=== PATIENT | female | born 1990 | race Caucasian/White ===

== ENCOUNTER 2017-07-11 23:50 | Inpatient (IN) | payer MEDICAID, OTHER ==
[~2017-07-11] VITALS: Ht 165.1 cm; Wt 68.0 kg
[2017-07-11 23:53] VITALS: Ht 165.1 cm; Wt 68.0 kg
[2017-07-12] VITALS (8 sets, daily range): BP systolic 103–115; BP diastolic 72–81; PULSE 90–103; RESP 13–18; TEMP 98.3
[2017-07-12] MEDS ORDERED: SOD CHLORIDE 0.9% 1,000 ML IV STA (00:43)
[2017-07-12 03:11] LABS: BASOPHIL # 0.1 10^3/ul (0.0-0.1); BASOPHILS % 0.5 % (0.0-2.0); EOSINOPHILS # 0.1 10^3/ul (0.0-0.5); HEMATOCRIT 37.5 % (37.0-47.0); HEMOGLOBIN 13.6 g/dl (12.0-16.0); LYMPHOCYTES # 2.7 10^3/ul (0.8-2.9); LYMPHOCYTES % 23.9 % (15.0-51.0); MEAN CORPUSCULAR HGB CONC 36.3 g/dl (32.0-37.0); MEAN CORPUSCULAR VOLUME 82.8 fl (82.0-101.0); MEAN PLATELET VOLUME 10.1 fl (7.4-10.4); MONOCYTE # 1.2 10^3/ul (0.3-0.9); MONOCYTES % 10.5 % (0.0-11.0); NEUTROPHILS % 63.3 % (39.0-77.0); PLATELET COUNT 320 10^3/UL (140-415); RED BLOOD COUNT 4.53 10^6/ul (4.20-5.40); WHITE BLOOD COUNT 11.3 10^3/ul (4.8-10.8)
[2017-07-12 03:18] LABS: ADD UMIC YES; UR ASCORBIC ACID NEGATIVE (NEGATIVE); UR BILIRUBIN (Dip) NEGATIVE (NEGATIVE); UR BLOOD (Dip) 1+ mg/dL (NEGATIVE); UR CLARITY CLEAR (CLEAR); UR COLOR STRAW (YELLOW); UR GLUCOSE (Dip) 3+ mg/dL (NEGATIVE); UR KETONES (Dip) 2+ mg/dL (NEGATIVE); UR LEUKOCYTE ESTERASE (Dip) 1+ Leu/ul (NEGATIVE); UR MUCUS FEW /HPF (NONE SEEN); UR NITRITE (Dip) NEGATIVE (NEGATIVE); UR RBC 3 /HPF (0-5); UR SPECIFIC GRAVITY (Dip) 1.009 (1.003-1.030); UR SQUAMOUS EPITHELIAL CELL FEW /HPF (FEW); UR TOTAL PROTEIN (Dip) 1+ mg/dl (NEGATIVE); UR UROBILINOGEN (Dip) NEGATIVE (NEGATIVE)
[2017-07-12 03:38] LABS: ALBUMIN 4.1 g/dl (3.3-4.9); ALBUMIN/GLOBULIN RATIO 1.32; BILIRUBIN,INDIRECT 0.4 mg/dl (0-1.1); BILIRUBIN,TOTAL 0.4 mg/dl (0.2-1.3); CALCIUM 8.9 mg/dl (8.4-10.2); CREATININE 0.81 mg/dl (0.44-1.00); POTASSIUM 3.1 mmol/L (3.5-5.1); TOTAL PROTEIN 7.2 g/dl (6.1-8.1)
[2017-07-12] MEDS ORDERED: POTASSIUM CHLORIDE (SR) 20 MEQ TAB PO ONE (04:16)
[2017-07-12] MEDS ORDERED: CEFTRIAXONE 1 GM/50 ML (PMX) 50 ML IVPB ONE (04:30)
[2017-07-12] MEDS ORDERED: SOD CHLORIDE 0.9% 1,000 ML IV ONE ×2 (06:00)
[2017-07-12] MEDS ORDERED: INSULIN HUMAN REGULAR 100 UNIT in SOD CHLORIDE 0.9% 99 ML IV SCH ×2 (06:15→16:00)
[2017-07-12] MEDS ORDERED: DEXTROSE 50% 25 ML IV PRN (06:30)
[2017-07-12] MEDS ORDERED: ADJUSTMENT OF INSULIN INFUSION RATE (DKA PROTOCOL) XX SCH (06:30)
[2017-07-12] MEDS ORDERED: DEXTROSE 50% 50 ML IV PRN (06:30)
[2017-07-12] MEDS ORDERED: SOD CHLORIDE 0.9% 1,000 ML IV SCH ×2 (06:48→10:30)
[2017-07-12] MEDS ORDERED: POTASSIUM CHLORIDE 20 MEQ in SOD CHLORIDE 0.9% 1,000 ML IV SCH (07:00)
[2017-07-12] MEDS: NS + KCL 20 MEQ 1,000 ML IV SCH ×2 (07:00→16:00)
[2017-07-12] MEDS ORDERED: morphine 2 MG INJ IV PRN (07:00)
[2017-07-12] MEDS ORDERED: ACETAMINOPHEN 650MG/20.3ML CUP PO PRN (07:00)
[2017-07-12] MEDS ORDERED: ONDANSETRON 4 MG INJ IV PRN (07:00)
[2017-07-12] MEDS: PANTOPRAZOLE 40 MG INJ IV SCH (07:15)
[2017-07-12] MEDS ORDERED: POTASSIUM CHLORIDE (SR) 20 MEQ TAB PO STA (07:17)
--- NOTE | 2017-07-12 07:19 | ERA ---
ER Documentation Chief Complaint Date/Time DATE: 07/12/17 TIME: 07:12 Chief Complaint bib , cc: hyperglycemia, insulin drip. ama from [place],[id number] HPI 27-year-old female presents for new onset diabetes just diagnosed in [place] 2 days ago as well as feeling generally "bad", as well as intermittent shortness of breath. She previously had no medical problems. She has been Urinating more than usual as well. ROS All systems reviewed and are negative except as per history of present illness. Medications Home Meds No Active Prescriptions or Reported Meds Allergies Allergies: Coded Allergies: No Known Allergy (Unverified , 07/11/17) PMhx/Soc History of Surgery: No Anesthesia Reaction: No Hx Neurological Disorder: No Hx Respiratory Disorders: No Hx Cardiac Disorders: No Hx Psychiatric Problems: No Hx Miscellaneous Medical Probl: No Hx Alcohol Use: Yes (SOCIALLY 1 PER 3 MONTHS) Hx Substance Use: No Hx Tobacco Use: No Smoking Status: Never smoker Physical Exam Vitals Vital Signs Date Time Temp Pulse Resp B/P Pulse Ox O2 Delivery O2 Flow Rate FiO2 07/12/17 07:00 98.3 83 20 92/72 100 Room Air 07/12/17 05:05 98.0 93 20 98/70 100 Room Air 07/12/17 03:00 98.9 90 22 108/79 100 Room Air 07/12/17 01:00 98.5 94 17 109/78 100 Room Air 07/11/17 23:53 98.6 81 19 126/81 100 Physical Exam Const: [] Mild distress, appears uncomfortable Head: Atraumatic Eyes: Normal Conjunctiva ENT: Normal External Ears, Nose and Mouth. Neck: Full range of motion..~ No meningismus. Resp: Clear to auscultation bilaterally Cardio: Regular rate and rhythm, no murmurs Abd: Soft, non tender, non distended. Normal bowel sounds Skin: No petechiae or rashes Back: No midline or flank tenderness Ext: No cyanosis, or edema Neur: Awake and alert Psych: Normal Mood and Affect Result Diagram: 07/12/17 0300 07/12/17 0300 Results 24 hrs Laboratory Tests Test 07/12/17 00:08 07/12/17 00:49 07/12/17 02:50 07/12/17 03:00 Bedside Glucose 326mg/dL 299mg/dL Urine Color STRAW Urine Clarity CLEAR Urine pH 6.0 Urine Specific [place] 1.009 Urine Ketones 2+mg/dL Urine Nitrite NEGATIVEmg/dL Urine Bilirubin NEGATIVEmg/dL Urine Urobilinogen NEGATIVEmg/dL Urine Leukocyte Esterase 1+[place]/ul Urine Microscopic RBC 3/HPF Urine Microscopic WBC 2/HPF Urine Squamous Epithelial Cells FEW/HPF Urine Mucus FEW/HPF Urine Hemoglobin 1+mg/dL Urine Glucose 3+mg/dL Urine Total Protein 1+mg/dl White Blood Count 11.310^3/ul Red Blood Count 4.5310^6/ul Hemoglobin 13.6g/dl Hematocrit 37.5% Mean Corpuscular Volume 82.8fl Mean Corpuscular Hemoglobin 30.0pg Mean Corpuscular Hemoglobin Concent 36.3g/dl Red Cell Distribution Width 15.0% Platelet Count 53722^3/UL Mean Platelet Volume 10.1fl Neutrophils % 63.3% Lymphocytes % 23.9% Monocytes % 10.5% Eosinophils % 1.0% Basophils % 0.5% Nucleated Red Blood Cells % 0.0/100WBC Neutrophils # (Manual) 7.110^3/ul Lymphocytes # 2.710^3/ul Monocytes # 1.210^3/ul Eosinophils # 0.110^3/ul Basophils # 0.110^3/ul Nucleated Red Blood Cells # 0.010^3/ul Sodium Level 142mmol/L Potassium Level 3.1mmol/L Chloride Level 110mmol/L Carbon Dioxide Level 10mmol/L Anion Gap 25 Blood Urea Nitrogen 3mg/dl Creatinine 0.81mg/dl Glucose Level 293mg/dl Hemoglobin A1c % Calcium Level 8.9mg/dl Total Bilirubin 0.4mg/dl Direct Bilirubin 0.00mg/dl Indirect Bilirubin 0.4mg/dl Aspartate Amino Transf (AST/SGOT) 35IU/L Alanine Aminotransferase (ALT/SGPT) 68IU/L Alkaline Phosphatase 163IU/L Troponin I < 0.012ng/ml Total Protein 7.2g/dl Albumin 4.1g/dl Globulin 3.10g/dl Albumin/Globulin Ratio 1.32 Lipase 384U/L Serum HCG, Qualitative NEGATIVE Current Medications Medications (Trade) Dose Ordered Sig/Barak Route PRN Reason Start Time Stop Time Status Last Admin Dose Admin Sodium Chloride 1,000 ml @ 1,000 mls/hr Q1H STAT IV 07/12/17 00:43 07/12/17 01:42 DC 07/12/17 01:42 Ceftriaxone Sodium (Rocephin) 50 ml @ 100 mls/hr ONCE ONCE IVPB 07/12/17 04:30 07/12/17 04:59 DC 07/12/17 04:21 Potassium Chloride 40 meq 40 meq ONCE ONCE PO 07/12/17 04:16 07/12/17 04:17 DC 07/12/17 04:21 Sodium Chloride 1,000 ml @ 1,000 mls/hr Q1H ONCE IV 07/12/17 06:00 07/12/17 06:59 DC 07/12/17 06:36 Sodium Chloride 1,000 ml @ 1,000 mls/hr Q1H ONCE IV 07/12/17 06:00 07/12/17 06:59 DC Insulin Human Regular/Sodium Chloride (Novolin-R/NS) 100 ml @ 6.8 mls/hr TITRATE IV 07/12/17 06:15 07/13/17 06:14 07/12/17 07:02 Miscellaneous Information 1 ea NOTE XX 07/12/17 06:30 Dextrose (D50w Syringe) 25 ml PRN PRN IV DECREASED GLUCOSE 07/12/17 06:30 Dextrose 50 ml 50 ml PRN PRN IV DECREASED GLUCOSE 07/12/17 06:30 Sodium Chloride (NS) 1,000 ml @ 125 mls/hr Q8H IV 07/12/17 06:48 07/12/17 06:54 DC Ondansetron HCl (Zofran Inj) 4 mg Q6H PRN IV NAUSEA AND/OR VOMITING 07/12/17 07:00 Acetaminophen (Tylenol Liquid) 650 mg Q6H PRN PO PAIN LEVEL 1-3 OR FEVER 07/12/17 07:00 Morphine Sulfate (morphine) 2 mg Q4H PRN IV PAIN LEVEL 7-10 07/12/17 07:00 Pantoprazole 40 mg 40 mg DAILY@06 IV 07/12/17 07:00 Potassium Chloride 20 meq/ Sodium Chloride 1,010 ml @ 125 mls/hr Q8H5M IV 07/12/17 07:00 07/12/17 07:00 DC Potassium Chloride/Sodium Chloride (NS-KCl 20 Meq) 1,000 ml @ 125 mls/hr Q8H IV 07/12/17 07:00 Procedures/MDM Diabetic ketoacidosis with as diagnosis of diabetes mellitus. Initial presentation for new onset diabetes. She is given 3 L of normal saline emergency room and started on insulin drip. Hemoglobin A1c was so high that had to be sent out in order to be read properly. Patient will need to be started on Procrit diabetic therapy in the hospital after resolution of her DKA. She is feeling better after fluid administration. She did have a EKG with possible signs of ischemia with T-wave inversions however she has a negative troponin and no chest pain. Dr. Moreira is admitting to the ICU. EKG interpretation: Normal sinus rhythm, normal axis, T-wave inversions in leads III and aVF concerning for possible ischemia. patient monitor interpretation: Normal sinus rhythm with mild sinus tachycardia no other arrhythmias Critical care time greater than 35 minutes: This includes treatment of DKA, use of insulin drip, all visits patient's bedside to reassess status, repeated chart review for changing laboratories and electrolytes, discussion with admitting doctor and patient. This does not include any billable procedures Departure Diagnosis: Primary Impression: DKA (diabetic ketoacidoses) Condition: Serious KYLAHJULIADEENALAURIE ASHER Jul 12, 2017 07:19
[2017-07-12 07:31] LABS: CALCIUM 8.4 mg/dl (8.4-10.2); CREATININE 0.76 mg/dl (0.44-1.00)
[2017-07-12 07:33] LABS: POTASSIUM 2.6 mmol/L (3.5-5.1)
[2017-07-12] MEDS: CIPROFLOXACIN 400MG/D5W 200 ML IVPB SCH ×2 (08:21→21:32)
[2017-07-12] MEDS ORDERED: INSULIN HUMAN REGULAR 100 UNIT in SOD CHLORIDE 0.9% 99 ML IV STA (08:22)
[2017-07-12] MEDS ORDERED: DEXTROSE 50% 50 ML SYRINGE IV PRN ×6 (08:30→18:00)
[2017-07-12] MEDS ORDERED: ACCU-CHEK XX SCH (08:30)
[2017-07-12] MEDS ORDERED: POTASSIUM CHLORIDE 50 ML IVPB PRN (08:30)
[2017-07-12] MEDS ORDERED: D5-NS + KCL 20 MEQ 1,000 ML IV SCH (09:30)
[2017-07-12 09:37] LABS: CALCIUM 7.9 mg/dl (8.4-10.2); CREATININE 0.79 mg/dl (0.44-1.00)
[2017-07-12 09:43] LABS: POTASSIUM 2.4 mmol/L (3.5-5.1)
[2017-07-12] MEDS: POTASSIUM CHLORIDE 250 ML IVPB SCH ×3 (11:20→17:44)
[2017-07-12 11:39] LABS: ANION GAP 17 (8-16); CALCIUM 8.2 mg/dl (8.4-10.2); CARBON DIOXIDE 12 mmol/L (21-31); CHLORIDE 116 mmol/L (97-110); CREATININE 0.62 mg/dl (0.44-1.00); GLUCOSE 258 mg/dl (70-220); SODIUM 142 mmol/L (135-144)
[2017-07-12 11:41] LABS: BLOOD UREA NITROGEN < 2 mg/dl (7-20)
[2017-07-12 11:42] LABS: POTASSIUM 2.6 mmol/L (3.5-5.1)
[2017-07-12 13:09] LABS: ANION GAP 19 (8-16); CALCIUM 8.4 mg/dl (8.4-10.2); CARBON DIOXIDE 10 mmol/L (21-31); CHLORIDE 116 mmol/L (97-110); CREATININE 0.64 mg/dl (0.44-1.00); GLUCOSE 289 mg/dl (70-220); SODIUM 142 mmol/L (135-144)
[2017-07-12 13:10] LABS: BLOOD UREA NITROGEN < 2 mg/dl (7-20)
[2017-07-12 13:12] LABS: POTASSIUM 2.9 mmol/L (3.5-5.1)
--- NOTE | 2017-07-12 14:01 | HP ---
Date/Time of Note Date/Time of Note DATE: 07/12/17 TIME: 13:51 Assessment/Plan VTE Prophylaxis VTE Prophylaxis Intervention: SCD's Assessment/Plan Assessment/Plan ASSESSMENT 27 yo female with newly diagnosed diabetes few days ago now with DKA PLAN ICU admission cont DKA protocol correct electrolytes as needed Endocrine consult has been placed HPI/ROS Admit Date/Time Admit Date/Time Hx of Present Illness This is a 27 yo female who was recently diagnosed with diabetes few days ago presented to ER c/o elevated glucose. She was admitted in a hospital in [place] 3 days ago, but left AMA not to miss her flight. In ER, labs consistent with DKA and has been started on DKA protocol. She has been severely hypokalemic requiring stopping insulin periodicly. She denied fever, chills, CP or SOB. Urinalysis neg for UTI. PMH/Family/Social Social History Smoking Status: Never smoker Exam/Review of Systems Vital Signs Vitals Vital Signs Date Time Temp Pulse Resp B/P Pulse Ox O2 Delivery O2 Flow Rate FiO2 07/12/17 13:09 88 20 106/73 100 Room Air 07/12/17 11:00 98.3 Labs Result Diagram: 07/12/17 0300 07/12/17 1200 Medications Medications Current Medications Ondansetron HCl (Zofran Inj) 4 mg Q6H PRN IV NAUSEA AND/OR VOMITING Last administered on 07/12/17 09:48; Admin Dose 4 MG; Start 07/12/17 at 07:00 Acetaminophen (Tylenol Liquid) 650 mg Q6H PRN PO PAIN LEVEL 1-3 OR FEVER; Start 07/12/17 at 07:00 Morphine Sulfate (morphine) 2 mg Q4H PRN IV PAIN LEVEL 7-10; Start 07/12/17 at 07:00 Pantoprazole 40 mg 40 mg DAILY@06 IV Last administered on 07/12/17 07:15; Admin Dose 40 MG; Start 07/12/17 at 07:00 Potassium Chloride/Sodium Chloride 1,000 ml @ 125 mls/hr Q8H IV Last administered on 07/12/17 07:00; Admin Dose 125 MLS/HR; Start 07/12/17 at 07:00 Ciprofloxacin/ Dextrose (Cipro Ivpb) 200 ml @ 200 mls/hr Q12 IVPB Last administered on 07/12/17 08:21; Admin Dose 200 MLS/HR; Start 07/12/17 at 09:00 Dextrose (D50w Syringe) 50 ml Q15M PRN IV For BS 50 or less; Start 07/12/17 at 08:30 Dextrose (D50w Syringe) 25 ml Q15M PRN IV BS between 50-70; Start 07/12/17 at 08 :30 Diagnostic Test (Pha) 1 ea 1 ea Q1H XX Last administered on 07/12/17 09:00; Admin Dose 1 EA; Start 07/12/17 at 08:30 Potassium Chloride 250 ml @ 62.5 mls/hr Q4H IVPB Last administered on 11:20; Admin Dose 62.5 MLS/HR; Start 07/12/17 at 10:30; Stop 07/12/17 at 18: 29 Sodium Chloride (NS) 1,000 ml @ 150 mls/hr Q6H40M IV ; Start 07/12/17 at 10:30 NICK ARAUJO MD Jul 12, 2017 14:01
[2017-07-12 14:23] LABS: ANION GAP 19 (8-16); CALCIUM 8.1 mg/dl (8.4-10.2); CHLORIDE 118 mmol/L (97-110); CREATININE 0.65 mg/dl (0.44-1.00); GLUCOSE 316 mg/dl (70-220); POTASSIUM 3.4 mmol/L (3.5-5.1); SODIUM 142 mmol/L (135-144)
[2017-07-12 14:25] LABS: BLOOD UREA NITROGEN < 2 mg/dl (7-20)
[2017-07-12 14:26] LABS: CARBON DIOXIDE 8 mmol/L (21-31)
[2017-07-12] MEDS: ACCU-CHEK XX SCH ×8 (16:07→23:00)
[2017-07-12 17:20] LABS: ANION GAP 21 (8-16); CALCIUM 8.8 mg/dl (8.4-10.2); CHLORIDE 120 mmol/L (97-110); CREATININE 0.67 mg/dl (0.44-1.00); GLUCOSE 296 mg/dl (70-220); SODIUM 147 mmol/L (135-144)
[2017-07-12 17:38] LABS: BLOOD UREA NITROGEN < 2 mg/dl (7-20)
[2017-07-12 17:40] LABS: CARBON DIOXIDE 9 mmol/L (21-31); POTASSIUM 2.9 mmol/L (3.5-5.1)
--- NOTE | 2017-07-12 17:42 | CONS ---
Date/Time of Note Date/Time of Note DATE: 07/12/17 TIME: 17:29 Assessment/Plan Assessment/Plan Problems: (1) DKA (diabetic ketoacidoses) Status: Acute Comment: Continue IV fluid. Will reduce tonicity from normal saline to half- normal saline to improve hyperchloremic acidosis. Continue IV dextrose and maintain goal blood glucose between 150 and 250 mg/dL. Continue IV insulin drip at 0.1 U/kg/h until anion gap closed and bicarbonate normalizing. Will initiate Lantus tonight at 14 units. Once patient starts p.o. diet tomorrow can start NovoLog at 6 units before each meal. Qualifiers: (2) New onset type 1 diabetes mellitus, uncontrolled Status: Acute Comment: Very strong suspicion of diagnosis type 1 diabetes in this patient. Will order jenelle 65 antibody and insulin autoantibody and islet cell antibodies. Patient will require extensive diabetes education which I have initiated today. Consultation Date/Type/Reason Admit Date/Time July 12, 2017 at 2 PM Date of Consultation: Jul 12, 2017 Type of Consultation: Endocrinology Reason for Consultation Diabetic ketoacidosis Referring Provider: NICK ARAUJO MD Hx of Present Illness 27-year-old female without significant past medical history in usual state of health until approximately 2-3 weeks ago when she developed new onset polydipsia and polyuria. Admits to weight loss of greater than 30 pounds in the last month. Positive nocturia 2-3 times a night for the last 2-3 weeks. 2 weeks ago patient with single episode of recurrent emesis that she thought was food poisoning. Last week went on a family vacation to [place]. While out hiking patient developed severe shortness of breath. Did not improve with stopping to rest. Paramedics called and patient was found to have hyperglycemia. She was mentally out of it as she states and did not really understand the diagnosis. Admitted to outside hospital intensive care unit for DKA. However before treatment could be completed she left the hospital AGAINST MEDICAL ADVICE to make her flight home. Patient was given a single injection of long-acting insulin and told to go straight to the hospital when she arrived home. When she arrived here at [facility] she was found to still be in diabetic ketoacidosis. Glucose was 300 mg/dL, bicarbonate was 10, there were ketones in the urine, and the anion gap was open. Patient started on IV insulin drip and admitted to care unit. Endocrinology consulted. 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 [employer], , one child Alcohol Use: occasionally Smoking Status: Never smoker Drug Use: none Exam/Review of Systems Vital Signs Vitals VS - Last 72 Hours, by Label Date Time Temp Pulse Resp B/P Pulse Ox O2 Delivery O2 Flow Rate FiO2 07/12/17 16:00 90 07/12/17 15:45 98.2 16 108/72 98 Room Air 07/12/17 14:00 83 22 93/56 99 Room Air 07/12/17 13:09 88 20 106/73 100 Room Air 07/12/17 11:00 98.3 97 20 110/81 99 Room Air 07/12/17 10:00 98.3 93 20 110/74 99 Room Air 07/12/17 09:00 98.3 86 20 105/74 98 Room Air 07/12/17 08:00 98.3 83 20 104/77 100 Room Air 07/12/17 07:00 98.3 83 20 92/72 100 Room Air 07/12/17 06:30 98.3 86 20 104/67 98 Room Air 07/12/17 05:05 98.0 93 20 98/70 100 Room Air 07/12/17 03:00 98.9 90 22 108/79 100 Room Air 07/12/17 01:00 98.5 94 17 109/78 100 Room Air 07/11/17 23:53 98.6 81 19 126/81 100 Vital Signs Date Time Temp Pulse Resp B/P Pulse Ox O2 Delivery O2 Flow Rate FiO2 07/12/17 16:00 90 07/12/17 15:45 98.2 16 108/72 98 Room Air Exam Constitutional: alert, oriented, well developed Psych: nl mood/affect, no complaints Eyes: EOMI, PERRL, nl conjunctiva, nl lids, nl sclera ENMT: nl external ears & nose, No mucosa pink and moist (Tacky and dry) Neck: non-tender, supple, No bruits, No masses, No thyromegaly Respiratory: clear to auscultation, normal air movement Cardiovascular: nl pulses, regular rate and rhythm, No edema, No murmurs/extra sounds, No rub Gastrointestinal: bowel sounds, nl liver, spleen, non-tender, soft, No mass, No rebound or guarding Musculoskeletal: nl extremities to inspection Extremities: normal pulses, No clubbing, No cyanosis, No edema Neurological: HATCHERY WORKER II-XII intact, nl mental status, nl speech, nl strength Additional Comments Bedside Glucose - 72 Hours Test 07/12/17 00:08 07/12/17 00:49 07/12/17 06:48 07/12/17 08:01 Bedside Glucose 326mg/dL (70-220) H 299mg/dL (70-220) H 270mg/dL (70-220) H 243mg/dL (70-220) H Test 07/12/17 09:02 07/12/17 10:02 07/12/17 11:02 07/12/17 12:04 Bedside Glucose 241mg/dL (70-220) H 217mg/dL (70-220) 252mg/dL (70-220) H 273mg/dL (70-220) H Test 07/12/17 12:46 07/12/17 16:06 Bedside Glucose 291mg/dL (70-220) H 278mg/dL (70-220) H Results Result Diagram: 07/12/17 0300 07/12/17 1355 Results 24 hrs Laboratory Tests Test 07/12/17 00:08 07/12/17 00:49 07/12/17 02:50 07/12/17 03:00 Bedside Glucose 326 H 299 H Urine Color STRAW Urine Clarity CLEAR Urine pH 6.0 Urine Specific [place] 1.009 Urine Ketones 2+ H Urine Nitrite NEGATIVE Urine Bilirubin NEGATIVE Urine Urobilinogen NEGATIVE Urine Leukocyte Esterase 1+ H Urine Microscopic RBC 3 Urine Microscopic WBC 2 Urine Squamous Epithelial Cells FEW Urine Mucus FEW A Urine Hemoglobin 1+ H Urine Glucose 3+ H Urine Total Protein 1+ H White Blood Count 11.3 H Red Blood Count 4.53 Hemoglobin 13.6 Hematocrit 37.5 Mean Corpuscular Volume 82.8 Mean Corpuscular Hemoglobin 30.0 Mean Corpuscular Hemoglobin Concent 36.3 Red Cell Distribution Width 15.0 H Platelet Count 320 Mean Platelet Volume 10.1 Neutrophils % 63.3 Lymphocytes % 23.9 Monocytes % 10.5 Eosinophils % 1.0 Basophils % 0.5 Nucleated Red Blood Cells % 0.0 Neutrophils # (Manual) 7.1 Lymphocytes # 2.7 Monocytes # 1.2 H Eosinophils # 0.1 Basophils # 0.1 Nucleated Red Blood Cells # 0.0 Sodium Level 142 Potassium Level 3.1 L Chloride Level 110 Carbon Dioxide Level 10 L Anion Gap 25 H Blood Urea Nitrogen 3 L Creatinine 0.81 Glucose Level 293 H Hemoglobin A1c Calcium Level 8.9 Total Bilirubin 0.4 Direct Bilirubin 0.00 Indirect Bilirubin 0.4 Aspartate Amino Transf (AST/SGOT) 35 Alanine Aminotransferase (ALT/SGPT) 68 Alkaline Phosphatase 163 H Troponin I < 0.012 Total Protein 7.2 Albumin 4.1 Globulin 3.10 Albumin/Globulin Ratio 1.32 Lipase 384 H Serum HCG, Qualitative NEGATIVE Test 07/12/17 06:42 07/12/17 06:48 07/12/17 08:01 07/12/17 08:55 Sodium Level 140 144 Potassium Level 2.6 *L 2.4 *L Chloride Level 112 H 117 H Carbon Dioxide Level 10 L 12 L Anion Gap 21 H 17 H Blood Urea Nitrogen 3 L 2 L Creatinine 0.76 0.79 Glucose Level 285 H 237 H Hemoglobin A1c Calcium Level 8.4 7.9 L Bedside Glucose 270 H 243 H Phosphorus Level 0.7 L Test 07/12/17 09:02 07/12/17 10:02 07/12/17 10:44 07/12/17 11:02 Bedside Glucose 241 H 217 252 H Sodium Level 142 Potassium Level 2.6 *L Chloride Level 116 H Carbon Dioxide Level 12 L Anion Gap 17 H Blood Urea Nitrogen < 2 L Creatinine 0.62 Glucose Level 258 H Calcium Level 8.2 L Test 07/12/17 12:00 07/12/17 12:04 07/12/17 12:46 07/12/17 13:55 Sodium Level 142 142 Potassium Level 2.9 *L 3.4 L Chloride Level 116 H 118 H Carbon Dioxide Level 10 L 8 *L Anion Gap 19 H 19 H Blood Urea Nitrogen < 2 L < 2 L Creatinine 0.64 0.65 Glucose Level 289 H 316 H Calcium Level 8.4 8.1 L Bedside Glucose 273 H 291 H Test 07/12/17 16:06 Bedside Glucose 278 H Medications Medications Current Medications Ondansetron HCl (Zofran Inj) 4 mg Q6H PRN IV NAUSEA AND/OR VOMITING Last administered on 07/12/17 09:48; Admin Dose 4 MG; Start 07/12/17 at 07:00 Acetaminophen (Tylenol Liquid) 650 mg Q6H PRN PO PAIN LEVEL 1-3 OR FEVER; Start 07/12/17 at 07:00 Morphine Sulfate (morphine) 2 mg Q4H PRN IV PAIN LEVEL 7-10; Start 07/12/17 at 07:00 Pantoprazole 40 mg 40 mg DAILY@06 IV Last administered on 07/12/17 07:15; Admin Dose 40 MG; Start 07/12/17 at 07:00 Potassium Chloride/Sodium Chloride 1,000 ml @ 125 mls/hr Q8H IV Last administered on 07/12/17 07:00; Admin Dose 125 MLS/HR; Start 07/12/17 at 07:00 Ciprofloxacin/ Dextrose 200 ml @ 200 mls/hr Q12 IVPB Last administered on 08:21; Admin Dose 200 MLS/HR; Start 07/12/17 at 09:00 Potassium Chloride 250 ml @ 62.5 mls/hr Q4H IVPB Last administered on 11:20; Admin Dose 62.5 MLS/HR; Start 07/12/17 at 10:30; Stop 07/12/17 at 18: 29 Sodium Chloride (NS) 1,000 ml @ 150 mls/hr Q6H40M IV Last administered on 16:00; Admin Dose 150 MLS/HR; Start 07/12/17 at 10:30; Status Future Hold Dextrose (D50w Syringe) 50 ml Q15M PRN IV For BS 50 or less; Start 07/12/17 at 16:00 Dextrose (D50w Syringe) 25 ml Q15M PRN IV BS between 50-70; Start 07/12/17 at 16 :00 Diagnostic Test (Pha) (Accu-Chek) 1 ea Q1H XX Last administered on 9/7/17at 16: 07; Admin Dose 1 EA; Start 07/12/17 at 16:00 HANNAH COX MD Jul 12, 2017 17:41
[2017-07-12] MEDS ORDERED: GLUCOSE GEL 15 GRAM TUBE PO PRN ×2 (18:00)
[2017-07-12] MEDS ORDERED: GLUCAGON 1 MG INJ IM PRN (18:00)
[2017-07-12] MEDS ORDERED: GLUCOSE GEL 15 GRAM TUBE BUCCAL PRN (18:00)
[2017-07-12 19:32] LABS: ANION GAP 15 (8-16); BLOOD UREA NITROGEN < 2 mg/dl (7-20); CALCIUM 8.9 mg/dl (8.4-10.2); CARBON DIOXIDE 13 mmol/L (21-31); CHLORIDE 121 mmol/L (97-110); CREATININE 0.61 mg/dl (0.44-1.00); GLUCOSE 238 mg/dl (70-220); POTASSIUM 3.1 mmol/L (3.5-5.1); SODIUM 146 mmol/L (135-144)
[2017-07-12] MEDS: D5W-0.45 NACL + KCL 40 MEQ 1,000 ML IV SCH (20:42)
[2017-07-12] MEDS: INSULIN GLARGINE [LANtus] 3 ML PEN SC SCH (21:02)
[2017-07-12 21:30] LABS: ANION GAP 16 (8-16); CARBON DIOXIDE 13 mmol/L (21-31); CHLORIDE 121 mmol/L (97-110); CREATININE 0.62 mg/dl (0.44-1.00); GLUCOSE 212 mg/dl (70-220); SODIUM 147 mmol/L (135-144)
[2017-07-12 21:38] LABS: BLOOD UREA NITROGEN < 2 mg/dl (7-20)
[2017-07-12 22:44] LABS: ANION GAP 16 (8-16); CALCIUM 9.2 mg/dl (8.4-10.2); CARBON DIOXIDE 13 mmol/L (21-31); CHLORIDE 121 mmol/L (97-110); CREATININE 0.63 mg/dl (0.44-1.00); GLUCOSE 207 mg/dl (70-220); POTASSIUM 3.3 mmol/L (3.5-5.1); SODIUM 147 mmol/L (135-144)
[2017-07-12 22:46] LABS: BLOOD UREA NITROGEN < 2 mg/dl (7-20)
[2017-07-13] VITALS (24 sets, daily range): BP systolic 94–113; BP diastolic 64–91; PULSE 82–108; RESP 9–21
[2017-07-13] MEDS: D5W-0.45 NACL + KCL 40 MEQ 1,000 ML IV SCH ×2 (00:10→02:19)
[2017-07-13] MEDS: ACCU-CHEK XX SCH ×12 (01:00→13:00)
[2017-07-13 03:06] LABS: ANION GAP 13 (8-16); CARBON DIOXIDE 16 mmol/L (21-31); CHLORIDE 120 mmol/L (97-110); CREATININE 0.58 mg/dl (0.44-1.00); GLUCOSE 289 mg/dl (70-220); POTASSIUM 4.5 mmol/L (3.5-5.1); SODIUM 144 mmol/L (135-144)
[2017-07-13 03:40] LABS: BLOOD UREA NITROGEN < 2 mg/dl (7-20)
[2017-07-13] MEDS: PANTOPRAZOLE 40 MG INJ IV SCH (06:04)
[2017-07-13 06:51] LABS: ANION GAP 12 (8-16); CALCIUM 9.7 mg/dl (8.4-10.2); CARBON DIOXIDE 17 mmol/L (21-31); CHLORIDE 118 mmol/L (97-110); CREATININE 0.61 mg/dl (0.44-1.00); GLUCOSE 117 mg/dl (70-220); POTASSIUM 3.2 mmol/L (3.5-5.1); SODIUM 144 mmol/L (135-144)
[2017-07-13 07:04] LABS: BLOOD UREA NITROGEN < 2 mg/dl (7-20)
[2017-07-13] MEDS: CIPROFLOXACIN 400MG/D5W 200 ML IVPB SCH (09:52)
[2017-07-13 12:48] LABS: ANION GAP 14 (8-16); CALCIUM 9.5 mg/dl (8.4-10.2); CARBON DIOXIDE 19 mmol/L (21-31); CHLORIDE 112 mmol/L (97-110); CREATININE 0.65 mg/dl (0.44-1.00); GLUCOSE 270 mg/dl (70-220); POTASSIUM 3.1 mmol/L (3.5-5.1); SODIUM 142 mmol/L (135-144)
[2017-07-13 13:01] LABS: BLOOD UREA NITROGEN < 2 mg/dl (7-20)
[2017-07-13 13:51] LABS: ANION GAP 14 (8-16); CALCIUM 9.3 mg/dl (8.4-10.2); CARBON DIOXIDE 17 mmol/L (21-31); CHLORIDE 114 mmol/L (97-110); CREATININE 0.58 mg/dl (0.44-1.00); GLUCOSE 265 mg/dl (70-220); SODIUM 142 mmol/L (135-144)
[2017-07-13 13:55] LABS: BLOOD UREA NITROGEN < 2 mg/dl (7-20)
[2017-07-13 13:56] LABS: POTASSIUM 2.8 mmol/L (3.5-5.1)
[2017-07-13] MEDS ORDERED: POTASSIUM CHLORIDE (SR) 20 MEQ TAB PO STA (13:56)
[2017-07-13] MEDS ORDERED: Discontinue current oral sulfonylureas (glyburide, glipizide, and/or glimepiride) prior to XX ONE (14:00)
[2017-07-13] MEDS ORDERED: HYPOGLYCEMIA PROTOCOL when Glucose is <70 mg/dL or symptomatic <90 mg/dL. XX ONE (14:00)
[2017-07-13 14:12] LABS: MICROALBUMIN 1.3 mg/dL
--- NOTE | 2017-07-13 16:24 | PN ---
Date/Time of Note Date/Time of Note DATE: 07/13/17 TIME: 16:17 Assessment/Plan VTE Prophylaxis VTE Prophylaxis Intervention: LMWH Lines/Catheters IV Catheter Type (from Nrsg): Peripheral IV Assessment/Plan Assessment/Plan ASSESSMENT 27 yo female with newly diagnosed diabetes few days ago in [place] presented with Generalized weakness, shortness of breath found to be in DKA. PLAN Cont ICU monitoring cont DKA protocol, mgmt per Endocrine correct electrolytes as needed Start ceftriaxone for strep UTI Subjective 24 Hr Interval Summary Free Text/Dictation c/o feeling tired and "sweet taste in my mouth" Exam/Review of Systems Vital Signs Vitals Vital Signs Date Time Temp Pulse Resp B/P Pulse Ox O2 Delivery O2 Flow Rate FiO2 07/13/17 15:00 99 16 110/74 98 Room Air 07/13/17 12:00 98.2 Intake and Output 07/12/17 07/12/17 07/13/17 15:00 23:00 07:00 Intake Total 4000 ml 996.5 ml 1094.6 ml Output Total 800 ml 800 ml Balance 4000 ml 196.5 ml 294.6 ml Exam Constitutional: other (moderarely lethargic, but oriented and answering questions) Head: atraumatic, normocephalic Eyes: PERRL Respiratory: clear to auscultation Cardiovascular: other (tachycardic with regular rhythm) Gastrointestinal: non-tender, soft Extremities: normal pulses Results Result Diagram: 07/12/17 0300 07/13/17 1316 Results 24 hrs Laboratory Tests Test 07/12/17 16:25 07/12/17 17:20 07/12/17 18:07 07/12/17 18:45 Sodium Level 147 H 146 H Potassium Level 2.9 *L 3.1 L Chloride Level 120 H 121 H Carbon Dioxide Level 9 *L 13 L Anion Gap 21 H 15 Blood Urea Nitrogen < 2 L < 2 L Creatinine 0.67 0.61 Glucose Level 296 H 238 H Calcium Level 8.8 8.9 Bedside Glucose 251 H 226 H Test 07/12/17 19:12 07/12/17 20:34 07/12/17 20:40 07/12/17 21:15 Bedside Glucose 192 187 Sodium Level 147 H 147 H Potassium Level 3.0 L 3.3 L Chloride Level 121 H 121 H Carbon Dioxide Level 13 L 13 L Anion Gap 16 16 Blood Urea Nitrogen < 2 L < 2 L Creatinine 0.62 0.63 Glucose Level 212 207 Calcium Level 9.0 9.2 Test 07/12/17 21:31 07/12/17 22:14 07/12/17 23:29 07/13/17 00:42 Bedside Glucose 202 213 205 188 Test 07/13/17 01:46 07/13/17 02:13 07/13/17 02:38 07/13/17 03:53 Bedside Glucose 166 158 141 Sodium Level 144 Potassium Level 4.5 Chloride Level 120 H Carbon Dioxide Level 16 L Anion Gap 13 Blood Urea Nitrogen < 2 L Creatinine 0.58 Glucose Level 289 H Calcium Level 9.0 Test 07/13/17 04:38 07/13/17 05:48 07/13/17 05:51 07/13/17 06:24 Bedside Glucose 136 99 110 Sodium Level 144 Potassium Level 3.2 L Chloride Level 118 H Carbon Dioxide Level 17 L Anion Gap 12 Blood Urea Nitrogen < 2 L Creatinine 0.61 Glucose Level 117 # Calcium Level 9.7 Test 07/13/17 07:05 07/13/17 07:58 07/13/17 09:34 07/13/17 10:10 Bedside Glucose 128 150 220 270 H Test 07/13/17 11:01 07/13/17 11:55 07/13/17 12:06 07/13/17 13:01 Bedside Glucose 299 H 274 H 255 H Sodium Level 142 Potassium Level 3.1 L Chloride Level 112 H Carbon Dioxide Level 19 L Anion Gap 14 Blood Urea Nitrogen < 2 L Creatinine 0.65 Glucose Level 270 #H Calcium Level 9.5 Test 07/13/17 13:16 07/13/17 14:26 Sodium Level 142 Potassium Level 2.8 *L Chloride Level 114 H Carbon Dioxide Level 17 L Anion Gap 14 Blood Urea Nitrogen < 2 L Creatinine 0.58 Glucose Level 265 H Calcium Level 9.3 Bedside Glucose 208 Medications Medications Current Medications Ondansetron HCl (Zofran Inj) 4 mg Q6H PRN IV NAUSEA AND/OR VOMITING Last administered on 07/12/17t 09:48; Admin Dose 4 MG; Start 07/12/17 at 07:00 Acetaminophen (Tylenol Liquid) 650 mg Q6H PRN PO PAIN LEVEL 1-3 OR FEVER; Start 07/12/17 at 07:00 Morphine Sulfate (morphine) 2 mg Q4H PRN IV PAIN LEVEL 7-10; Start 07/12/17 at 07:00 Pantoprazole 40 mg 40 mg DAILY@06 IV Last administered on 07/13/17 06:04; Admin Dose 40 MG; Start 07/12/17 at 07:00 Ciprofloxacin/ Dextrose 200 ml @ 200 mls/hr Q12 IVPB Last administered on 09:52; Admin Dose 200 MLS/HR; Start 07/12/17 at 09:00 Sodium Chloride (NS) 1,000 ml @ 150 mls/hr Q6H40M IV Last administered on 16:00; Admin Dose 150 MLS/HR; Start 07/12/17 at 10:30; Status Future Hold Insulin Glargine (Lantus) 14 unit DAILY@20 SC Last administered on 07/12/17 21: 02; Admin Dose 14 UNIT; Start 07/12/17 at 20:00 Miscellaneous Information 1 ea NOTE XX ; Start 07/12/17 at 18:00 Glucose (Glutose) 15 gm Q15M PRN PO DECREASED GLUCOSE; Start 07/12/17 at 18:00 Glucose (Glutose) 22.5 gm Q15M PRN PO DECREASED GLUCOSE; Start 07/12/17 at 18:00 Dextrose (D50w Syringe) 25 ml Q15M PRN IV DECREASED GLUCOSE; Start 07/12/17 at 18:00 Dextrose (D50w Syringe) 50 ml Q15M PRN IV DECREASED GLUCOSE; Start 07/12/17 at 18:00 Glucagon (Glucagen) 1 mg Q15M PRN IM DECREASED GLUCOSE; Start 07/12/17 at 18:00 Glucose (Glutose) 15 gm Q15M PRN BUCCAL DECREASED GLUCOSE; Start 07/12/17 at 18: 00 Diagnostic Test (Pha) (Accu-Chek) 1 ea 02 XX ; Start 07/14/17 at 02:00 NICK ARAUJO MD Jul 13, 2017 16:24
[2017-07-13] MEDS: INSULIN ASPART [NOVOLOG] 3 ML PEN SC SCH ×5 (16:38→21:27)
--- NOTE | 2017-07-13 16:58 | CONS ---
Date/Time of Note Date/Time of Note DATE: 07/13/17 TIME: 16:55 Assessment/Plan Assessment/Plan Problems: (1) DKA (diabetic ketoacidoses) Status: Resolved Qualifiers: Diabetes mellitus type: type 1 (2) New onset type 1 diabetes mellitus, uncontrolled Status: Acute Comment: Patient is doing well status post diabetic ketoacidosis. Has received Lantus as of last night. Now starting diet with 6 units of NovoLog plus correction before each meal. Patient is to continue her diabetes education and become proficient in checking blood glucose levels and self administration of insulin. Once she has relatively good glycemic control and is comfortable with self-management she will be ready for discharge. Will monitor daily to see if insulin doses need to be adjusted up or down based on blood glucose levels. Consultation Date/Type/Reason Admit Date/Time Jul 12, 2017 at 06:05 Initial Consult Date 07/12/17 Type of Consultation: Endocrinology Reason for Consultation DKA Referring Provider: NICK ARAUJO MD 24 HR Interval Summary Constitutional: improved, no complaints Detailed Summary Respiratory: no complaints Cardiovascular: no complaints Gastrointestinal: no complaints Genitourinary: no complaints Musculoskeletal: no complaints Neurologic: no complaints Exam/Review of Systems Vital Signs Vitals VS - Last 72 Hours, by Label Date Time Temp Pulse Resp B/P Pulse Ox O2 Delivery O2 Flow Rate FiO2 07/13/17 16:00 93 07/13/17 15:00 99 16 110/74 98 Room Air 07/13/17 14:00 108 13 113/80 100 Room Air 07/13/17 13:00 96 13 102/79 99 Room Air 07/13/17 12:00 106 07/13/17 12:00 98.2 90 16 104/82 100 Room Air 07/13/17 11:00 91 15 101/79 99 Room Air Mechanical Ventilator 07/13/17 10:00 96 21 103/70 97 Room Air Mechanical Ventilator 07/13/17 09:00 82 13 101/76 100 Room Air Mechanical Ventilator 07/13/17 08:05 98.3 94 9 103/79 100 Room Air Mechanical Ventilator 07/13/17 08:00 93 07/13/17 07:00 88 15 103/74 98 07/13/17 06:00 95 11 105/77 99 07/13/17 05:00 88 13 109/78 98 Room Air 07/13/17 04:00 98.0 90 14 111/76 99 Room Air 07/13/17 04:00 93 07/13/17 03:00 93 14 105/76 98 Room Air 07/13/17 02:00 84 13 112/78 97 Room Air 07/13/17 01:00 98 15 112/84 97 Room Air 07/13/17 00:00 90 07/13/17 00:00 98.0 94 15 105/79 98 Room Air 07/12/17 23:00 96 15 103/74 98 Room Air 07/12/17 22:00 100 16 105/80 100 Room Air 07/12/17 21:00 103 16 110/81 99 Room Air 07/12/17 20:00 97.8 97 18 110/79 98 Room Air 07/12/17 20:00 96 07/12/17 19:00 103 13 115/78 100 Room Air 07/12/17 16:00 90 07/12/17 15:45 98.2 16 108/72 98 Room Air 07/12/17 14:00 83 22 93/56 99 Room Air 07/12/17 13:09 88 20 106/73 100 Room Air 07/12/17 11:00 98.3 97 20 110/81 99 Room Air 07/12/17 10:00 98.3 93 20 110/74 99 Room Air 07/12/17 09:00 98.3 86 20 105/74 98 Room Air 07/12/17 08:00 98.3 83 20 104/77 100 Room Air 07/12/17 07:00 98.3 83 20 92/72 100 Room Air 07/12/17 06:30 98.3 86 20 104/67 98 Room Air 07/12/17 05:05 98.0 93 20 98/70 100 Room Air 07/12/17 03:00 98.9 90 22 108/79 100 Room Air 07/12/17 01:00 98.5 94 17 109/78 100 Room Air 07/11/17 23:53 98.6 81 19 126/81 100 Vital Signs Date Time Temp Pulse Resp B/P Pulse Ox O2 Delivery O2 Flow Rate FiO2 07/13/17 16:00 93 07/13/17 15:00 16 110/74 98 Room Air 07/13/17 12:00 98.2 Intake and Output 07/12/17 07/12/17 07/13/17 15:00 23:00 07:00 Intake Total 4000 ml 996.5 ml 1094.6 ml Output Total 800 ml 800 ml Balance 4000 ml 196.5 ml 294.6 ml Exam Constitutional: alert, oriented, well developed Psych: nl mood/affect, no complaints Respiratory: clear to auscultation, normal air movement Cardiovascular: nl pulses, regular rate and rhythm, No edema, No murmurs/extra sounds, No rub Gastrointestinal: bowel sounds, nl liver, spleen, non-tender, soft, No mass, No rebound or guarding Musculoskeletal: nl extremities to inspection Extremities: normal pulses, No clubbing, No cyanosis, No edema Neurological: PRESS LEADER II-XII intact, nl mental status, nl speech, nl strength Additional Comments Bedside Glucose - 72 Hours Test 07/12/17 00:08 07/12/17 00:49 07/12/17 06:48 07/12/17 08:01 Bedside Glucose 326mg/dL (70-220) H 299mg/dL (70-220) H 270mg/dL (70-220) H 243mg/dL (70-220) H Test 07/12/17 09:02 07/12/17 10:02 07/12/17 11:02 07/12/17 12:04 Bedside Glucose 241mg/dL (70-220) H 217mg/dL (70-220) 252mg/dL (70-220) H 273mg/dL (70-220) H Test 07/12/17 12:46 07/12/17 16:06 07/12/17 17:20 07/12/17 18:07 Bedside Glucose 291mg/dL (70-220) H 278mg/dL (70-220) H 251mg/dL (70-220) H 226mg/dL (70-220) H Test 07/12/17 19:12 07/12/17 20:34 07/12/17 21:31 07/12/17 22:14 Bedside Glucose 192mg/dL (70-220) 187mg/dL (70-220) 202mg/dL (70-220) 213mg/dL (70-220) Test 07/12/17 23:29 07/13/17 00:42 07/13/17 01:46 07/13/17 02:13 Bedside Glucose 205mg/dL (70-220) 188mg/dL (70-220) 166mg/dL (70-220) 158mg/dL (70-220) Test 07/13/17 03:53 07/13/17 04:38 07/13/17 05:51 07/13/17 06:24 Bedside Glucose 141mg/dL (70-220) 136mg/dL (70-220) 99mg/dL (70-220) 110mg/dL (70-220) Test 07/13/17 07:05 07/13/17 07:58 07/13/17 09:34 07/13/17 10:10 Bedside Glucose 128mg/dL (70-220) 150mg/dL (70-220) 220mg/dL (70-220) 270mg/dL (70-220) H Test 07/13/17 11:01 07/13/17 11:55 07/13/17 13:01 07/13/17 14:26 Bedside Glucose 299mg/dL (70-220) H 274mg/dL (70-220) H 255mg/dL (70-220) H 208mg/dL (70-220) Test 07/13/17 16:17 Bedside Glucose 203mg/dL (70-220) Results Result Diagram: 07/12/17 0300 07/13/17 1316 Results 24 hrs Laboratory Tests Test 07/12/17 17:20 07/12/17 18:07 07/12/17 18:45 07/12/17 19:12 Bedside Glucose 251 H 226 H 192 Sodium Level 146 H Potassium Level 3.1 L Chloride Level 121 H Carbon Dioxide Level 13 L Anion Gap 15 Blood Urea Nitrogen < 2 L Creatinine 0.61 Glucose Level 238 H Calcium Level 8.9 Test 07/12/17 20:34 07/12/17 20:40 07/12/17 21:15 07/12/17 21:31 Bedside Glucose 187 202 Sodium Level 147 H 147 H Potassium Level 3.0 L 3.3 L Chloride Level 121 H 121 H Carbon Dioxide Level 13 L 13 L Anion Gap 16 16 Blood Urea Nitrogen < 2 L < 2 L Creatinine 0.62 0.63 Glucose Level 212 207 Calcium Level 9.0 9.2 Test 07/12/17 22:14 07/12/17 23:29 07/13/17 00:42 07/13/17 01:46 Bedside Glucose 213 205 188 166 Test 07/13/17 02:13 07/13/17 02:38 07/13/17 03:53 07/13/17 04:38 Bedside Glucose 158 141 136 Sodium Level 144 Potassium Level 4.5 Chloride Level 120 H Carbon Dioxide Level 16 L Anion Gap 13 Blood Urea Nitrogen < 2 L Creatinine 0.58 Glucose Level 289 H Calcium Level 9.0 Test 07/13/17 05:48 07/13/17 05:51 07/13/17 06:24 07/13/17 07:05 Sodium Level 144 Potassium Level 3.2 L Chloride Level 118 H Carbon Dioxide Level 17 L Anion Gap 12 Blood Urea Nitrogen < 2 L Creatinine 0.61 Glucose Level 117 # Calcium Level 9.7 Bedside Glucose 99 110 128 Test 07/13/17 07:58 07/13/17 09:34 07/13/17 10:10 07/13/17 11:01 Bedside Glucose 150 220 270 H 299 H Test 07/13/17 11:55 07/13/17 12:06 07/13/17 13:01 07/13/17 13:16 Bedside Glucose 274 H 255 H Sodium Level 142 142 Potassium Level 3.1 L 2.8 *L Chloride Level 112 H 114 H Carbon Dioxide Level 19 L 17 L Anion Gap 14 14 Blood Urea Nitrogen < 2 L < 2 L Creatinine 0.65 0.58 Glucose Level 270 #H 265 H Calcium Level 9.5 9.3 Test 07/13/17 14:26 07/13/17 16:17 Bedside Glucose 208 203 Medications Medications Current Medications Ondansetron HCl (Zofran Inj) 4 mg Q6H PRN IV NAUSEA AND/OR VOMITING Last administered on 07/12/17 09:48; Admin Dose 4 MG; Start 07/12/17 at 07:00 Acetaminophen (Tylenol Liquid) 650 mg Q6H PRN PO PAIN LEVEL 1-3 OR FEVER; Start 07/12/17 at 07:00 Morphine Sulfate (morphine) 2 mg Q4H PRN IV PAIN LEVEL 7-10; Start 07/12/17 at 07:00 Pantoprazole 40 mg 40 mg DAILY@06 IV Last administered on 07/13/17 06:04; Admin Dose 40 MG; Start 07/12/17 at 07:00 Sodium Chloride (NS) 1,000 ml @ 150 mls/hr Q6H40M IV Last administered on 16:00; Admin Dose 150 MLS/HR; Start 07/12/17 at 10:30; Status Future Hold Insulin Glargine (Lantus) 14 unit DAILY@20 SC Last administered on 07/12/17 21: 02; Admin Dose 14 UNIT; Start 07/12/17 at 20:00 Miscellaneous Information 1 ea NOTE XX ; Start 07/12/17 at 18:00 Glucose (Glutose) 15 gm Q15M PRN PO DECREASED GLUCOSE; Start 07/12/17 at 18:00 Glucose (Glutose) 22.5 gm Q15M PRN PO DECREASED GLUCOSE; Start 07/12/17 at 18:00 Dextrose (D50w Syringe) 25 ml Q15M PRN IV DECREASED GLUCOSE; Start 07/12/17 at 18:00 Dextrose (D50w Syringe) 50 ml Q15M PRN IV DECREASED GLUCOSE; Start 07/12/17 at 18:00 Glucagon (Glucagen) 1 mg Q15M PRN IM DECREASED GLUCOSE; Start 07/12/17 at 18:00 Glucose (Glutose) 15 gm Q15M PRN BUCCAL DECREASED GLUCOSE; Start 07/12/17 at 18: 00 Diagnostic Test (Pha) 1 ea 1 ea 02 XX ; Start 07/14/17 at 02:00 Ceftriaxone Sodium (Rocephin) 50 ml @ 100 mls/hr Q24H IVPB ; Start 07/13/17 at 17:30 Heparin Sodium (Porcine) (Heparin (5000 Units/0.5 ml)) 5,000 unit BID SC ; Start 07/13/17 at 21:00 HANNAH COX MD Jul 13, 2017 16:58
[2017-07-13] MEDS ORDERED: INSULIN ASPART [NOVOLOG] 3 ML PEN SC SCH (17:35)
[2017-07-13 20:05] LABS: ANION GAP 15 (8-16); BLOOD UREA NITROGEN < 2 mg/dl (7-20); CALCIUM 9.1 mg/dl (8.4-10.2); CARBON DIOXIDE 18 mmol/L (21-31); CHLORIDE 106 mmol/L (97-110); CREATININE 0.66 mg/dl (0.44-1.00); GLUCOSE 330 mg/dl (70-220); POTASSIUM 3.1 mmol/L (3.5-5.1); SODIUM 136 mmol/L (135-144)
[2017-07-13] MEDS: CEFTRIAXONE 1 GM/50 ML (PMX) 50 ML IVPB SCH (20:14)
[2017-07-13] MEDS: INSULIN GLARGINE [LANtus] 3 ML PEN SC SCH (20:15)
[2017-07-13] MEDS ORDERED: HEPARIN 5,000 UNIT/0.5 ML VIAL SC SCH (21:00)
[2017-07-13] MEDS ORDERED: POTASSIUM CHLORIDE 250 ML IVPB SCH (21:30)
[2017-07-13] MEDS ORDERED: POTASSIUM CHLORIDE (SR) 20 MEQ TAB PO ONE (22:30)
[2017-07-14] VITALS (8 sets, daily range): BP systolic 100–132; BP diastolic 59–98; PULSE 81–101; RESP 14–23
[2017-07-14] MEDS ORDERED: ACCU-CHEK XX SCH ×2 (02:00)
[2017-07-14] MEDS: PANTOPRAZOLE (EC) 40 MG TAB PO SCH (06:04)
[2017-07-14] MEDS: INSULIN ASPART [NOVOLOG] 3 ML PEN SC SCH ×6 (07:45→21:07)
[2017-07-14 08:22] LABS: BASOPHILS % 0.5 % (0.0-2.0); EOSINOPHILS # 0.2 10^3/ul (0.0-0.5); EOSINOPHILS % 2.4 % (0.0-7.0); HEMATOCRIT 34.7 % (37.0-47.0); HEMOGLOBIN 12.3 g/dl (12.0-16.0); LYMPHOCYTES # 3.1 10^3/ul (0.8-2.9); LYMPHOCYTES % 38.8 % (15.0-51.0); MEAN CORPUSCULAR HEMOGLOBIN 29.2 pg (29.0-33.0); MEAN CORPUSCULAR HGB CONC 35.4 g/dl (32.0-37.0); MEAN CORPUSCULAR VOLUME 82.4 fl (82.0-101.0); MEAN PLATELET VOLUME 10.6 fl (7.4-10.4); MONOCYTE # 1.1 10^3/ul (0.3-0.9); MONOCYTES % 13.8 % (0.0-11.0); NEUTROPHILS % 43.7 % (39.0-77.0); PLATELET COUNT 274 10^3/UL (140-415); RED BLOOD COUNT 4.21 10^6/ul (4.20-5.40); RED CELL DISTRIBUTION WIDTH 15.6 % (11.5-14.5); WHITE BLOOD COUNT 7.9 10^3/ul (4.8-10.8)
[2017-07-14 08:40] LABS: CALCIUM 9.1 mg/dl (8.4-10.2); CREATININE 0.64 mg/dl (0.44-1.00)
[2017-07-14] MEDS ORDERED: POTASSIUM CHLORIDE (SR) 20 MEQ TAB PO STA (13:51)
--- NOTE | 2017-07-14 16:34 | PN ---
Date/Time of Note Date/Time of Note DATE: 07/14/17 TIME: 16:31 Assessment/Plan VTE Prophylaxis VTE Prophylaxis Intervention: ambulation Lines/Catheters IV [facility] [place] [facility] Urinary Cath still in place: No Assessment/Plan Chief Complaint/Hosp Course 1. Diabetic ketoacidosis. Status post insulin drip. Hemoglobin A1c out of reportable range as per [facility] standards. Sample has been sent out. Being followed by endocrinology. On insulin regimen as per endocrinology. 2. Diabetes mellitus. Newly diagnosed, most probably type I as per endocrinology. Management as per endocrinology. Diabetes education consult and dietary consult ordered. 3. UTI. Continue antimicrobials. 4. Fluids, electrolytes, and nutrition. Carbohydrate controlled diet. 5. DVT prophylaxis. Ambulation. 6. Plan. Continue current management. Await clearance from endocrinology before discharge. Case discussed with Dr. Lindsay. Problems: Subjective 24 Hr Interval Summary Free Text/Dictation Denies any complaints. Blood sugars continue to run high. Exam/Review of Systems Vital Signs Vitals Vital Signs Date Time Temp Pulse Resp B/P Pulse Ox O2 Delivery O2 Flow Rate FiO2 07/14/17 15:18 98.0 87 18 123/69 07/14/17 07:53 100 Room Air Intake and Output 07/13/17 07/13/17 07/14/17 15:00 23:00 07:00 Intake Total 231.8 ml 400 ml 150 ml Balance 231.8 ml 400 ml 150 ml Exam General: Adequately build 27 year-old female lying in bed in no apparent distress. HEENT: Normocephalic, atraumatic. Eyes: Anicteric sclerae, conjunctivae clear. ENT: Nasal septum midline, oral mucosa moist. Neck supple, no JVD noticed. Respiratory: Bilaterally clear breath sounds. No use of accessory muscles of respiration. No adventitious breath sounds. Cardiovascular: S1, S2 heard. No murmurs or gallops. Abdomen: Soft, nontender, and nondistended. Bowel sounds positive in all 4 quadrants. Genitourinary: Deferred. Extremities: No cyanosis, no clubbing, no edema. Peripheral pulses palpable. Neurologic: Cranial nerves II through XII grossly intact. The patient is awake, alert, and oriented. Skin: Normal skin turgor. No skin rashes. Results Result Diagram: 07/14/17 0656 07/14/17 0656 Results 24 hrs Laboratory Tests Test 07/13/17 18:35 07/13/17 19:27 07/13/17 19:59 07/13/17 21:09 Bedside Glucose 341 H 296 H 311 H Sodium Level 136 Potassium Level 3.1 L Chloride Level 106 Carbon Dioxide Level 18 L Anion Gap 15 Blood Urea Nitrogen < 2 L Creatinine 0.66 Glucose Level 330 H Calcium Level 9.1 Test 07/14/17 06:56 07/14/17 07:29 07/14/17 11:33 07/14/17 12:25 White Blood Count 7.9 # Red Blood Count 4.21 Hemoglobin 12.3 Hematocrit 34.7 L Mean Corpuscular Volume 82.4 Mean Corpuscular Hemoglobin 29.2 Mean Corpuscular Hemoglobin Concent 35.4 Red Cell Distribution Width 15.6 H Platelet Count 274 Mean Platelet Volume 10.6 H Neutrophils % 43.7 Lymphocytes % 38.8 Monocytes % 13.8 H Eosinophils % 2.4 Basophils % 0.5 Nucleated Red Blood Cells % 0.0 Neutrophils # (Manual) 3.5 Lymphocytes # 3.1 H Monocytes # 1.1 H Eosinophils # 0.2 Basophils # 0.0 Nucleated Red Blood Cells # 0.0 Sodium Level 137 Potassium Level 3.0 L Chloride Level 104 Carbon Dioxide Level 21 Anion Gap 15 Blood Urea Nitrogen 3 L Creatinine 0.64 Glucose Level 286 H Calcium Level 9.1 Bedside Glucose 294 H 279 H Lab Scanned Report REFERENCE LAB Test 07/14/17 14:10 Magnesium Level 1.6 L Medications Medications Current Medications Ondansetron HCl (Zofran Inj) 4 mg Q6H PRN IV NAUSEA AND/OR VOMITING Last administered on 07/12/17t 09:48; Admin Dose 4 MG; Start 07/12/17 at 07:00 Acetaminophen (Tylenol Liquid) 650 mg Q6H PRN PO PAIN LEVEL 1-3 OR FEVER; Start 07/12/17 at 07:00 Morphine Sulfate (morphine) 2 mg Q4H PRN IV PAIN LEVEL 7-10; Start 07/12/17 at 07:00 Miscellaneous Information 1 ea NOTE XX ; Start 07/12/17 at 18:00 Glucose (Glutose) 15 gm Q15M PRN PO DECREASED GLUCOSE; Start 07/12/17 at 18:00 Glucose (Glutose) 22.5 gm Q15M PRN PO DECREASED GLUCOSE; Start 07/12/17 at 18:00 Dextrose (D50w Syringe) 25 ml Q15M PRN IV DECREASED GLUCOSE; Start 07/12/17 at 18:00 Dextrose (D50w Syringe) 50 ml Q15M PRN IV DECREASED GLUCOSE; Start 07/12/17 at 18:00 Glucagon (Glucagen) 1 mg Q15M PRN IM DECREASED GLUCOSE; Start 07/12/17 at 18:00 Glucose 15 gm 15 gm Q15M PRN BUCCAL DECREASED GLUCOSE; Start 07/12/17 at 18:00 Ceftriaxone Sodium (Rocephin) 50 ml @ 100 mls/hr Q24H IVPB Last administered on 07/13/17 20:14; Admin Dose 100 MLS/HR; Start 07/13/17 at 17:30 Pantoprazole (Protonix Tab) 40 mg DAILY@06 PO Last administered on 07/14/17 06: 04; Admin Dose 40 MG; Start 07/14/17 at 06:00 Insulin Glargine (Lantus) 24 unit DAILY@20 SC ; Start 07/14/17 at 20:00 IRINA ROY NP Jul 14, 2017 16:34
[2017-07-14] MEDS ORDERED: MAGNESIUM SULFATE 2 GM/50 ML 50 ML IVPB ONE (17:00)
[2017-07-14] MEDS: CEFTRIAXONE 1 GM/50 ML (PMX) 50 ML IVPB SCH (17:38)
[2017-07-14] MEDS ORDERED: INSULIN GLARGINE [LANtus] 3 ML PEN SC SCH (20:00)
--- NOTE | 2017-07-14 23:33 | CONS ---
Date/Time of Note Date/Time of Note DATE: 07/14/17 TIME: 23:28 Assessment/Plan Assessment/Plan Problems: (1) New onset type 1 diabetes mellitus, uncontrolled Status: Acute Comment: Still with suboptimal control. Appears to need more of both basal and bolus insulin. (2) DKA (diabetic ketoacidoses) Status: Resolved Qualifiers: Diabetes mellitus type: type 1 Additional Assessment/Plan Increase Basal insulin from 14 units to 24 units daily. Will monitor the trend tomorrow and then further increase prandial insulin. Instructed Nurse to have patient self inject. Cont'd Hospitalization Reason: Still needs more diabetes/insulin adjustments and training Consultation Date/Type/Reason Admit Date/Time Jul 12, 2017 at 06:05 Initial Consult Date 07/12/17 Type of Consultation: Endocrinology Referring Provider: NICK ARAUJO MD 24 HR Interval Summary Free Text/Dictation Patient feels she needs more practice with self injecting. Otherwise feels okay. Constitutional: improved Exam/Review of Systems Vital Signs Vitals Vital Signs Date Time Temp Pulse Resp B/P Pulse Ox O2 Delivery O2 Flow Rate FiO2 07/14/17 19:15 98.0 103 18 103/59 97 07/14/17 07:53 Room Air Intake and Output 07/13/17 07/13/17 07/14/17 15:00 23:00 07:00 Intake Total 231.8 ml 400 ml 150 ml Balance 231.8 ml 400 ml 150 ml Exam Constitutional: alert, oriented, well developed Psych: no complaints Head: normocephalic Eyes: EOMI, PERRL, nl conjunctiva ENMT: mucosa pink and moist Neck: non-tender, supple Respiratory: clear to auscultation, normal air movement Cardiovascular: regular rate and rhythm Gastrointestinal: soft Musculoskeletal: nl extremities to inspection Extremities: normal pulses Neurological: nl mental status, nl speech, nl strength Skin: nl turgor Results POC glucose reviewed Result Diagram: 07/14/17 0656 07/14/17 0656 Results 24 hrs Laboratory Tests Test 07/14/17 06:56 07/14/17 07:29 07/14/17 11:33 07/14/17 12:25 White Blood Count 7.9 # Red Blood Count 4.21 Hemoglobin 12.3 Hematocrit 34.7 L Mean Corpuscular Volume 82.4 Mean Corpuscular Hemoglobin 29.2 Mean Corpuscular Hemoglobin Concent 35.4 Red Cell Distribution Width 15.6 H Platelet Count 274 Mean Platelet Volume 10.6 H Neutrophils % 43.7 Lymphocytes % 38.8 Monocytes % 13.8 H Eosinophils % 2.4 Basophils % 0.5 Nucleated Red Blood Cells % 0.0 Neutrophils # (Manual) 3.5 Lymphocytes # 3.1 H Monocytes # 1.1 H Eosinophils # 0.2 Basophils # 0.0 Nucleated Red Blood Cells # 0.0 Sodium Level 137 Potassium Level 3.0 L Chloride Level 104 Carbon Dioxide Level 21 Anion Gap 15 Blood Urea Nitrogen 3 L Creatinine 0.64 Glucose Level 286 H Calcium Level 9.1 Bedside Glucose 294 H 279 H Lab Scanned Report REFERENCE LAB Test 07/14/17 14:10 07/14/17 17:57 07/14/17 21:02 Magnesium Level 1.6 L Bedside Glucose 254 H 318 H Medications Medications Current Medications Ondansetron HCl (Zofran Inj) 4 mg Q6H PRN IV NAUSEA AND/OR VOMITING Last administered on 07/12/17t 09:48; Admin Dose 4 MG; Start 07/12/17 at 07:00 Acetaminophen (Tylenol Liquid) 650 mg Q6H PRN PO PAIN LEVEL 1-3 OR FEVER; Start 07/12/17 at 07:00 Morphine Sulfate (morphine) 2 mg Q4H PRN IV PAIN LEVEL 7-10; Start 07/12/17 at 07:00 Miscellaneous Information 1 ea NOTE XX ; Start 07/12/17 at 18:00 Glucose (Glutose) 15 gm Q15M PRN PO DECREASED GLUCOSE; Start 07/12/17 at 18:00 Glucose (Glutose) 22.5 gm Q15M PRN PO DECREASED GLUCOSE; Start 07/12/17 at 18:00 Dextrose (D50w Syringe) 25 ml Q15M PRN IV DECREASED GLUCOSE; Start 07/12/17 at 18:00 Dextrose (D50w Syringe) 50 ml Q15M PRN IV DECREASED GLUCOSE; Start 07/12/17 at 18:00 Glucagon (Glucagen) 1 mg Q15M PRN IM DECREASED GLUCOSE; Start 07/12/17 at 18:00 Glucose 15 gm 15 gm Q15M PRN BUCCAL DECREASED GLUCOSE; Start 07/12/17 at 18:00 Ceftriaxone Sodium (Rocephin) 50 ml @ 100 mls/hr Q24H IVPB Last administered on 07/14/17 17:38; Admin Dose 100 MLS/HR; Start 07/13/17 at 17:30 Pantoprazole (Protonix Tab) 40 mg DAILY@06 PO Last administered on 07/14/17 06: 04; Admin Dose 40 MG; Start 07/14/17 at 06:00 Insulin Glargine (Lantus) 24 unit DAILY@20 SC Last administered on 07/14/17 21: 06; Admin Dose 24 UNIT; Start 07/14/17 at 20:00 MIKE KO MD Jul 14, 2017 23:33
[2017-07-15 02:15] VITALS: BP 101/63; RESP 18
[2017-07-15 05:28] LABS: BASOPHIL # 0.1 10^3/ul (0.0-0.1); BASOPHILS % 0.6 % (0.0-2.0); EOSINOPHILS # 0.2 10^3/ul (0.0-0.5); EOSINOPHILS % 2.6 % (0.0-7.0); HEMOGLOBIN 11.8 g/dl (12.0-16.0); MEAN CORPUSCULAR HEMOGLOBIN 28.9 pg (29.0-33.0); MEAN CORPUSCULAR HGB CONC 34.7 g/dl (32.0-37.0); MEAN CORPUSCULAR VOLUME 83.1 fl (82.0-101.0); MEAN PLATELET VOLUME 10.5 fl (7.4-10.4); MONOCYTE # 1.3 10^3/ul (0.3-0.9); MONOCYTES % 16.9 % (0.0-11.0); NEUTROPHILS % 39.6 % (39.0-77.0); PLATELET COUNT 290 10^3/UL (140-415); RED BLOOD COUNT 4.09 10^6/ul (4.20-5.40); RED CELL DISTRIBUTION WIDTH 15.4 % (11.5-14.5); WHITE BLOOD COUNT 7.8 10^3/ul (4.8-10.8)
[2017-07-15 06:02] LABS: CHOL/HDL RATIO 4.2 RATIO; MAGNESIUM 2.2 mg/dl (1.7-2.5)
[2017-07-15] MEDS: PANTOPRAZOLE (EC) 40 MG TAB PO SCH (06:07)
[2017-07-15 06:13] LABS: ALBUMIN 3.3 g/dl (3.3-4.9); ALBUMIN/GLOBULIN RATIO 1.22; BILIRUBIN,INDIRECT 0.2 mg/dl (0-1.1); BILIRUBIN,TOTAL 0.2 mg/dl (0.2-1.3); CALCIUM 8.8 mg/dl (8.4-10.2); CREATININE 0.61 mg/dl (0.44-1.00); POTASSIUM 3.1 mmol/L (3.5-5.1)
[2017-07-15] MEDS: POTASSIUM CHLORIDE (SR) 20 MEQ TAB PO SCH ×3 (07:06→20:34)
[2017-07-15 08:05] VITALS: BP 101/55; RESP 20
[2017-07-15] MEDS: INSULIN ASPART [NOVOLOG] 3 ML PEN SC SCH ×7 (08:55→20:31)
--- NOTE | 2017-07-15 09:46 | PN ---
Date/Time of Note Date/Time of Note DATE: 07/15/17 TIME: 09:44 Assessment/Plan VTE Prophylaxis VTE Prophylaxis Intervention: ambulation Lines/Catheters IV Catheter Type (from [place]): Peripheral IV Urinary Cath still in place: No Assessment/Plan Chief Complaint/Hosp Course 1. Diabetic ketoacidosis. Status post insulin drip. Hemoglobin A1c out of reportable range as per [facility] standards. Sample has been sent out. Being followed by endocrinology. On insulin regimen as per endocrinology. 2. Diabetes mellitus. Newly diagnosed, most probably type I as per endocrinology. Management as per endocrinology. Diabetes education consult and dietary consult ordered. 3. UTI. Continue antimicrobials. 4. Fluids, electrolytes, and nutrition. Carbohydrate controlled diet. 5. DVT prophylaxis. Ambulation. 6. Plan. Continue current management. Await clearance from endocrinology before discharge. Problems: Subjective 24 Hr Interval Summary Free Text/Dictation Blood sugars running high. Complains of feeling nervous about insulin injections. Exam/Review of Systems Vital Signs Vitals Vital Signs Date Time Temp Pulse Resp B/P Pulse Ox O2 Delivery O2 Flow Rate FiO2 07/15/17 08:05 97.8 85 20 101/55 98 07/14/17 07:53 Room Air Intake and Output 07/14/17 07/14/17 07/15/17 15:00 23:00 07:00 Intake Total 50 ml 1890 ml Balance 50 ml 1890 ml Exam General: Adequately build 27 year-old female lying in bed in no apparent distress. HEENT: Normocephalic, atraumatic. Eyes: Anicteric sclerae, conjunctivae clear. ENT: Nasal septum midline, oral mucosa moist. Neck supple, no JVD noticed. Respiratory: Bilaterally clear breath sounds. No use of accessory muscles of respiration. No adventitious breath sounds. Cardiovascular: S1, S2 heard. No murmurs or gallops. Abdomen: Soft, nontender, and nondistended. Bowel sounds positive in all 4 quadrants. Genitourinary: Deferred. Extremities: No cyanosis, no clubbing, no edema. Peripheral pulses palpable. Neurologic: Cranial nerves II through XII grossly intact. The patient is awake, alert, and oriented. Skin: Normal skin turgor. No skin rashes. Results Result Diagram: 07/15/1742007/15/17420 Results 24 hrs Laboratory Tests Test 07/14/17 11:33 07/14/17 12:25 07/14/17 14:10 07/14/17 17:57 Bedside Glucose 279 H 254 H Lab Scanned Report REFERENCE LAB Magnesium Level 1.6 L Test 07/14/17 21:02 07/15/17 04:21 07/15/17 04:22 07/15/17 08:47 Bedside Glucose 318 H 232 H White Blood Count 7.8 Red Blood Count 4.09 L Hemoglobin 11.8 L Hematocrit 34.0 L Mean Corpuscular Volume 83.1 Mean Corpuscular Hemoglobin 28.9 L Mean Corpuscular Hemoglobin Concent 34.7 Red Cell Distribution Width 15.4 H Platelet Count 290 Mean Platelet Volume 10.5 H Neutrophils % 39.6 Lymphocytes % 39.0 Monocytes % 16.9 H Eosinophils % 2.6 Basophils % 0.6 Nucleated Red Blood Cells % 0.0 Neutrophils # (Manual) 3.1 Lymphocytes # 3.0 H Monocytes # 1.3 H Eosinophils # 0.2 Basophils # 0.1 Nucleated Red Blood Cells # 0.0 Sodium Level 137 Potassium Level 3.1 L Chloride Level 101 Carbon Dioxide Level 25 Anion Gap 14 Blood Urea Nitrogen 16 # Creatinine 0.61 Glucose Level 277 H Calcium Level 8.8 Total Bilirubin 0.2 Direct Bilirubin 0.00 Indirect Bilirubin 0.2 Aspartate Amino Transf (AST/SGOT) 21 Alanine Aminotransferase (ALT/SGPT) 44 Alkaline Phosphatase 113 Total Protein 6.0 L Albumin 3.3 Globulin 2.70 Albumin/Globulin Ratio 1.22 Phosphorus Level 4.0 Magnesium Level 2.2 Triglycerides Level 118 Cholesterol Level 169 LDL Cholesterol, Calculated 105 HDL Cholesterol 40 Cholesterol/HDL Ratio 4.2 Medications Medications Current Medications Ondansetron HCl (Zofran Inj) 4 mg Q6H PRN IV NAUSEA AND/OR VOMITING Last administered on 07/12/17t 09:48; Admin Dose 4 MG; Start 07/12/17 at 07:00 Acetaminophen (Tylenol Liquid) 650 mg Q6H PRN PO PAIN LEVEL 1-3 OR FEVER; Start 07/12/17 at 07:00 Morphine Sulfate (morphine) 2 mg Q4H PRN IV PAIN LEVEL 7-10; Start 07/12/17 at 07:00 Miscellaneous Information 1 ea NOTE XX ; Start 07/12/17 at 18:00 Glucose (Glutose) 15 gm Q15M PRN PO DECREASED GLUCOSE; Start 07/12/17 at 18:00 Glucose (Glutose) 22.5 gm Q15M PRN PO DECREASED GLUCOSE; Start 07/12/17 at 18:00 Dextrose (D50w Syringe) 25 ml Q15M PRN IV DECREASED GLUCOSE; Start 07/12/17 at 18:00 Dextrose (D50w Syringe) 50 ml Q15M PRN IV DECREASED GLUCOSE; Start 07/12/17 at 18:00 Glucagon (Glucagen) 1 mg Q15M PRN IM DECREASED GLUCOSE; Start 07/12/17 at 18:00 Glucose 15 gm 15 gm Q15M PRN BUCCAL DECREASED GLUCOSE; Start 07/12/17 at 18:00 Ceftriaxone Sodium (Rocephin) 50 ml @ 100 mls/hr Q24H IVPB Last administered on 07/14/17 17:38; Admin Dose 100 MLS/HR; Start 07/13/17 at 17:30 Pantoprazole (Protonix Tab) 40 mg DAILY@06 PO Last administered on 07/15/17 06 :07; Admin Dose 40 MG; Start 07/14/17 at 06:00 Insulin Glargine (Lantus) 24 unit DAILY@20 SC Last administered on 07/14/17 21: 06; Admin Dose 24 UNIT; Start 07/14/17 at 20:00 Potassium Chloride (Klor-Con 20) 40 meq BID PO Last administered on 07/15/17 08:49; Admin Dose 40 MEQ; Start 07/15/17 at 07:00 IRINA ROY NP Jul 15, 2017 09:46 IRINA ROY NP Jul 15, 2017 09:46
[2017-07-15 14:00] VITALS: BP 106/62; RESP 20
--- NOTE | 2017-07-15 15:36 | CONS ---
Date/Time of Note Date/Time of Note DATE: 07/15/17 TIME: 15:27 Assessment/Plan Assessment/Plan Problems: (1) New onset type 1 diabetes mellitus, uncontrolled Status: Acute Comment: Suboptimal control. Requiring more insulin coverage. Antibody profile still pending. (2) DKA (diabetic ketoacidoses) Status: Resolved Qualifiers: Diabetes mellitus type: type 1 Additional Assessment/Plan Increase basal insulin to 30 units and prandial insulin up to 8 units AC. Consultation Date/Type/Reason Admit Date/Time Jul 12, 2017 at 06:05 Initial Consult Date 07/12/17 Type of Consultation: Endocrinology Referring Provider: NICK ARAUJO MD 24 HR Interval Summary Free Text/Dictation Patient starting to feel more comfortable injecting insulin. Motivated to learn about diabetes Exam/Review of Systems Vital Signs Vitals Vital Signs Date Time Temp Pulse Resp B/P Pulse Ox O2 Delivery O2 Flow Rate FiO2 07/15/17 08:05 97.8 85 20 101/55 98 07/14/17 07:53 Room Air Intake and Output 07/14/17 07/14/17 07/15/17 15:00 23:00 07:00 Intake Total 50 ml 1890 ml Balance 50 ml 1890 ml Exam Constitutional: alert, oriented, well developed Neck: supple Respiratory: clear to auscultation Cardiovascular: regular rate and rhythm Gastrointestinal: soft Musculoskeletal: nl extremities to inspection Skin: other (tattoos) Results POC glucose and labs reviewed Result Diagram: 07/15/17 0421 07/15/17 0421 Results 24 hrs Laboratory Tests Test 07/14/17 17:57 07/14/17 21:02 07/15/17 04:21 07/15/17 04:22 Bedside Glucose 254 H 318 H White Blood Count 7.8 Red Blood Count 4.09 L Hemoglobin 11.8 L Hematocrit 34.0 L Mean Corpuscular Volume 83.1 Mean Corpuscular Hemoglobin 28.9 L Mean Corpuscular Hemoglobin Concent 34.7 Red Cell Distribution Width 15.4 H Platelet Count 290 Mean Platelet Volume 10.5 H Neutrophils % 39.6 Lymphocytes % 39.0 Monocytes % 16.9 H Eosinophils % 2.6 Basophils % 0.6 Nucleated Red Blood Cells % 0.0 Neutrophils # (Manual) 3.1 Lymphocytes # 3.0 H Monocytes # 1.3 H Eosinophils # 0.2 Basophils # 0.1 Nucleated Red Blood Cells # 0.0 Sodium Level 137 Potassium Level 3.1 L Chloride Level 101 Carbon Dioxide Level 25 Anion Gap 14 Blood Urea Nitrogen 16 # Creatinine 0.61 Glucose Level 277 H Calcium Level 8.8 Total Bilirubin 0.2 Direct Bilirubin 0.00 Indirect Bilirubin 0.2 Aspartate Amino Transf (AST/SGOT) 21 Alanine Aminotransferase (ALT/SGPT) 44 Alkaline Phosphatase 113 Total Protein 6.0 L Albumin 3.3 Globulin 2.70 Albumin/Globulin Ratio 1.22 Phosphorus Level 4.0 Magnesium Level 2.2 Triglycerides Level 118 Cholesterol Level 169 LDL Cholesterol, Calculated 105 HDL Cholesterol 40 Cholesterol/HDL Ratio 4.2 Test 07/15/17 08:47 07/15/17 12:37 Bedside Glucose 232 H 198 Medications Medications Current Medications Ondansetron HCl (Zofran Inj) 4 mg Q6H PRN IV NAUSEA AND/OR VOMITING Last administered on 07/12/17 09:48; Admin Dose 4 MG; Start 07/12/17 at 07:00 Acetaminophen (Tylenol Liquid) 650 mg Q6H PRN PO PAIN LEVEL 1-3 OR FEVER; Start 07/12/17 at 07:00 Morphine Sulfate (morphine) 2 mg Q4H PRN IV PAIN LEVEL 7-10; Start 07/12/17 at 07:00 Miscellaneous Information 1 ea NOTE XX ; Start 07/12/17 at 18:00 Glucose (Glutose) 15 gm Q15M PRN PO DECREASED GLUCOSE; Start 07/12/17 at 18:00 Glucose (Glutose) 22.5 gm Q15M PRN PO DECREASED GLUCOSE; Start 07/12/17 at 18:00 Dextrose (D50w Syringe) 25 ml Q15M PRN IV DECREASED GLUCOSE; Start 07/12/17 at 18:00 Dextrose (D50w Syringe) 50 ml Q15M PRN IV DECREASED GLUCOSE; Start 07/12/17 at 18:00 Glucagon (Glucagen) 1 mg Q15M PRN IM DECREASED GLUCOSE; Start 07/12/17 at 18:00 Glucose 15 gm 15 gm Q15M PRN BUCCAL DECREASED GLUCOSE; Start 07/12/17 at 18:00 Ceftriaxone Sodium (Rocephin) 50 ml @ 100 mls/hr Q24H IVPB Last administered on 07/14/17 17:38; Admin Dose 100 MLS/HR; Start 07/13/17 at 17:30 Pantoprazole (Protonix Tab) 40 mg DAILY@06 PO Last administered on 07/15/17 06 :07; Admin Dose 40 MG; Start 07/14/17 at 06:00 Potassium Chloride (Klor-Con 20) 40 meq BID PO Last administered on 07/15/17 08:49; Admin Dose 40 MEQ; Start 07/15/17 at 07:00 Insulin Glargine (Lantus) 30 unit DAILY@20 SC ; Start 07/15/17 at 20:00 MIKE KO MD Jul 15, 2017 15:36
[2017-07-15] MEDS: CEFTRIAXONE 1 GM/50 ML (PMX) 50 ML IVPB SCH (18:12)
[2017-07-15 19:07] VITALS: BP 99/60; RESP 16
[2017-07-15] MEDS ORDERED: INSULIN GLARGINE [LANtus] 3 ML PEN SC SCH (20:00)
[2017-07-16 01:58] VITALS: BP 98/58; RESP 16
[2017-07-16] MEDS: PANTOPRAZOLE (EC) 40 MG TAB PO SCH (05:04)
[2017-07-16 05:48] LABS: BASOPHIL # 0.1 10^3/ul (0.0-0.1); BASOPHILS % 0.7 % (0.0-2.0); EOSINOPHILS # 0.2 10^3/ul (0.0-0.5); EOSINOPHILS % 2.4 % (0.0-7.0); HEMATOCRIT 32.8 % (37.0-47.0); HEMOGLOBIN 11.4 g/dl (12.0-16.0); LYMPHOCYTES # 3.1 10^3/ul (0.8-2.9); LYMPHOCYTES % 41.6 % (15.0-51.0); MEAN CORPUSCULAR HEMOGLOBIN 29.2 pg (29.0-33.0); MEAN CORPUSCULAR HGB CONC 34.8 g/dl (32.0-37.0); MEAN CORPUSCULAR VOLUME 84.1 fl (82.0-101.0); MEAN PLATELET VOLUME 10.3 fl (7.4-10.4); MONOCYTE # 1.2 10^3/ul (0.3-0.9); MONOCYTES % 15.6 % (0.0-11.0); NEUTROPHILS % 38.5 % (39.0-77.0); PLATELET COUNT 281 10^3/UL (140-415); RED CELL DISTRIBUTION WIDTH 15.7 % (11.5-14.5); WHITE BLOOD COUNT 7.4 10^3/ul (4.8-10.8)
[2017-07-16 06:06] LABS: MAGNESIUM 1.9 mg/dl (1.7-2.5); PHOSPHORUS 3.5 mg/dl (2.5-4.9)
[2017-07-16 06:14] LABS: CALCIUM 8.9 mg/dl (8.4-10.2); CREATININE 0.58 mg/dl (0.44-1.00); POTASSIUM 3.2 mmol/L (3.5-5.1)
[2017-07-16] MEDS ORDERED: POTASSIUM CHLORIDE 250 ML IVPB ONE (07:00)
[2017-07-16 07:24] VITALS: BP 96/56; RESP 18
[2017-07-16] MEDS ORDERED: MAGNESIUM SULFATE 1 GM/D5W 100 ML IVPB ONE (08:00)
[2017-07-16] MEDS: POTASSIUM CHLORIDE (SR) 20 MEQ TAB PO SCH ×2 (08:39→20:13)
[2017-07-16] MEDS: INSULIN ASPART [NOVOLOG] 3 ML PEN SC SCH ×7 (09:00→20:15)
[2017-07-16] MEDS ORDERED: POTASSIUM CHLORIDE (SR) 20 MEQ TAB PO STA (13:26)
--- NOTE | 2017-07-16 14:05 | PN ---
Date/Time of Note Date/Time of Note DATE: 07/16/17 TIME: 13:59 Assessment/Plan VTE Prophylaxis VTE Prophylaxis Intervention: SCD's Lines/Catheters IV Catheter Type (from [facility]): [facility] Urinary Cath still in place: No Assessment/Plan Chief Complaint/Hosp Course Assessment and plan 1. DKA. patient s/p insulin drip. continue insulin regimen per assistant finance director . Improving at present. 2. Diabetes mellitus. primary special educator did follow the patient. Follow-up on insulin antibodies. 3. Urinary tract infection. Noted with strep agalactiae in urine. Continue on antibiotics. Stable at present. 4. Hypokalemia. Monitor and replete as needed. DISPO/PLAN: Continue insulin regimen and antibiotics. Still noted with some high blood glucose. Up with photographic aide recommendations. Discussed plan of care with Dr. Sy Problems: Subjective 24 Hr Interval Summary Free Text/Dictation sitting in bed. comfortable at present Exam/Review of Systems Vital Signs Vitals Vital Signs Date Time Temp Pulse Resp B/P Pulse Ox O2 Delivery O2 Flow Rate FiO2 07/16/17 07:24 98.1 81 18 96/56 99 07/14/17 07:53 Room Air Intake and Output 07/15/17 07/15/17 07/16/17 15:00 23:00 07:00 Intake Total 850 ml 800 ml Balance 850 ml 800 ml Exam Constitutional: alert, oriented Psych: nl mood/affect Head: normocephalic Respiratory: clear to auscultation Cardiovascular: regular rate and rhythm Gastrointestinal: non-tender, soft Musculoskeletal: nl extremities to inspection Neurological: LEAD SIMULATION MODELING ENGINEER II-XII intact, nl mental status, nl speech Results Result Diagram: 07/16/17 0448 07/16/17 0448 Results 24 hrs Laboratory Tests Test 07/15/17 17:38 07/15/17 20:26 07/16/17 04:48 07/16/17 08:41 Bedside Glucose 218 231 H 170 White Blood Count 7.4 Red Blood Count 3.90 L Hemoglobin 11.4 L Hematocrit 32.8 L Mean Corpuscular Volume 84.1 Mean Corpuscular Hemoglobin 29.2 Mean Corpuscular Hemoglobin Concent 34.8 Red Cell Distribution Width 15.7 H Platelet Count 281 Mean Platelet Volume 10.3 Neutrophils % 38.5 L Lymphocytes % 41.6 Monocytes % 15.6 H Eosinophils % 2.4 Basophils % 0.7 Nucleated Red Blood Cells % 0.0 Neutrophils # (Manual) 2.8 Lymphocytes # 3.1 H Monocytes # 1.2 H Eosinophils # 0.2 Basophils # 0.1 Nucleated Red Blood Cells # 0.0 Sodium Level 136 Potassium Level 3.2 L Chloride Level 104 Carbon Dioxide Level 26 Anion Gap 9 # Blood Urea Nitrogen 12 Creatinine 0.58 Glucose Level 190 Calcium Level 8.9 Phosphorus Level 3.5 Magnesium Level 1.9 Test 07/16/17 12:46 Bedside Glucose 245 H Medications Medications Current Medications Ondansetron HCl (Zofran Inj) 4 mg Q6H PRN IV NAUSEA AND/OR VOMITING Last administered on 07/12/17 09:48; Admin Dose 4 MG; Start 07/12/17 at 07:00 Acetaminophen (Tylenol Liquid) 650 mg Q6H PRN PO PAIN LEVEL 1-3 OR FEVER; Start 07/12/17 at 07:00 Morphine Sulfate (morphine) 2 mg Q4H PRN IV PAIN LEVEL 7-10; Start 07/12/17 at 07:00 Miscellaneous Information 1 ea NOTE XX ; Start 07/12/17 at 18:00 Glucose (Glutose) 15 gm Q15M PRN PO DECREASED GLUCOSE; Start 07/12/17 at 18:00 Glucose (Glutose) 22.5 gm Q15M PRN PO DECREASED GLUCOSE; Start 07/12/17 at 18:00 Dextrose (D50w Syringe) 25 ml Q15M PRN IV DECREASED GLUCOSE; Start 07/12/17 at 18:00 Dextrose (D50w Syringe) 50 ml Q15M PRN IV DECREASED GLUCOSE; Start 07/12/17 at 18:00 Glucagon (Glucagen) 1 mg Q15M PRN IM DECREASED GLUCOSE; Start 07/12/17 at 18:00 Glucose 15 gm 15 gm Q15M PRN BUCCAL DECREASED GLUCOSE; Start 07/12/17 at 18:00 Ceftriaxone Sodium (Rocephin) 50 ml @ 100 mls/hr Q24H IVPB Last administered on 07/15/17 18:12; Admin Dose 100 MLS/HR; Start 07/13/17 at 17:30 Pantoprazole (Protonix Tab) 40 mg DAILY@06 PO Last administered on 07/16/17 05 :04; Admin Dose 40 MG; Start 07/14/17 at 06:00 Potassium Chloride (Klor-Con 20) 40 meq BID PO Last administered on 07/16/17t 08:39; Admin Dose 40 MEQ; Start 07/15/17 at 07:00 Insulin Glargine (Lantus) 24 unit DAILY@20 SC ; Start 07/16/17 at 20:00 TIMI CALVO Jul 16, 2017 14:05
[2017-07-16 14:30] VITALS: BP 107/63; RESP 18
[2017-07-16 14:46] LABS: CALCIUM 9.5 mg/dl (8.4-10.2); CREATININE 0.66 mg/dl (0.44-1.00); POTASSIUM 3.8 mmol/L (3.5-5.1)
--- NOTE | 2017-07-16 17:59 | CONS ---
Date/Time of Note Date/Time of Note DATE: 07/16/17 TIME: 17:53 Assessment/Plan Assessment/Plan Problems: (1) New onset type 1 diabetes mellitus, uncontrolled Status: Acute Comment: Doing well. Glucose level still not at goal. Increase NovoLog today from 6 q. before meals to 10 q. before meals. Decrease Lantus from 30-24 units. If still not achieving goal glycemic numbers with these insulin doses will increase NovoLog again to 12-14 units depending on the height of the glucose levels. Patient is doing well with her education and is apparently proficient with self-monitoring blood glucose and self dosing of insulin. Patient has been reassured that her vision will return to normal with time and good glycemic control Consultation Date/Type/Reason Admit Date/Time Jul 12, 2017 at 06:05 Initial Consult Date 07/12/17 Type of Consultation: Endocrinology Reason for Consultation DKA Referring Provider: NICK ARAUJO MD 24 HR Interval Summary Constitutional: improved, no complaints Detailed Summary Eyes: visual change (Blurring) Respiratory: no complaints Cardiovascular: no complaints Gastrointestinal: no complaints Genitourinary: no complaints Musculoskeletal: no complaints Neurologic: no complaints Exam/Review of Systems Vital Signs Vitals VS - Last 72 Hours, by Label Date Time Temp Pulse Resp B/P Pulse Ox O2 Delivery O2 Flow Rate FiO2 07/16/17 14:30 98.0 79 18 107/63 97 07/16/17 07:24 98.1 81 18 96/56 99 07/16/17 01:58 99.0 67 16 98/58 100 07/15/17 19:07 98.6 96 16 99/60 100 07/15/17 14:00 98.1 88 20 106/62 97 07/15/17 08:05 97.8 85 20 101/55 98 07/15/17 02:15 98.8 108 18 101/63 97 07/14/17 19:15 98.0 103 18 103/59 97 07/14/17 16:51 97.7 107 20 111/71 99 07/14/17 15:18 98.0 87 18 123/69 07/14/17 07:53 98.0 81 18 132/71 100 Room Air 07/14/17 02:21 98.8 101 18 112/75 100 Room Air 07/14/17 02:00 98 23 113/98 99 Room Air 07/14/17 01:00 95 14 107/76 98 Room Air 07/14/17 00:00 97.8 91 15 100/73 99 Room Air 07/14/17 00:00 96 07/13/17 23:00 92 19 104/74 99 Room Air 07/13/17 22:00 101 17 103/91 98 Room Air 07/13/17 21:00 88 10 106/69 99 Room Air 07/13/17 20:00 93 16 94/64 99 Room Air 07/13/17 20:00 92 07/13/17 19:00 98.4 97 12 104/75 98 Room Air Vital Signs Date Time Temp Pulse Resp B/P Pulse Ox O2 Delivery O2 Flow Rate FiO2 07/16/17 14:30 98.0 79 18 107/63 97 07/14/17 07:53 Room Air Intake and Output 07/15/17 07/15/17 07/16/17 15:00 23:00 07:00 Intake Total 850 ml 800 ml Balance 850 ml 800 ml Exam Constitutional: alert, obese, oriented Psych: nl mood/affect, no complaints Respiratory: clear to auscultation, normal air movement Cardiovascular: nl pulses, regular rate and rhythm, No edema, No murmurs/extra sounds, No rub Gastrointestinal: bowel sounds, nl liver, spleen, non-tender, soft, No mass, No rebound or guarding Musculoskeletal: nl extremities to inspection Extremities: normal pulses, No clubbing, No cyanosis, No edema Neurological: CLAIM CLINICIAN II-XII intact, nl mental status, nl speech, nl strength Additional Comments Bedside Glucose - 72 Hours Test 07/13/17 18:35 07/13/17 19:59 07/13/17 21:09 07/14/17 07:29 Bedside Glucose 341mg/dL (70-220) H 296mg/dL (70-220) H 311mg/dL (70-220) H 294mg/dL (70-220) H Test 07/14/17 11:33 07/14/17 17:57 07/14/17 21:02 07/15/17 08:47 Bedside Glucose 279mg/dL (70-220) H 254mg/dL (70-220) H 318mg/dL (70-220) H 232mg/dL (70-220) H Test 07/15/17 12:37 07/15/17 17:38 07/15/17 20:26 07/16/17 08:41 Bedside Glucose 198mg/dL (70-220) 218mg/dL (70-220) 231mg/dL (70-220) H 170mg/dL (70-220) Test 07/16/17 12:46 Bedside Glucose 245mg/dL (70-220) H Results Result Diagram: 07/16/17 0448 07/16/17 1404 Results 24 hrs Laboratory Tests Test 07/15/17 20:26 07/16/17 04:48 07/16/17 08:41 07/16/17 12:46 Bedside Glucose 231 H 170 245 H White Blood Count 7.4 Red Blood Count 3.90 L Hemoglobin 11.4 L Hematocrit 32.8 L Mean Corpuscular Volume 84.1 Mean Corpuscular Hemoglobin 29.2 Mean Corpuscular Hemoglobin Concent 34.8 Red Cell Distribution Width 15.7 H Platelet Count 281 Mean Platelet Volume 10.3 Neutrophils % 38.5 L Lymphocytes % 41.6 Monocytes % 15.6 H Eosinophils % 2.4 Basophils % 0.7 Nucleated Red Blood Cells % 0.0 Neutrophils # (Manual) 2.8 Lymphocytes # 3.1 H Monocytes # 1.2 H Eosinophils # 0.2 Basophils # 0.1 Nucleated Red Blood Cells # 0.0 Sodium Level 136 Potassium Level 3.2 L Chloride Level 104 Carbon Dioxide Level 26 Anion Gap 9 # Blood Urea Nitrogen 12 Creatinine 0.58 Glucose Level 190 Calcium Level 8.9 Phosphorus Level 3.5 Magnesium Level 1.9 Test 07/16/17 14:04 Sodium Level 136 Potassium Level 3.8 Chloride Level 100 Carbon Dioxide Level 27 Anion Gap 13 Blood Urea Nitrogen 10 Creatinine 0.66 Glucose Level 242 H Calcium Level 9.5 Magnesium Level 1.9 Medications Medications Current Medications Ondansetron HCl (Zofran Inj) 4 mg Q6H PRN IV NAUSEA AND/OR VOMITING Last administered on 07/12/17t 09:48; Admin Dose 4 MG; Start 07/12/17 at 07:00 Acetaminophen (Tylenol Liquid) 650 mg Q6H PRN PO PAIN LEVEL 1-3 OR FEVER; Start 07/12/17 at 07:00 Morphine Sulfate (morphine) 2 mg Q4H PRN IV PAIN LEVEL 7-10; Start 07/12/17 at 07:00 Miscellaneous Information 1 ea NOTE XX ; Start 07/12/17 at 18:00 Glucose (Glutose) 15 gm Q15M PRN PO DECREASED GLUCOSE; Start 07/12/17 at 18:00 Glucose (Glutose) 22.5 gm Q15M PRN PO DECREASED GLUCOSE; Start 07/12/17 at 18:00 Dextrose (D50w Syringe) 25 ml Q15M PRN IV DECREASED GLUCOSE; Start 07/12/17 at 18:00 Dextrose (D50w Syringe) 50 ml Q15M PRN IV DECREASED GLUCOSE; Start 07/12/17 at 18:00 Glucagon (Glucagen) 1 mg Q15M PRN IM DECREASED GLUCOSE; Start 07/12/17 at 18:00 Glucose 15 gm 15 gm Q15M PRN BUCCAL DECREASED GLUCOSE; Start 07/12/17 at 18:00 Ceftriaxone Sodium (Rocephin) 50 ml @ 100 mls/hr Q24H IVPB Last administered on 07/15/17 18:12; Admin Dose 100 MLS/HR; Start 07/13/17 at 17:30 Pantoprazole (Protonix Tab) 40 mg DAILY@06 PO Last administered on 07/16/17 05 :04; Admin Dose 40 MG; Start 07/14/17 at 06:00 Potassium Chloride (Klor-Con 20) 40 meq BID PO Last administered on 07/16/17 08:39; Admin Dose 40 MEQ; Start 07/15/17 at 07:00 Insulin Glargine (Lantus) 24 unit DAILY@20 SC ; Start 07/16/17 at 20:00 HANNAH COX MD Jul 16, 2017 17:59
[2017-07-16] MEDS: CEFTRIAXONE 1 GM/50 ML (PMX) 50 ML IVPB SCH (18:03)
[2017-07-16] MEDS ORDERED: INSULIN GLARGINE [LANtus] 3 ML PEN SC SCH (20:00)
[2017-07-16 20:14] VITALS: BP 91/57; RESP 20
[2017-07-17 02:31] VITALS: BP 93/51; RESP 20
[2017-07-17] MEDS: PANTOPRAZOLE (EC) 40 MG TAB PO SCH (05:13)
[2017-07-17 07:30] VITALS: BP 92/57; RESP 20
[2017-07-17] MEDS: POTASSIUM CHLORIDE (SR) 20 MEQ TAB PO SCH (08:34)
[2017-07-17] MEDS: INSULIN ASPART [NOVOLOG] 3 ML PEN SC SCH ×6 (08:36→17:52)
--- NOTE | 2017-07-17 13:46 | CONS ---
Date/Time of Note Date/Time of Note DATE: 07/17/17 TIME: 13:39 Assessment/Plan Assessment/Plan Problems: (1) Diabetes mellitus, new onset Status: Acute Comment: Previously this diagnosis read as type 1 diabetes new onset. However patient has tested negative for anti-SORAYA 65 antibody and islet cell antibody. This decreases the likelihood that she has type 1 diabetes. There are other antibodies to test but would not keep patient in-house for further workup. Patient has good glycemic control on current insulin doses and can be discharged on these doses. Best evaluation as an outpatient after discharge would be to evaluate her C-peptide with her glucose in fair control. If it is normal or elevated, she likely has type 2 diabetes and at that time can be transitioned to oral hypoglycemic therapy. Now with good glycemic control patient can be discharged home provided it is the will of the primary team. We will be happy to follow the patient in my office at least one visit on a pro inessa basis and then hopefully when she acquires health insurance can see her long-term. Have informed the patient that she can call me should she have problems with her glycemic control. Patient okay for discharge from endocrine standpoint Consultation Date/Type/Reason Admit Date/Time Jul 12, 2017 at 06:05 Initial Consult Date 07/12/17 Type of Consultation: Endocrinology Reason for Consultation DKA Referring Provider: NICK ARAUJO MD 24 HR Interval Summary Constitutional: improved, no complaints Detailed Summary Respiratory: no complaints Cardiovascular: no complaints Gastrointestinal: no complaints Genitourinary: no complaints Musculoskeletal: no complaints Neurologic: no complaints Exam/Review of Systems Vital Signs Vitals VS - Last 72 Hours, by Label Date Time Temp Pulse Resp B/P Pulse Ox O2 Delivery O2 Flow Rate FiO2 07/17/17 07:30 97.6 68 20 92/57 99 07/17/17 02:31 98.2 75 20 93/51 97 07/16/17 20:14 98.1 79 20 91/57 100 07/16/17 14:30 98.0 79 18 107/63 97 07/16/17 07:24 98.1 81 18 96/56 99 07/16/17 01:58 99.0 67 16 98/58 100 07/15/17 19:07 98.6 96 16 99/60 100 07/15/17 14:00 98.1 88 20 106/62 97 07/15/17 08:05 97.8 85 20 101/55 98 07/15/17 02:15 98.8 108 18 101/63 97 07/14/17 19:15 98.0 103 18 103/59 97 07/14/17 16:51 97.7 107 20 111/71 99 07/14/17 15:18 98.0 87 18 123/69 Vital Signs Date Time Temp Pulse Resp B/P Pulse Ox O2 Delivery O2 Flow Rate FiO2 07/17/17 07:30 97.6 68 20 92/57 99 07/14/17 07:53 Room Air Intake and Output 07/16/17 07/16/17 07/17/17 15:00 23:00 07:00 Intake Total 1100 ml 850 ml Balance 1100 ml 850 ml Exam Constitutional: alert, oriented, well developed Psych: nl mood/affect, no complaints Respiratory: clear to auscultation, normal air movement Cardiovascular: nl pulses, regular rate and rhythm, No edema, No murmurs/extra sounds, No rub Gastrointestinal: bowel sounds, nl liver, spleen, non-tender, soft, No mass, No rebound or guarding Musculoskeletal: nl extremities to inspection Extremities: normal pulses, No clubbing, No cyanosis, No edema Neurological: ANIMAL SKINNER II-XII intact, nl mental status, nl speech, nl strength Additional Comments Bedside Glucose - 72 Hours Test 07/14/17 17:57 07/14/17 21:02 07/15/17 08:47 07/15/17 12:37 Bedside Glucose 254mg/dL (70-220) H 318mg/dL (70-220) H 232mg/dL (70-220) H 198mg/dL (70-220) Test 07/15/17 17:38 07/15/17 20:26 07/16/17 08:41 07/16/17 12:46 Bedside Glucose 218mg/dL (70-220) 231mg/dL (70-220) H 170mg/dL (70-220) 245mg/dL (70-220) H Test 07/16/17 17:54 07/16/17 20:11 07/17/17 08:28 07/17/17 12:50 Bedside Glucose 202mg/dL (70-220) 164mg/dL (70-220) 154mg/dL (70-220) 174mg/dL (70-220) Results Result Diagram: 07/16/17 0448 07/16/17 1404 Results 24 hrs Laboratory Tests Test 07/16/17 14:04 07/16/17 17:54 07/16/17 20:11 07/17/17 07:49 Sodium Level 136 Potassium Level 3.8 Chloride Level 100 Carbon Dioxide Level 27 Anion Gap 13 Blood Urea Nitrogen 10 Creatinine 0.66 Glucose Level 242 H Calcium Level 9.5 Magnesium Level 1.9 Bedside Glucose 202 164 Lab Scanned Report REFERENCE LAB Test 07/17/17 08:28 07/17/17 12:50 Bedside Glucose 154 174 Medications Medications Current Medications Ondansetron HCl (Zofran Inj) 4 mg Q6H PRN IV NAUSEA AND/OR VOMITING Last administered on 07/12/17 09:48; Admin Dose 4 MG; Start 07/12/17 at 07:00 Acetaminophen (Tylenol Liquid) 650 mg Q6H PRN PO PAIN LEVEL 1-3 OR FEVER; Start 07/12/17 at 07:00 Morphine Sulfate (morphine) 2 mg Q4H PRN IV PAIN LEVEL 7-10; Start 07/12/17 at 07:00 Miscellaneous Information 1 ea NOTE XX ; Start 07/12/17 at 18:00 Glucose (Glutose) 15 gm Q15M PRN PO DECREASED GLUCOSE; Start 07/12/17 at 18:00 Glucose (Glutose) 22.5 gm Q15M PRN PO DECREASED GLUCOSE; Start 07/12/17 at 18:00 Dextrose (D50w Syringe) 25 ml Q15M PRN IV DECREASED GLUCOSE; Start 07/12/17 at 18:00 Dextrose (D50w Syringe) 50 ml Q15M PRN IV DECREASED GLUCOSE; Start 07/12/17 at 18:00 Glucagon (Glucagen) 1 mg Q15M PRN IM DECREASED GLUCOSE; Start 07/12/17 at 18:00 Glucose 15 gm 15 gm Q15M PRN BUCCAL DECREASED GLUCOSE; Start 07/12/17 at 18:00 Ceftriaxone Sodium (Rocephin) 50 ml @ 100 mls/hr Q24H IVPB Last administered on 07/16/17 18:03; Admin Dose 100 MLS/HR; Start 07/13/17 at 17:30 Pantoprazole (Protonix Tab) 40 mg DAILY@06 PO Last administered on 07/17/17 05 :13; Admin Dose 40 MG; Start 07/14/17 at 06:00 Potassium Chloride (Klor-Con 20) 40 meq BID PO Last administered on 07/17/17 08:34; Admin Dose 40 MEQ; Start 07/15/17 at 07:00 Insulin Glargine (Lantus) 24 unit DAILY@20 SC Last administered on 07/16/17 20 :14; Admin Dose 24 UNIT; Start 07/16/17 at 20:00 HANNAH COX MD Jul 17, 2017 13:46
[2017-07-17 14:29] LABS: CALCIUM 9.2 mg/dl (8.4-10.2); CREATININE 0.63 mg/dl (0.44-1.00)
[2017-07-17] MEDS ORDERED: LANT3I SC (16:20)
[2017-07-17] MEDS ORDERED: NOVO3I SC (16:20)
--- NOTE | 2017-07-17 16:24 | PDOCDIS ---
Discharge Instructions DIAGNOSIS Discharge Diagnosis 1. DKA. 2. Diabetes mellitus. 3. Urinary tract infection. 4. Hypokalemia. HOME CARE INSTRUCTIONS: Special Diet: carbohydrate controlled FOLLOW UP/APPOINTMENTS Follow-up Plan 1. Follow up with Dr. Onofre Jones in one week 2. follow up with your primary care provider in 1-2 weeks TIMI CALVO Jul 17, 2017 16:24
[2017-07-17] MEDS: CEFTRIAXONE 1 GM/50 ML (PMX) 50 ML IVPB SCH (17:04)
== END 2017-07-17 17:50 | disposition home or self-care (01) | DRG 638 ==
LOC: E/R 23:50 → ICU 07-12 06:05 → MS3 07-14 01:39 → MS1 07-14 16:14
PROVIDERS: ADMIT Family Medicine; ATTEND Family Medicine
DX: E10.10 Type 1 diabetes mellitus with ketoacidosis without coma (principal); N39.0 Urinary tract infection, site not specified; B95.1 Streptococcus, group B, as the cause of diseases classified elsewhere; E87.6 Hypokalemia
CPT/HCPCS: 80048; 80053; 80061; 81001; 82043; 82962; 83036; 83690; 83735; 84100; 84484; 84703; 85025; 86337; 86341; 87086; 93005; 96361; 96365; 96366; 96375; 96376; C9113; J0696; J0744; J1815; J2405; J3475; J3480; J7030

== ENCOUNTER 2018-11-14 16:28 | Inpatient (IN) | payer MEDICAID ==
[~2018-11-14] VITALS: Ht 165.1 cm; Wt 83.4 kg
[~2018-11-14 16:28] MED LIST: LANT3I SC; NOVO3I SC
[2018-11-14 16:31] VITALS: Ht 165.1 cm; Wt 83.4 kg
[2018-11-14] MEDS ORDERED: ONDANSETRON 4 MG INJ IV STA (17:26)
[2018-11-14] MEDS ORDERED: morphine 4 MG/ML VIAL IV STA (17:26)
[2018-11-14] MEDS ORDERED: SOD CHLORIDE 0.9% 810 ML IV ONE (17:30)
[2018-11-14] MEDS ORDERED: NS + KCL 40 MEQ 1,000 ML IV SCH (18:32)
[2018-11-14] MEDS ORDERED: SOD CHLORIDE 0.9% 1,000 ML IV SCH (18:32)
[2018-11-14] MEDS ORDERED: DEXTROSE 10 %/0.45 % NACL 1,000 ML IV SCH (18:32)
[2018-11-14] MEDS ORDERED: METF500T24 PO (18:55)
[2018-11-14] MEDS ORDERED: DEXTROSE 50% 50 ML SYRINGE IV PRN ×2 (19:00)
[2018-11-14] MEDS ORDERED: LACTATED RINGER S IV ONE (19:00)
[2018-11-14] MEDS: INSULIN REGULAR, HUMAN 100 UNIT in SOD CHLORIDE 0.9% 100 ML IV SCH ×2 (19:33)
[2018-11-14] MEDS: NS + KCL 30 MEQ 1,000 ML IV SCH (19:34)
--- NOTE | 2018-11-14 19:39 | ERD ---
ER Documentation Chief Complaint Chief Complaint right flank pain;vomitting 4 times - hx of diabetes - 330 mg/dl at home HPI 28-year-old female who is a diabetic who presents to the emergency room with right upper quadrant abdominal discomfort. The patient describes nausea and vomiting including nonbloody nonbilious emesis. Several episodes of looser stool. The patient's right upper quadrant pain is intermittent and cramping a pproximately 5 out of 10. Patient noted to have hyperglycemia. She denies any recent travel, sick contacts or antibiotics. ROS All systems reviewed and are negative except as per history of present illness. Medications Home Meds Reported Medications Metformin Hcl* (Metformin Hcl*) 500 Mg Tablet, 500 MG PO WITH BREAKFAST DINNE, #60 TAB 11/14/18 Discontinued Scripts Insulin Glargine* (Lantus*) 100 Unit/Ml Soln, 24 UNIT SC DAILY@20 for 30 Days Prov:TIMI CALVO 07/17/17 Insulin Aspart* (Novolog Insulin Pen*) 100 Unit/Ml Soln, 10 UNIT SC WITH MEALS for 30 Days Prov:TIMI CALVO 07/17/17 Allergies Allergies: Coded Allergies: No Known Allergy (Unverified , 11/14/18) PMhx/Soc History of Surgery: No Anesthesia Reaction: No Hx Neurological Disorder: No Hx Respiratory Disorders: No Hx Cardiac Disorders: No Hx Psychiatric Problems: No Hx Miscellaneous Medical Probl: No Hx Alcohol Use: Yes (Socially) Hx Substance Use: No Hx Tobacco Use: No FmHx Family History: diabetes Physical Exam Vitals Vital Signs Date Temp Pulse Resp B/P (MAP) Pulse Ox O2 O2 Flow FiO2 Time Delivery Rate 11/14/18 98.6 26 126/100 100 Room Air 17:15 (109) 11/14/18 98.6 124 26 126/100 100 16:31 (109) Physical Exam General: Patient with Kussmaul respirations Head: Normocephalic, atraumatic. Eyes: Pupils equally reactive, EOM intact ENT: Very dry mucous membranes Neck: Supple, no lymphadenopathy Respiratory: Lungs clear bilaterally, no distress Cardiovascular: Tachycardia, no murmurs, rubs, or gallops Abdominal: Soft, very subtle right upper quadrant tenderness that is inconsistent, no tenderness to McBurney's point, no peritonitis : Deferred MSK: No edema, no unilateral swelling, 5/5 strength Neurologic: Alert and oriented, moving all extremities, normal speech, no focal weakness, no cerebellar signs Skin: No rash Psych: Normal mood Result Diagram: 11/14/18181811/14/181818 Results 24 hrs Laboratory Tests Test 11/14/18 17:26 11/14/18 18:11 11/14/18 18:19 11/14/18 18:49 Blood Gas Blood venous Specimen Source Arterial Blood 11/14/2018 6:19: Date Drawn 07 PM Arterial Blood OTHER Gas Puncture Site Hayden Test N/A Venous Blood pH 6.990 Venous Blood 24.2 mmHG pCO2 (Temp Corrected ) Venous Blood 26.5 mmHG pO2 (Temp Corrected ) Venous Blood 5.7 mmol/L HCO3 Venous Blood 51.5 mmHG Oxygen Saturation Venous Blood -24.6 mmol/L Base Excess Venous Blood 17.3 g/dl Total Hemoglobin Venous Blood 51.3 % Oxyhemoglobin Venous Blood 0.2 % Methemoglobin Blood Gas A-a 94.3 mmHg O2 Differential Carboxyhemoglob 0.2 % in Blood Gas 37.0 C Temperature Blood Gas ROOM AIR Modality FiO2 21.0 % Blood Gas ROLLY Riggins.Ayleen Critical Value Read Back Blood Gas MDA Notified Whom Blood Gas 11/14/2018 6:22: Notified Time 53 PM Bedside Glucose 334 mg/dL White Blood 16.5 10^3/ul Count Red Blood Count 5.48 10^6/ul Hemoglobin 15.8 g/dl Hematocrit 48.0 % Mean 87.6 fl Corpuscular Volume Mean 28.8 pg Corpuscular Hemoglobin Mean 32.9 g/dl Corpuscular Hemoglobin Conc ent Red Cell 14.6 % Distribution Width Platelet Count 400 10^3/UL Mean Platelet 10.8 fl Volume Immature 1.400 % Granulocytes % Neutrophils % 72.7 % Lymphocytes % 13.6 % Monocytes % 11.3 % Eosinophils % 0.1 % Basophils % 0.9 % Nucleated Red 0.0 /100WBC Blood Cells % Immature 0.230 10^3/ul Granulocytes # Neutrophils # 12.0 10^3/ul Lymphocytes # 2.3 10^3/ul Monocytes # 1.9 10^3/ul Eosinophils # 0.0 10^3/ul Basophils # 0.2 10^3/ul Nucleated Red 0.0 10^3/ul Blood Cells # Sodium Level 140 mmol/L Potassium Level 3.5 mmol/L Chloride Level 110 mmol/L Carbon Dioxide 6 mmol/L Level Anion Gap 24 Blood Urea 9 mg/dl Nitrogen Creatinine 0.92 mg/dl Est Glomerular > 60 mL/min Filtrat Rate mL/min Glucose Level 388 mg/dl Hemoglobin A1c 12.9 % Calcium Level 9.3 mg/dl Phosphorus 3.6 mg/dl Level Magnesium Level 2.2 mg/dl Total Bilirubin 0.1 mg/dl Direct 0.00 mg/dl Bilirubin Indirect 0.1 mg/dl Bilirubin Aspartate Amino 36 IU/L Transf (AST/SGO T) Alanine 43 IU/L Aminotransferas e (ALT/SGPT) Alkaline 158 IU/L Phosphatase Total Protein 8.9 g/dl Albumin 5.1 g/dl Globulin 3.80 g/dl Albumin/Globuli 1.34 n Ratio Urine Color YELLOW Urine Clarity SLIGHTLY CLOUDY Urine pH 5.0 Urine Specific 1.017 [place] Urine Ketones 2+ mg/dL Urine Nitrite NEGATIVE mg/dL Urine Bilirubin NEGATIVE mg/dL Urine NEGATIVE mg/dL Urobilinogen Urine Leukocyte TRACE Valentina/ul Esterase Urine 1 /HPF Microscopic RBC Urine 2 /HPF Microscopic WBC Urine Squamous FEW /HPF Epithelial Cell s Urine Bacteria FEW /HPF Urine Granular FEW /HPF Casts Urine 2+ mg/dL Hemoglobin Urine Glucose 3+ mg/dL Urine Total 2+ mg/dl Protein POC Beta HCG, NEGATIVE Qualitative Test 11/14/18 19:16 Bedside Glucose 361 mg/dL Current Medications Medications Dose Sig/Barak Start Time Status Last (Trade) Ordered Route PRN Stop Time Admin Dose Reason Admin Sodium 810 ml @ ONCE ONCE 11/14/18 DC 11/14/18 Chloride 810 mls/hr IV 17:30 18:30 11/14/18 18:29 Morphine 4 mg ONCE STAT 11/14/18 DC 11/14/18 Sulfate IV 17:26 18:30 (morphine) 11/14/18 17:30 Ondansetron 4 mg ONCE STAT 11/14/18 DC 11/14/18 HCl (Zofran IV 17:26 18:30 Inj) 11/14/18 17:30 Potassium 1,000 ml @ Q0M IV 11/14/18 Chloride/Sodi 0 mls/hr 18:32 um Chloride Potassium 1,000 ml @ Q0M IV 11/14/18 Chloride/Dext 0 mls/hr 18:32 sandy/ Sod Cl Potassium 1,000 ml @ Q0M IV 11/14/18 11/14/18 Chloride/Sodi 0 mls/hr 18:32 19:34 um Chloride Potassium 1,000 ml @ Q0M IV 11/14/18 Chloride/Dext 0 mls/hr 18:32 sandy/ Sod Cl Sodium 1,000 ml @ Q0M IV 11/14/18 Chloride 0 mls/hr 18:32 1,000 ml @ Q0M IV 11/14/18 Dextrose/Sodi 0 mls/hr 18:32 um Chloride Insulin 101 ml @ ER DKA 11/14/18 11/14/18 Human 8.18 mls/hr PROTOCOL IV 19:00 19:33 Regular 100 unit/ Sodium Chloride Lactated 810 ml @ ONCE ONCE 11/14/18 11/14/18 Ringer's 810 mls/hr IV 19:00 18:43 11/14/18 19:59 HYPOGLYCEM 11/14/18 Miscellaneous HYPOGLYCEMIA PROTOCOL PRN 19:00 TREATMENT XX Information HYPOGLYCEMIA (* (BS<70) Miscellaneous Pharmacy Order) Dextrose 50 ml Q15M PRN 11/14/18 (D50w IV DECREASED 19:00 Syringe) GLUCOSE Dextrose 25 ml Q15M PRN 11/14/18 (D50w IV DECREASED 19:00 Syringe) GLUCOSE Procedures/MDM EKG, MONITORS, & DIAGNOSTIC IMAGING: Gallbladder ultrasound: IMPRESSION: 1. No evidence cholelithiasis or acute cholecystitis. 2. Fatty change of the liver RPTAT: Chest x-ray: I reviewed and interpreted a 1 view of the chest Mediastinum: No enlargement Cardiac silhouette: No cardiomegaly Airspace: Clear lung fortune bilaterally without evidence of pneumothorax Bones: No evidence of fracture LAB INTERPRETATION: * CBC reveals leukocytosis of 16.5, no left shift. Likely stress response. * Venous blood gas shows significant acidosis * Chemistry profile shows evidence of diabetic ketoacidosis with anion gap of 24. A1c is significantly elevated at 12.9. No evidence of hepatobiliary obstruction. * Urinalysis not consistent with UTI MEDICAL DECISION MAKING: Clinical exam and history of very concerning for diabetic ketoacidosis. The patient has tachycardia, increased pulse respirations. Trigger is likely viral process with nausea vomiting and diarrhea. However right upper quadrant ultrasound will be indicated given patient's localization of discomfort. The patient's abdominal exam is otherwise unrevealing. Low concern for appendicitis or alternative acute abdominal process. ER COURSE: * Laboratory testing confirms diabetic ketoacidosis. The patient has received fluid resuscitation effort with normal saline and lactated Ringer's. * The patient was initiated on DKA protocol * The patient is leukocytosis likely secondary to stress response. The patient has no evidence of infectious process other than nausea vomiting and diarrhea at this time. Repeat abdominal exam is improving. At this point no indication for CT imaging of the abdomen and pelvis. Continue to monitor. * Blood cultures been taken for screening given the patient's elevated white count but no indication for antibiotics at this time * The patient's vital signs are improving with fluid resuscitation. CONSULTATION: [None] DISPOSITION PLAN: Intensive care unit Accepting care team and consultations: I discussed the current laboratory data, diagnostic imaging and emergency care provided. Admitting team: Dr. Moreira Admitting team indication: Insurance directed Critical Care Note: Total time: 50 minutes Indication/Organ System Threat: DKA I spent the above amount of critical care time with the patient, not including billable procedures. This included chart review, consultations, repeat bedside evaluations, and titration of appropriate medications to prevent cardiopulmonary or respiratory collapse. Departure Diagnosis: Primary Impression: Diabetic ketoacidosis Diabetes mellitus type: other specified (including KATHARINE) Diabetes mellitus complication detail: without coma Qualified Codes: E13.10 - Other spe cified diabetes mellitus with ketoacidosis without coma Additional Impressions: Nausea vomiting and diarrhea Leukocytosis Leukocytosis type: unspecified Qualified Codes: D72.829 - Elevated white blood cell count, unspecified Condition: Critical WENDI WHITTAKER MD Nov 14, 2018 19:39
--- NOTE | 2018-11-14 20:11 | HP ---
Date/Time of Note Date/Time of Note DATE: 11/14/18 TIME: 20:11 Assessment/Plan VTE Prophylaxis SCD applied (from Nsg): Yes Pharmacological prophylaxis: NA/contraindicated Pharm contraindication: low risk/ambulating Lines/Catheters IV Catheter Type (from Nrsg): Peripheral IV Assessment/Plan Hospital Course This is a 28-year-old female being admitted to the ICU floor for: #1 diabetic ketoacidosis: PH at the current time is 6.9 and bicarb is 6. At the current time we will continue on the DKA protocol. Insulin drip. If pH does not improve will consider sodium bicarb. Hemoglobin A1c is 12.9 which is consistent with likely noncompliance with her medications. Will consult endocrinology Dr. Jones #2 Anion gap metabolic acidosis: Secondary to diabetic ketoacidosis. At the current time we will continue DKA protocol. Consider bicarb if indicated. #3 diabetes mellitus type 2: Hemoglobin A1c is 12.9. Patient reports that she takes metformin at home and is noncompliant with her insulin. We will need to optimize her diabetes medication regimen once DKA is resolved. Will consult endocrinology. #4 cough: Likely viral, no signs of pneumonia on chest x-ray. Patient is afebrile. Will provide PRN breathing treatments and antitussives. Continue to monitor for any signs of fever or infection. #5 leukocytosis: Likely a stress response, continue to monitor. Right upper quadrant ultrasound was negative for any acute infection. #6 DVT GI prophylaxis: SCDs, Protonix Further treatment strategy will be implemented as per the clinical course. Result Diagram: 11/14/18 1819 11/14/181818 Results 24hrs Laboratory Tests Test 11/14/18 17:26 11/14/18 18:11 11/14/18 18:19 11/14/18 18:49 Blood Gas Blood venous Specimen Source Arterial Blood 11/14/2018 6:19: Date Drawn 07 PM Arterial Blood OTHER Gas Puncture Site Hayden Test N/A Venous Blood pH 6.990 *L Venous Blood 24.2 L pCO2 (Temp Corrected) Venous Blood pO2 26.5 (Temp Corrected) Venous Blood 5.7 L HCO3 Venous Blood 51.5 L Oxygen Saturation Venous Blood -24.6 L Base Excess Venous Blood 17.3 Total Hemoglobin Venous Blood 51.3 Oxyhemoglobin Venous Blood 0.2 Methemoglobin Blood Gas A-a O2 94.3 Differential Carboxyhemoglobi 0.2 n Blood Gas 37.0 Temperature Blood Gas ROOM AIR Modality FiO2 21.0 Blood Gas ROLLY R.NAshley Critical Value Read Back Blood Gas MDA Notified Whom Blood Gas 11/14/2018 6:22: Notified Time 53 PM Bedside Glucose 334 H White Blood 16.5 #H Count Red Blood Count 5.48 #H Hemoglobin 15.8 # Hematocrit 48.0 #H Mean Corpuscular 87.6 Volume Mean Corpuscular 28.8 L Hemoglobin Mean Corpuscular 32.9 Hemoglobin Brenda nt Red Cell 14.6 H Distribution Width Platelet Count 400 # Mean Platelet 10.8 H Volume Immature 1.400 H Granulocytes % Neutrophils % 72.7 Lymphocytes % 13.6 L Monocytes % 11.3 H Eosinophils % 0.1 Basophils % 0.9 Nucleated Red 0.0 Blood Cells % Immature 0.230 H Granulocytes # Neutrophils # 12.0 H Lymphocytes # 2.3 Monocytes # 1.9 H Eosinophils # 0.0 Basophils # 0.2 H Nucleated Red 0.0 Blood Cells # Sodium Level 140 Potassium Level 3.5 Chloride Level 110 Carbon Dioxide 6 *L Level Anion Gap 24 H Blood Urea 9 Nitrogen Creatinine 0.92 Est Glomerular > 60 Filtrat Rate mL/min Glucose Level 388 H Hemoglobin A1c 12.9 H Calcium Level 9.3 Phosphorus Level 3.6 Magnesium Level 2.2 Total Bilirubin 0.1 L Direct Bilirubin 0.00 Indirect 0.1 Bilirubin Aspartate Amino 36 Transf (AST/SGOT ) Alanine 43 Aminotransferase (ALT/SGPT) Alkaline 158 H Phosphatase Total Protein 8.9 H Albumin 5.1 H Globulin 3.80 H Albumin/Globulin 1.34 Ratio Urine Color YELLOW Urine Clarity SLIGHTLY CLOUDY A Urine pH 5.0 Urine Specific 1.017 [place] Urine Ketones 2+ H Urine Nitrite NEGATIVE Urine Bilirubin NEGATIVE Urine NEGATIVE Urobilinogen Urine Leukocyte TRACE A Esterase Urine 1 Microscopic RBC Urine 2 Microscopic WBC Urine Squamous FEW Epithelial Cells Urine Bacteria FEW A Urine Granular FEW A Casts Urine Hemoglobin 2+ H Urine Glucose 3+ H Urine Total 2+ H Protein POC Beta HCG, NEGATIVE Qualitative Test 11/14/18 19:16 Bedside Glucose 361 H HPI/ROS Admit Date/Time Admit Date/Time Hx of Present Illness Chief complaint: Right upper quadrant discomfort, difficulty breathing times 4 days, cough yesterday, vomiting 28-year-old female who is a diabetic who presents to the emergency room with right upper quadrant abdominal discomfort. The patient describes nausea and vomiting including nonbloody nonbilious emesis. Several episodes of looser stool. The patient's right upper quadrant pain is intermittent and cramping approximately 5 out of 10. Patient reports that her blood sugars have been ranging around the 330 range. She is only on oral medications at the current time she is also prescribed insulin however she has been noncompliant with it. Patient noted to have hyperglycemia. She denies any recent travel, sick contacts or antibiotics. He denies any fevers. Allergies: NKDA Medications: See MAR ROS Const: As per HPI Eyes : No pain discharge or redness or change in visual acuity ENT: No pain, sore throat, congestion, congestion, dysphagia or discharge Respiratory: As per HPI Cardiovascular: No chest pain, palpitation, PND, or edema GI : As per HPI Genitourinary: No dysuria, hematuria, flank pain , discharge or CVA tenderness Musculoskeletal: No joint pain, back pain, neck pain, restricted range of motion in neck or joints Skin: No rash, bruising or hives Neuro: No headache, dizziness, syncope, seizure, focal weakness Endocrine: As per HPI Psych: No hallucination, depression, anxiety or suicidal ideation PMH/Family/Social Past Medical History Diabetes mellitus type 2 Medications Current Medications Potassium Chloride/Sodium Chloride 1,000 ml @ 0 mls/hr Q0M IV ; Start 11/14/18 at 18:32 Potassium Chloride/Dextrose/ Sod Cl 1,000 ml @ 0 mls/hr Q0M IV ; Start 11/14/18 at 18:32 Potassium Chloride/Sodium Chloride 1,000 ml @ 0 mls/hr Q0M IV Last administered on 11/14/18at 19:34; Admin Dose 250 MLS/HR; Start 11/14/18 at 18:32 Potassium Chloride/Dextrose/ Sod Cl 1,000 ml @ 0 mls/hr Q0M IV ; Start 11/14/18 at 18:32 Sodium Chloride 1,000 ml @ 0 mls/hr Q0M IV ; Start 11/14/18 at 18:32 Dextrose/Sodium Chloride 1,000 ml @ 0 mls/hr Q0M IV ; Start 11/14/18 at 18:32 Insulin Human Regular 100 unit/ Sodium Chloride 101 ml @ 8.18 mls/hr ER DKA PROTOCOL IV Last administered on 11/14/18at 19:33; Admin Dose 8.1 MLS/HR; Start 11/14/18 at 19:00 Miscellaneous Information (* Miscellaneous Pharmacy Order) HYPOGLYCEMIA TREATMENT HYPOGLYCEM PROTOCOL PRN XX HYPOGLYCEMIA (BS<70); Start 11/14/18 at 19:00 Dextrose (D50w Syringe) 50 ml Q15M PRN IV DECREASED GLUCOSE; Start 11/14/18 at 19:00 Dextrose (D50w Syringe) 25 ml Q15M PRN IV DECREASED GLUCOSE; Start 11/14/18 at 19:00 Coded Allergies: No Known Allergy (Unverified , 11/14/18) Past Surgical History Past Surgical Hx: no surgical history Family History Significant Family History: diabetes Social History Alcohol Use: none Smoking Status: Never smoker Drug Use: none Exam/Review of Systems Vital Signs Vitals Vital Signs Date Temp Pulse Resp B/P (MAP) Pulse Ox O2 O2 Flow FiO2 Time Delivery Rate 11/14/18 112 26 119/83 98 Nasal 2.0 20:00 (95) Cannula 11/14/18 98.6 17:15 Exam Exam General: Patient currently lying in bed she is having a nonproductive cough, but she does not appear to be in any acute distress, does appear lethargic HEENT: Atraumatic, normocephalic. The pupils are equal, round and reactive. Extraocular motor are intact Neck: Supple with full range of motion. No rigidity or meningismus Chest: Nontender to palpation Lungs: Clear to auscultation bilaterally no crackles rales or wheezing, productive cough Heart: Normal S1-S2, Regular rhythm and rate. No murmur, S3, or S4 Abdomen: Obese, soft , nontender, nondistended , bowel sounds are present. No guarding no rebound tenderness , No masses or organomegaly. No costovertebral temporal angle mass Extremities: Normal to inspection, no edema no cyanosis Neurologic: Normal mental status, speech normal, cranial nerves II through XII are intact, motor and sensory are intact, no focal weakness Additional Comments PROCEDURE: XR Chest. CLINICAL INDICATION: chest pain, hyperglycemia TECHNIQUE: Single frontal view of the chest was obtained COMPARISON: None FINDINGS: The heart and mediastinum are within normal limits. The lungs are clear. There is no pleural effusion or pneumothorax. RPTAT: AA IMPRESSION: No acute disease. .Olman Ontiveros MD, MD Date Time Electronically viewed and signed by .Olman Ontiveros MD, MD on 11/14/2018 17:44 .S/ CC: WENDI WHTITAKER MD [id number] PROCEDURE: Right upper quadrant ultrasound CLINICAL INDICATION: Abdominal pain TECHNIQUE: Multiple real-time images were acquired of the patient's abdomen and right retroperitoneum utilizing a high resolution transducer. COMPARISON: None FINDINGS: The liver is increased in echogenicity and measures 16.0 cm. No focal hepatic masses are seen. The gallbladder is physiologically distended. There is no evidence of gallstones, gallbladder wall thickening, or pericholecystic fluid. The intra and extrahepatic bile ducts are normal in caliber. The common bile duct measures 4.3 mm. Midline images demonstrate the pancreas to be normal in echogenicity without obvious inflammatory change. Survey views of the right kidney demonstrate no evidence of hydronephrosis or renal calculi. The right kidney measures 10.7 cm. IMPRESSION: 1. No evidence cholelithiasis or acute cholecystitis. 2. Fatty change of the liver RPTAT: HH .Morgan Villafana MD, MD Date Time Electronically viewed and signed by .Morgan Villafana MD, MD on 11/14/2018 18:34 .W/ CC: WENDI WHITTAKER MD [phone] PARISA SUN Nov 14, 2018 20:11
[2018-11-14] MEDS ORDERED: ALBUTEROL 0.083% (NEB) 2.5 MG/3 ML AMP NEB PRN (20:30)
[2018-11-14] MEDS ORDERED: ONDANSETRON 4 MG INJ IV PRN (20:30)
[2018-11-14] MEDS ORDERED: morphine 2 MG INJ IV PRN (20:30)
[2018-11-14] MEDS ORDERED: ACETAMINOPHEN 650MG/20.3ML CUP PO PRN (20:30)
[2018-11-14] MEDS ORDERED: IPRATROPIUM (NEB) 0.5 MG/2.5 ML AMP NEB PRN (20:30)
[2018-11-14] MEDS: D10/0.45% NACL + KCL 30 MEQ 1,000 ML IV SCH (21:59)
[2018-11-14 22:00] VITALS: BP 116/53; PULSE 104; RESP 26
[2018-11-14] MEDS: D10/0.45% NACL + KCL 40 MEQ 1,000 ML IV SCH (22:06)
[2018-11-14 23:00] VITALS: BP 125/81; PULSE 111; RESP 29
[2018-11-14] MEDS: HEPARIN 5,000 UNIT/1 ML VIAL SC SCH (23:32)
[2018-11-15] VITALS (24 sets, daily range): BP systolic 92–127; BP diastolic 68–87; PULSE 83–117; RESP 14–29
[2018-11-15] MEDS ORDERED: LEVALBUTEROL (NEB) 1.25 MG/0.5 ML AMP HHN PRN (01:30)
[2018-11-15] MEDS ORDERED: GUAIFENESIN 20 MG/ML 5ML CUP ONE (01:48)
[2018-11-15] MEDS: NS + KCL 30 MEQ 1,000 ML IV SCH (02:32)
[2018-11-15] MEDS: POTASSIUM CHLORIDE 40 MEQ in SOD CHLORIDE 0.45% 1,000 ML IV SCH ×3 (04:35→17:25)
[2018-11-15] MEDS: PANTOPRAZOLE 40 MG INJ IV SCH (05:31)
[2018-11-15] MEDS: HEPARIN 5,000 UNIT/1 ML VIAL SC SCH ×3 (05:34→21:46)
[2018-11-15] MEDS: INSULIN REGULAR, HUMAN 100 UNIT in SOD CHLORIDE 0.9% 100 ML IV SCH ×4 (08:33→17:29)
--- NOTE | 2018-11-15 08:57 | CONS ---
DATE OF ADMISSION: 11/14/2018 DATE OF CONSULTATION: 11/15/2018 REASON FOR CONSULTATION: Hypokalemia and metabolic acidemia. HISTORY OF PRESENT ILLNESS: This is a 28-year-old female with past medical history of diabetes, poor ly controlled, who presents to [facility] with right upper quadrant discomfor t. The patient describes nausea, vomiting over the past several days as well as loose stools. The p atient describes right upper quadrant pain as 5/10. The patient upon arrival to the emergency room w as noted to be in diabetic ketoacidosis and placed on diabetic ketoacidosis protocol and admitted to intensive care unit. In the intensive care unit, the patient noted to have a continued acidemia and hypokalemia. There were no reports of any hemoptysis, hematemesis, or hematochezia. In terms of patient's renal history, the patient denies any prior history of acute kidney injury, and chronic kidney disease. PAST MEDICAL HISTORY: History of diabetes. PAST SURGICAL HISTORY: None. ALLERGIES: NO KNOWN DRUG ALLERGIES. FAMILY HISTORY: Positive for diabetes. MEDICATIONS: The patient's medications have been reviewed. REVIEW OF SYSTEMS: A 14-point review of systems conducted. Pertinent positives stated in HPI, other dickerson negative. PHYSICAL EXAMINATION: VITAL SIGNS: Blood pressure is 106/74, respirations 21, pulse 99. HEENT: Head is normocephalic. NECK: Supple. HEART: Regular rate. LUNGS: Show diminished breath sounds at the base. ABDOMEN: Soft, nontender to palpation without rebound or guarding. EXTREMITIES: Negative for clubbing, cyanosis, no edema. DERMATOLOGIC: No rashes. MUSCULOSKELETAL: No joint effusions. NEUROLOGIC: No change in exam. LABORATORY DATA: Shows sodium 146, potassium 2.8, chloride 125, bicarbonate 7, anion gap 14. White count 16.9, hemoglobin 13.6, platelet count 366. Urinalysis has been reviewed and positive granular casts. ASSESSMENT AND PLAN: This is a 28-year-old female who presents with: 1. Hypokalemia. Etiology is secondary to volume depletion secondary to diabetic ketoacidosis. We w ill continue aggressive potassium supplementation and monitor. 2. Hypernatremia. The patient has a free water deficit approximately 2 liters. Continue hypertonic fluid. 3. Mineral bone disorder. The patient is hypophosphatemic secondary to total body deficit. Continu e aggressive repletion with potassium phosphate. 4. Diabetic ketoacidosis. The patient's ABG was reviewed. We will continue insulin drip. No need for bicarbonate therapy at this time. We would expect anion gap to close and acidemia to resolve wit h current medical management. Glucose level should fall below 150 mg/dL. We may consider adding dex trose to regiment. 5. Systemic inflammatory response syndrome secondary to diabetic ketoacidosis. Continue to monitor. Thank you, Dr. Sun, for this interesting consult. It will be a pleasure to follow patient with frida harrison throughout the hospital course. Dictated By: CAROLYN LINDSEY DO NR/NTS Conf#: [id number] DID#: [id number] CC: PARISA SUN MD;*EndCC*
--- NOTE | 2018-11-15 09:16 | PN ---
Date/Time of Note Date/Time of Note DATE: 11/15/18 TIME: 09:09 Assessment/Plan VTE Prophylaxis SCD applied (from Nsg): Yes Pharmacological prophylaxis: NA/contraindicated Pharm contraindication: low risk/ambulating Lines/Catheters IV Catheter Type (from Nrsg): Peripheral IV Urinary Cath still in place: No Assessment/Plan Result Diagram: 11/15/18 0621 11/15/18 0620 Results 24hrs Laboratory Tests Test 11/14/18 17:26 11/14/18 18:11 11/14/18 18:19 11/14/18 18:49 Blood Gas Blood venous Specimen Source Arterial Blood 11/14/2018 6:19: Date Drawn 07 PM Arterial Blood OTHER Gas Puncture Site Hayden Test N/A Venous Blood pH 6.990 *L Venous Blood 24.2 L pCO2 (Temp Corrected ) Venous Blood 26.5 pO2 (Temp Corrected ) Venous Blood 5.7 L HCO3 Venous Blood 51.5 L Oxygen Saturation Venous Blood -24.6 L Base Excess Venous Blood 17.3 Total Hemoglobin Venous Blood 51.3 Oxyhemoglobin Venous Blood 0.2 Methemoglobin Blood Gas A-a 94.3 O2 Differential Carboxyhemoglob 0.2 in Blood Gas 37.0 Temperature Blood Gas ROOM AIR Modality FiO2 21.0 Blood Gas ROLLY R.NAshlye Critical Value Read Back Blood Gas MDA Notified Whom Blood Gas 11/14/2018 6:22: Notified Time 53 PM Bedside Glucose 334 H White Blood 16.5 #H Count Red Blood Count 5.48 #H Hemoglobin 15.8 # Hematocrit 48.0 #H Mean 87.6 Corpuscular Volume Mean 28.8 L Corpuscular Hemoglobin Mean 32.9 Corpuscular Hemoglobin Conc ent Red Cell 14.6 H Distribution Width Platelet Count 400 # Mean Platelet 10.8 H Volume Immature 1.400 H Granulocytes % Neutrophils % 72.7 Lymphocytes % 13.6 L Monocytes % 11.3 H Eosinophils % 0.1 Basophils % 0.9 Nucleated Red 0.0 Blood Cells % Immature 0.230 H Granulocytes # Neutrophils # 12.0 H Lymphocytes # 2.3 Monocytes # 1.9 H Eosinophils # 0.0 Basophils # 0.2 H Nucleated Red 0.0 Blood Cells # Sodium Level 140 Potassium Level 3.5 Chloride Level 110 Carbon Dioxide 6 *L Level Anion Gap 24 H Blood Urea 9 Nitrogen Creatinine 0.92 Est Glomerular > 60 Filtrat Rate mL/min Glucose Level 388 H Hemoglobin A1c 12.9 H Calcium Level 9.3 Phosphorus 3.6 Level Magnesium Level 2.2 Total Bilirubin 0.1 L Direct 0.00 Bilirubin Indirect 0.1 Bilirubin Aspartate Amino 36 Transf (AST/SGO T) Alanine 43 Aminotransferas e (ALT/SGPT) Alkaline 158 H Phosphatase Total Protein 8.9 H Albumin 5.1 H Globulin 3.80 H Albumin/Globuli 1.34 n Ratio Urine Color YELLOW Urine Clarity SLIGHTLY CLOUD Y A Urine pH 5.0 Urine Specific 1.017 [place] Urine Ketones 2+ H Urine Nitrite NEGATIVE Urine Bilirubin NEGATIVE Urine NEGATIVE Urobilinogen Urine Leukocyte TRACE A Esterase Urine 1 Microscopic RBC Urine 2 Microscopic WBC Urine Squamous FEW Epithelial Cell s Urine Bacteria FEW A Urine Granular FEW A Casts Urine 2+ H Hemoglobin Urine Glucose 3+ H Urine Total 2+ H Protein POC Beta HCG, NEGATIVE Qualitative Test 11/14/18 19:16 11/14/18 20:23 11/14/18 20:25 11/14/18 20:32 Bedside Glucose 361 H 295 H Sodium Level 146 H Potassium Level 3.2 L Chloride Level 113 H Carbon Dioxide < 5 *L Level Anion Gap 28 H Blood Urea 9 Nitrogen Creatinine 0.70 Est Glomerular > 60 Filtrat Rate mL/min Glucose Level 305 H Calcium Level 8.2 L Phosphorus 2.3 #L Level Magnesium Level 2.0 Blood Gas Blood venous Specimen Source Arterial Blood 11/14/2018 8:20 Date Drawn :55 PM Arterial Blood VENOUS LINE Gas Puncture Site [place] Test N/A Venous Blood pH 6.961 *L Venous Blood 27.0 L pCO2 (Temp Corrected ) Venous Blood 20.8 L pO2 (Temp Corrected ) Venous Blood 5.9 L HCO3 Venous Blood 34.2 L Oxygen Saturation Venous Blood -25.0 L Base Excess Venous Blood 14.9 Total Hemoglobin Venous Blood 34.0 Oxyhemoglobin Venous Blood 0.5 Methemoglobin Carboxyhemoglob 0.1 in Blood Gas 37.0 Temperature Blood Gas 20 Actual Respiration Rat e Blood Gas ROOM AIR Modality FiO2 21.0 Blood Gas [facility] Critical Value KAITLIN MONTELONGO Read Back Blood Gas Notified Whom Blood Gas 11/14/2018 8:27 Notified Time :50 PM Test 11/14/18 21:47 11/14/18 22:08 11/14/18 22:32 11/14/18 22:52 Bedside Glucose 232 H 249 H Sodium Level 146 H Potassium Level 3.4 L Chloride Level 116 H Carbon Dioxide < 5 *L Level Anion Gap 25 H Blood Urea 8 Nitrogen Creatinine 0.71 Est Glomerular > 60 Filtrat Rate mL/min Glucose Level 232 H Calcium Level 8.3 L Phosphorus 1.4 L Level Magnesium Level 2.1 Blood Gas Blood venous Specimen Source Arterial Blood 11/14/2018 11:10 Date Drawn :18 PM Arterial Blood VENOUS LINE Gas Puncture Site [place] Test N/A Venous Blood pH 7.030 *L Venous Blood 24.1 L pCO2 (Temp Corrected ) Venous Blood 17.4 L pO2 (Temp Corrected ) Venous Blood 6.2 L HCO3 Venous Blood 32.2 L Oxygen Saturation Venous Blood -23.2 L Base Excess Venous Blood 14.9 Total Hemoglobin Venous Blood 31.9 Oxyhemoglobin Venous Blood 0.6 Methemoglobin Carboxyhemoglob 0.2 in Blood Gas 37.0 Temperature Blood Gas NASAL CANNULA Modality FiO2 28.0 Blood Gas KHAN D RN Critical Value Read Back Blood Gas MA Notified Whom Blood Gas 11/14/2018 11:58 Notified Time :16 PM Test 11/14/18 23:58 11/15/18 01:07 11/15/18 01:58 11/15/18 02:31 Bedside Glucose 269 H 261 H 248 H Sodium Level 149 H Potassium Level 2.9 *L Chloride Level 121 H Carbon Dioxide 6 *L Level Anion Gap 22 H Blood Urea 6 L Nitrogen Creatinine 0.82 Est Glomerular > 60 Filtrat Rate mL/min Glucose Level 238 H Calcium Level 9.1 Phosphorus 1.3 L Level Magnesium Level 2.1 Test 11/15/18 02:32 11/15/18 03:03 11/15/18 04:02 11/15/18 04:07 Blood Gas Blood arterial Specimen Source Arterial Blood 11/15/2018 2:37: Date Drawn 04 AM Arterial Blood VENOUS LINE Gas Puncture Site [place] Test N/A Venous Blood pH 7.022 *L Venous Blood 24.6 L pCO2 (Temp Corrected ) Venous Blood 21.5 L pO2 (Temp Corrected ) Venous Blood 6.2 L HCO3 Venous Blood 44.7 L Oxygen Saturation Venous Blood -23.4 L Base Excess Venous Blood 16.6 Total Hemoglobin Venous Blood 44.4 Oxyhemoglobin Venous Blood 0 Methemoglobin Blood Gas A-a 149.1 O2 Differential Carboxyhemoglob 0.7 in Blood Gas 37.0 Temperature Blood Gas 25 Actual Respiration Rat e Blood Gas NASAL CANNULA Modality FiO2 28.0 Blood Gas KHAN,D.R.N. Critical Value Read Back Blood Gas MILEY BURNETT Notified Whom Blood Gas 11/15/2018 2:49: Notified Time 59 AM Bedside Glucose 193 306 H 372 H Test 11/15/18 05:00 11/15/18 05:05 11/15/18 06:02 11/15/18 06:20 Blood Gas Blood arterial Specimen Source Arterial Blood 11/15/2018 4:55: Date Drawn 06 AM Arterial Blood 7.205 *L pH (Temp corrected ) Arterial Blood 13.0 L pCO2 (Temp correct) Arterial Blood 126.0 H pO2 (Temp corrected ) Arterial Blood 5.0 *L HCO3 Arterial Blood -20.2 L Base Excess Arterial Blood 98.3 H Oxygen Saturati on Hayden Test ACCEPTAB Arterial Blood Right Radial Gas Puncture Site Arterial 0.1 Blood Carboxyhe moglobin Arterial Blood 0.4 Methemoglobin Blood Gas A-a 8.2 O2 Differential Oxyhemoglobin 97.8 Percent Blood Gas 37.0 Temperature Blood Gas 20 Actual Respiration Rat e Blood Gas ROOM AIR Modality FiO2 21.0 Blood Gas KHAN D RN Critical Value Read Back Blood Gas KB Notified Whom Blood Gas 11/15/2018 5:05: Notified Time 06 AM Bedside Glucose 255 H 230 H Sodium Level 146 H Potassium Level 2.8 *L Chloride Level 125 H Carbon Dioxide 7 *L Level Anion Gap 14 #H Blood Urea 5 L Nitrogen Creatinine 0.73 Est Glomerular > 60 Filtrat Rate mL/min Glucose Level 228 H Calcium Level 9.0 Phosphorus 0.6 L Level Magnesium Level 1.9 Test 11/15/18 06:21 11/15/18 06:58 11/15/18 07:14 11/15/18 08:34 White Blood 16.9 H Count Red Blood Count 4.66 Hemoglobin 13.6 Hematocrit 38.8 Mean 83.3 Corpuscular Volume Mean 29.2 Corpuscular Hemoglobin Mean 35.1 Corpuscular Hemoglobin Conc ent Red Cell 14.8 H Distribution Width Platelet Count 366 Mean Platelet 10.3 Volume Immature 1.000 H Granulocytes % Neutrophils % 74.6 Lymphocytes % 10.4 L Monocytes % 13.5 H Eosinophils % 0.1 Basophils % 0.4 Nucleated Red 0.0 Blood Cells % Immature 0.170 H Granulocytes # Neutrophils # 12.6 H Lymphocytes # 1.8 Monocytes # 2.3 H Eosinophils # 0.0 Basophils # 0.1 Nucleated Red 0.0 Blood Cells # Bedside Glucose 203 179 Lactic Acid 1.1 Level Subjective 24 Hr Interval Summary Free Text/Dictation Subjective: feels better, wants to know when she can eat Objective: General: A&O x3, answering questions appropriately, lethargic HEENT: NC/ AT. PERRL. EOM intact Neck: supple CVS: S1, S2, RRR. no murmurs. no pain on chest wall palpation Lungs: CTA b/l. no wheezing or rhonchi Abd: soft, nontender, +BS Ext: moving all extremities skin: no rashes, multiple tattoos assessment and plan: 28-year-old female with a hx of DM, unclear type who presented with abd pain and nausea and managed as follows: 1. diabetic ketoacidosis: -recurrent -continue DKA protocol -endocrinology following, will defer to mgt -will need counselling when stable re: compliance #2 Anion gap metabolic acidosis: -Secondary to diabetic ketoacidosis. - At the current time we will continue DKA protocol. -Nephrology following, will defer to mgt #3 diabetes mellitus -type 2? -Hemoglobin A1c is 12.9. -Patient had reported to admitting MD reports that she takes metformin at home and is noncompliant with her insulin. -mgt per Endo #4 Hypophosphatemia -repleted per nephro #5. Leucocytosis -likely reactive, sent urine for culture DVT GI prophylaxis: SCDs, Protonix CC time >40mins Exam/Review of Systems Vital Signs Vitals Vital Signs Date Temp Pulse Resp B/P (MAP) Pulse Ox O2 O2 Flow FiO2 Time Delivery Rate 11/15/18 98 08:00 11/15/18 21 106/74 99 Nasal 2.0 07:00 (85) Cannula 11/15/18 27 05:15 11/15/18 99.5 04:00 Intake and Output 11/14/18 11/14/18 11/15/18 1515:00 23:00 07:00 IntakeIntake Total 2136.2 ml 1181.7 ml OutputOutput Total 1600 ml BalanceBalance 2136.2 ml -418.3 ml Medications Medications Current Medications Potassium Chloride/Sodium Chloride 1,000 ml @ 0 mls/hr Q0M IV Last administered on 11/14/18at 22:07; Admin Dose 100 MLS/HR; Start 11/14/18 at 18:32 Potassium Chloride/Dextrose/ Sod Cl 1,000 ml @ 0 mls/hr Q0M IV Last administered on 11/14/18at 22:06; Admin Dose 150 MLS/HR; Start 11/14/18 at 18:32 Potassium Chloride/Sodium Chloride 1,000 ml @ 0 mls/hr Q0M IV Last administered on 11/15/18at 02:32; Admin Dose 300 MLS/HR; Start 11/14/18 at 18:32 Potassium Chloride/Dextrose/ Sod Cl 1,000 ml @ 0 mls/hr Q0M IV Last administered on 11/14/18at 21:59; Admin Dose 150 MLS/HR; Start 11/14/18 at 18:32 Sodium Chloride 1,000 ml @ 0 mls/hr Q0M IV ; Start 11/14/18 at 18:32 Dextrose/Sodium Chloride 1,000 ml @ 0 mls/hr Q0M IV ; Start 11/14/18 at 18:32 Insulin Human Regular 100 unit/ Sodium Chloride 101 ml @ 8.18 mls/hr ER DKA PROTOCOL IV Last administered on 11/15/18at 08:33; Admin Dose 8.18 MLS/HR; Start 11/14/18 at 19:00 Miscellaneous Information (* Miscellaneous Pharmacy Order) HYPOGLYCEMIA TREATMENT HYPOGLYCEM PROTOCOL PRN XX HYPOGLYCEMIA (BS<70); Start 11/14/18 at 19:00 Dextrose (D50w Syringe) 50 ml Q15M PRN IV DECREASED GLUCOSE; Start 11/14/18 at 19:00 Dextrose (D50w Syringe) 25 ml Q15M PRN IV DECREASED GLUCOSE; Start 11/14/18 at 19:00 Ondansetron HCl (Zofran Inj) 4 mg Q6H PRN IV NAUSEA AND/OR VOMITING; Start 11/14/18 at 20:30 Albuterol (Proventil 0.083% (Neb)) 2.5 mg Q2H RESP THERAPY PRN NEB SHORTNESS OF BREATH; Start 11/14/18 at 20:30 Ipratropium [place] (Atrovent 0.02% (Neb)) 0.5 mg Q2H RESP THERAPY PRN NEB SHORTNESS OF BREATH; Start 11/14/18 at 20:30 Acetaminophen (Tylenol Liquid) 650 mg Q6H PRN PO PAIN LEVEL 1-3 OR FEVER; Start 11/14/18 at 20:30 Morphine Sulfate (morphine) 1 mg Q4H PRN IV PAIN LEVEL 7-10; Start 11/14/18 at 20:30 Pantoprazole (Protonix Iv) 40 mg DAILY@06 IV Last administered on 11/15/18at 05:31; Admin Dose 40 MG; Start 11/15/18 at 06:00 Heparin Sodium (Porcine) (Heparin (5000 Units/1ml)) 5,000 unit Q8 SC Last administered on 11/15/18at 05:34; Admin Dose 5,000 UNIT; Start 11/14/18 at 22:00 Guaifenesin/ Codeine Phosphate (Robitussin Ac Liquid Cup) 5 ml Q4H PRN PO COUGH; Start 11/15/18 at 01:30 Levalbuterol (Xopenex Neb) 1.25 mg Q4H RESP THERAPY PRN HHN WHEEZING AND RESP DISTRESS Last administered on 11/15/18at 01:27; Admin Dose 1.25 MG; Start 11/15/18 at 01:30 Potassium Chloride 40 meq/ Sodium Chloride 1,000 ml @ 0 mls/hr Q0M IV Last administered on 11/15/18at 04:35; Admin Dose 250 MLS/HR; Start 11/15/18 at 04:30 Potassium Phosphate 30 mm/ Sodium Chloride 260 ml @ 65 mls/hr ONCE ONCE IVPB ; Start 11/15/18 at 10:00; Stop 11/15/18 at 13:59 BALA BERNAL Nov 15, 2018 09:16
[2018-11-15] MEDS ORDERED: POTASSIUM PHOSPHATE 30 MM in SOD CHLORIDE 0.9% 250 ML IVPB ONE (10:00)
--- NOTE | 2018-11-15 14:05 | CONS ---
Date/Time of Note Date/Time of Note DATE: 11/15/18 TIME: 13:56 Assessment/Plan Assessment/Plan Problems: (1) Diabetic ketoacidosis Status: Acute Comment: Pt. should be placed back on DKA protocol and remain on this until AG closed AND CO2 > 18. Mild elevation in sodium will fix itself w/ hydration. Replace K and P as indicated. Qualifiers: Qualified Codes: E10.10 - Type 1 diabetes mellitus with ketoacidosis without coma (2) Type 1 diabetes mellitus with hyperglycemia Status: Chronic Comment: Initiate lantus 24 units tonight so that when insulin drip turned off, pt. can continue on basal insulin. Once starts diet, will need to be on Novolog 10 units plus Alg 1 correctional scale qac. There seems to be confusion about this patient's type of diabetes. Despite antibody negativity 1 1/2 y. ago, I am confident that this is T1DM. Will check c-peptide. Pt. should be d/c'ed on multi-dose insulin therapy and should be educated about importance of adherence. Result Diagram: 11/15/18 0621 11/15/18 1026 Results 24hrs Laboratory Tests Test 11/14/18 17:26 11/14/18 18:11 11/14/18 18:19 11/14/18 18:49 Blood Gas Blood venous Specimen Source Arterial Blood 11/14/2018 6:19: Date Drawn 07 PM Arterial Blood OTHER Gas Puncture Site Hayden Test N/A Venous Blood pH 6.990 *L Venous Blood 24.2 L pCO2 (Temp Corrected ) Venous Blood 26.5 pO2 (Temp Corrected ) Venous Blood 5.7 L HCO3 Venous Blood 51.5 L Oxygen Saturation Venous Blood -24.6 L Base Excess Venous Blood 17.3 Total Hemoglobin Venous Blood 51.3 Oxyhemoglobin Venous Blood 0.2 Methemoglobin Blood Gas A-a 94.3 O2 Differential Carboxyhemoglob 0.2 in Blood Gas 37.0 Temperature Blood Gas ROOM AIR Modality FiO2 21.0 Blood Gas ROLLY Monae Critical Value Read Back Blood Gas MDA Notified Whom Blood Gas 11/14/2018 6:22: Notified Time 53 PM Bedside Glucose 334 H White Blood 16.5 #H Count Red Blood Count 5.48 #H Hemoglobin 15.8 # Hematocrit 48.0 #H Mean 87.6 Corpuscular Volume Mean 28.8 L Corpuscular Hemoglobin Mean 32.9 Corpuscular Hemoglobin Conc ent Red Cell 14.6 H Distribution Width Platelet Count 400 # Mean Platelet 10.8 H Volume Immature 1.400 H Granulocytes % Neutrophils % 72.7 Lymphocytes % 13.6 L Monocytes % 11.3 H Eosinophils % 0.1 Basophils % 0.9 Nucleated Red 0.0 Blood Cells % Immature 0.230 H Granulocytes # Neutrophils # 12.0 H Lymphocytes # 2.3 Monocytes # 1.9 H Eosinophils # 0.0 Basophils # 0.2 H Nucleated Red 0.0 Blood Cells # Sodium Level 140 Potassium Level 3.5 Chloride Level 110 Carbon Dioxide 6 *L Level Anion Gap 24 H Blood Urea 9 Nitrogen Creatinine 0.92 Est Glomerular > 60 Filtrat Rate mL/min Glucose Level 388 H Hemoglobin A1c 12.9 H Calcium Level 9.3 Phosphorus 3.6 Level Magnesium Level 2.2 Total Bilirubin 0.1 L Direct 0.00 Bilirubin Indirect 0.1 Bilirubin Aspartate Amino 36 Transf (AST/SGO T) Alanine 43 Aminotransferas e (ALT/SGPT) Alkaline 158 H Phosphatase Total Protein 8.9 H Albumin 5.1 H Globulin 3.80 H Albumin/Globuli 1.34 n Ratio Urine Color YELLOW Urine Clarity SLIGHTLY CLOUD Y A Urine pH 5.0 Urine Specific 1.017 [place] Urine Ketones 2+ H Urine Nitrite NEGATIVE Urine Bilirubin NEGATIVE Urine NEGATIVE Urobilinogen Urine Leukocyte TRACE A Esterase Urine 1 Microscopic RBC Urine 2 Microscopic WBC Urine Squamous FEW Epithelial Cell s Urine Bacteria FEW A Urine Granular FEW A Casts Urine 2+ H Hemoglobin Urine Glucose 3+ H Urine Total 2+ H Protein POC Beta HCG, NEGATIVE Qualitative Test 11/14/18 19:16 11/14/18 20:23 11/14/18 20:25 11/14/18 20:32 Bedside Glucose 361 H 295 H Sodium Level 146 H Potassium Level 3.2 L Chloride Level 113 H Carbon Dioxide < 5 *L Level Anion Gap 28 H Blood Urea 9 Nitrogen Creatinine 0.70 Est Glomerular > 60 Filtrat Rate mL/min Glucose Level 305 H Calcium Level 8.2 L Phosphorus 2.3 #L Level Magnesium Level 2.0 Blood Gas Blood venous Specimen Source Arterial Blood 11/14/2018 8:20 Date Drawn :55 PM Arterial Blood VENOUS LINE Gas Puncture Site Hayden Test N/A Venous Blood pH 6.961 *L Venous Blood 27.0 L pCO2 (Temp Corrected ) Venous Blood 20.8 L pO2 (Temp Corrected ) Venous Blood 5.9 L HCO3 Venous Blood 34.2 L Oxygen Saturation Venous Blood -25.0 L Base Excess Venous Blood 14.9 Total Hemoglobin Venous Blood 34.0 Oxyhemoglobin Venous Blood 0.5 Methemoglobin Carboxyhemoglob 0.1 in Blood Gas 37.0 Temperature Blood Gas 20 Actual Respiration Rat e Blood Gas ROOM AIR Modality FiO2 21.0 Blood Gas [facility] Critical Value KAITLIN MONTELONGO Read Back Blood Gas Notified Whom Blood Gas 11/14/2018 8:27 Notified Time :50 PM Test 11/14/18 21:47 11/14/18 22:08 11/14/18 22:32 11/14/18 22:52 Bedside Glucose 232 H 249 H Sodium Level 146 H Potassium Level 3.4 L Chloride Level 116 H Carbon Dioxide < 5 *L Level Anion Gap 25 H Blood Urea 8 Nitrogen Creatinine 0.71 Est Glomerular > 60 Filtrat Rate mL/min Glucose Level 232 H Calcium Level 8.3 L Phosphorus 1.4 L Level Magnesium Level 2.1 Blood Gas Blood venous Specimen Source Arterial Blood 11/14/2018 11:10 Date Drawn :18 PM Arterial Blood VENOUS LINE Gas Puncture Site Hayden Test N/A Venous Blood pH 7.030 *L Venous Blood 24.1 L pCO2 (Temp Corrected ) Venous Blood 17.4 L pO2 (Temp Corrected ) Venous Blood 6.2 L HCO3 Venous Blood 32.2 L Oxygen Saturation Venous Blood -23.2 L Base Excess Venous Blood 14.9 Total Hemoglobin Venous Blood 31.9 Oxyhemoglobin Venous Blood 0.6 Methemoglobin Carboxyhemoglob 0.2 in Blood Gas 37.0 Temperature Blood Gas NASAL CANNULA Modality FiO2 28.0 Blood Gas ERIN Mcnally RN Critical Value Read Back Blood Gas MA Notified Whom Blood Gas 11/14/2018 11:58 Notified Time :16 PM Test 11/14/18 23:58 11/15/18 01:07 11/15/18 01:58 11/15/18 02:31 Bedside Glucose 269 H 261 H 248 H Sodium Level 149 H Potassium Level 2.9 *L Chloride Level 121 H Carbon Dioxide 6 *L Level Anion Gap 22 H Blood Urea 6 L Nitrogen Creatinine 0.82 Est Glomerular > 60 Filtrat Rate mL/min Glucose Level 238 H Calcium Level 9.1 Phosphorus 1.3 L Level Magnesium Level 2.1 Test 11/15/18 02:32 11/15/18 03:03 11/15/18 04:02 11/15/18 04:07 Blood Gas Blood arterial Specimen Source Arterial Blood 11/15/2018 2:37: Date Drawn 04 AM Arterial Blood VENOUS LINE Gas Puncture Site Hayden Test N/A Venous Blood pH 7.022 *L Venous Blood 24.6 L pCO2 (Temp Corrected ) Venous Blood 21.5 L pO2 (Temp Corrected ) Venous Blood 6.2 L HCO3 Venous Blood 44.7 L Oxygen Saturation Venous Blood -23.4 L Base Excess Venous Blood 16.6 Total Hemoglobin Venous Blood 44.4 Oxyhemoglobin Venous Blood 0 Methemoglobin Blood Gas A-a 149.1 O2 Differential Carboxyhemoglob 0.7 in Blood Gas 37.0 Temperature Blood Gas 25 Actual Respiration Rat e Blood Gas NASAL CANNULA Modality FiO2 28.0 Blood Gas KHAN,D.R.N. Critical Value Read Back Blood Gas MILEY BURNETT Notified Whom Blood Gas 11/15/2018 2:49: Notified Time 59 AM Bedside Glucose 193 306 H 372 H Test 11/15/18 05:00 11/15/18 05:05 11/15/18 06:02 11/15/18 06:20 Blood Gas Blood arterial Specimen Source Arterial Blood 11/15/2018 4:55: Date Drawn 06 AM Arterial Blood 7.205 *L pH (Temp corrected ) Arterial Blood 13.0 L pCO2 (Temp correct) Arterial Blood 126.0 H pO2 (Temp corrected ) Arterial Blood 5.0 *L HCO3 Arterial Blood -20.2 L Base Excess Arterial Blood 98.3 H Oxygen Saturati on Hayden Test ACCEPTAB Arterial Blood Right Radial Gas Puncture Site Arterial 0.1 Blood Carboxyhe moglobin Arterial Blood 0.4 Methemoglobin Blood Gas A-a 8.2 O2 Differential Oxyhemoglobin 97.8 Percent Blood Gas 37.0 Temperature Blood Gas 20 Actual Respiration Rat e Blood Gas ROOM AIR Modality FiO2 21.0 Blood Gas KHAN D RN Critical Value Read Back Blood Gas KB Notified Whom Blood Gas 11/15/2018 5:05: Notified Time 06 AM Bedside Glucose 255 H 230 H Sodium Level 146 H Potassium Level 2.8 *L Chloride Level 125 H Carbon Dioxide 7 *L Level Anion Gap 14 #H Blood Urea 5 L Nitrogen Creatinine 0.73 Est Glomerular > 60 Filtrat Rate mL/min Glucose Level 228 H Calcium Level 9.0 Phosphorus 0.6 L Level Magnesium Level 1.9 Test 11/15/18 06:21 11/15/18 06:58 11/15/18 07:14 11/15/18 08:34 White Blood 16.9 H Count Red Blood Count 4.66 Hemoglobin 13.6 Hematocrit 38.8 Mean 83.3 Corpuscular Volume Mean 29.2 Corpuscular Hemoglobin Mean 35.1 Corpuscular Hemoglobin Conc ent Red Cell 14.8 H Distribution Width Platelet Count 366 Mean Platelet 10.3 Volume Immature 1.000 H Granulocytes % Neutrophils % 74.6 Lymphocytes % 10.4 L Monocytes % 13.5 H Eosinophils % 0.1 Basophils % 0.4 Nucleated Red 0.0 Blood Cells % Immature 0.170 H Granulocytes # Neutrophils # 12.6 H Lymphocytes # 1.8 Monocytes # 2.3 H Eosinophils # 0.0 Basophils # 0.1 Nucleated Red 0.0 Blood Cells # Bedside Glucose 203 179 Lactic Acid 1.1 Level Test 11/15/18 09:42 11/15/18 10:26 11/15/18 10:50 11/15/18 12:14 Bedside Glucose 205 183 326 H Sodium Level 145 H Potassium Level 2.9 *L Chloride Level 122 H Carbon Dioxide 8 *L Level Anion Gap 15 H Blood Urea 6 L Nitrogen Creatinine 0.70 Est Glomerular > 60 Filtrat Rate mL/min Glucose Level 216 Calcium Level 9.2 Phosphorus 1.3 L Level Magnesium Level 1.9 Test 11/15/18 12:15 11/15/18 13:28 Bedside Glucose 321 H 372 H Consultation Date/Type/Reason Admit Date/Time 11/14/18 @ 1999 Date of Consultation: Nov 15, 2018 Type of Consult Endocrinology Reason for Consultation DKA Requesting Provider: PARISA SUN Hx of Present Illness 28 y/o H F w/ h/o previous admission to [facility] for DKA and at that time presumed to be new onset T1DM. At that time pt. did have (-) triple antibody study for T1DM. C-peptide not checked. Pt. returns last night not taking insulin, only on metformin 500 mg bid. C/o abd. pain, N/V. Found to be in ronal DKA w/ glucose >300 mg/dL, CO2 6, AG open, urine (+) ketones. Profoundly acidotic w/ pH 6.99. Placed on DKA protocol and admitted. Endo consulted. Of note, another physician interfered w/ DKA protocol by changing the IV fluid orders and pt. has had spontaneous increase in glucose back up to > 300 mg/dL. Pt. now back on DKA protocol. Past Medical History Medical History: diabetes Medications Current Medications Potassium Chloride/Sodium Chloride 1,000 ml @ 0 mls/hr Q0M IV Last administered on 11/14/18at 22:07; Admin Dose 100 MLS/HR; Start 11/14/18 at 18:32 Potassium Chloride/Dextrose/ Sod Cl 1,000 ml @ 0 mls/hr Q0M IV Last administered on 11/14/18at 22:06; Admin Dose 150 MLS/HR; Start 11/14/18 at 18:32 Potassium Chloride/Sodium Chloride 1,000 ml @ 0 mls/hr Q0M IV Last administered on 11/15/18at 02:32; Admin Dose 300 MLS/HR; Start 11/14/18 at 18:32 Potassium Chloride/Dextrose/ Sod Cl 1,000 ml @ 0 mls/hr Q0M IV Last administered on 11/14/18at 21:59; Admin Dose 150 MLS/HR; Start 11/14/18 at 18:32 Sodium Chloride 1,000 ml @ 0 mls/hr Q0M IV ; Start 11/14/18 at 18:32 Dextrose/Sodium Chloride 1,000 ml @ 0 mls/hr Q0M IV ; Start 11/14/18 at 18:32 Insulin Human Regular 100 unit/ Sodium Chloride 101 ml @ 8.18 mls/hr ER DKA PROTOCOL IV Last administered on 11/15/18at 08:33; Admin Dose 8.18 MLS/HR; Start 11/14/18 at 19:00 Miscellaneous Information (* Miscellaneous Pharmacy Order) HYPOGLYCEMIA TREATMENT HYPOGLYCEM PROTOCOL PRN XX HYPOGLYCEMIA (BS<70); Start 11/14/18 at 19:00 Dextrose (D50w Syringe) 50 ml Q15M PRN IV DECREASED GLUCOSE; Start 11/14/18 at 19:00 Dextrose (D50w Syringe) 25 ml Q15M PRN IV DECREASED GLUCOSE; Start 11/14/18 at 19:00 Ondansetron HCl (Zofran Inj) 4 mg Q6H PRN IV NAUSEA AND/OR VOMITING; Start 11/14/18 at 20:30 Albuterol (Proventil 0.083% (Neb)) 2.5 mg Q2H RESP THERAPY PRN NEB SHORTNESS OF BREATH; Start 11/14/18 at 20:30 Ipratropium [place] (Atrovent 0.02% (Neb)) 0.5 mg Q2H RESP THERAPY PRN NEB SHORTNESS OF BREATH; Start 11/14/18 at 20:30 Acetaminophen (Tylenol Liquid) 650 mg Q6H PRN PO PAIN LEVEL 1-3 OR FEVER; Start 11/14/18 at 20:30 Morphine Sulfate (morphine) 1 mg Q4H PRN IV PAIN LEVEL 7-10; Start 11/14/18 at 20:30 Pantoprazole (Protonix Iv) 40 mg DAILY@06 IV Last administered on 11/15/18at 05:31; Admin Dose 40 MG; Start 11/15/18 at 06:00 Heparin Sodium (Porcine) (Heparin (5000 Units/1ml)) 5,000 unit Q8 SC Last administered on 11/15/18at 13:29; Admin Dose 5,000 UNIT; Start 11/14/18 at 22:00 Guaifenesin/ Codeine Phosphate (Robitussin Ac Liquid Cup) 5 ml Q4H PRN PO COUGH; Start 11/15/18 at 01:30 Levalbuterol (Xopenex Neb) 1.25 mg Q4H RESP THERAPY PRN HHN WHEEZING AND RESP DISTRESS Last administered on 11/15/18at 01:27; Admin Dose 1.25 MG; Start 11/15/18 at 01:30 Potassium Chloride 40 meq/ Sodium Chloride 1,000 ml @ 0 mls/hr Q0M IV Last administered on 11/15/18at 09:43; Admin Dose 250 MLS/HR; Start 11/15/18 at 04:30 Potassium Phosphate 30 mm/ Sodium Chloride 260 ml @ 65 mls/hr ONCE ONCE IVPB Last administered on 11/15/18at 09:48; Admin Dose 65 MLS/HR; Start 11/15/18 at 10:00; Stop 11/15/18 at 13:59 Insulin Glargine (Lantus) 24 units DAILY@2000 SC ; Start 11/15/18 at 20:00; Status UNV Insulin Aspart (Novolog Insulin Pen) 10 unit WITH MEALS SC ; Start 11/15/18 at 17:35; Status UNV Insulin Aspart (Novolog Insulin Pen) NOVOLOG *MILD* ALGORITHM WITH MEALS BEDTIME SC ; Start 11/15/18 at 17:35; Status UNV Allergies: Coded Allergies: No Known Allergy (Unverified , 11/14/18) Past Surgical History Past Surgical Hx: no surgical history Family History Significant Family History: diabetes (Maternal uncle and multiple cousins) Social History Born in [facility], some college, 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 [employer], , one child Alcohol Use: occasionally Smoking Status: Never smoker Drug Use: none Exam/Review of Systems Vital Signs Vitals Vital Signs Date Temp Pulse Resp B/P (MAP) Pulse Ox O2 O2 Flow FiO2 Time Delivery Rate 11/15/18 86 14 101/77 100 Nasal 13:00 (85) Cannula 11/15/18 98.7 12:00 11/15/18 2.0 12:00 11/15/18 27 05:15 Intake and Output 11/14/18 11/14/18 11/15/18 1515:00 23:00 07:00 IntakeIntake Total 2136.2 ml 1181.7 ml OutputOutput Total 1600 ml BalanceBalance 2136.2 ml -418.3 ml Medications Medications Current Medications Potassium Chloride/Sodium Chloride 1,000 ml @ 0 mls/hr Q0M IV Last administered on 11/14/18at 22:07; Admin Dose 100 MLS/HR; Start 11/14/18 at 18:32 Potassium Chloride/Dextrose/ Sod Cl 1,000 ml @ 0 mls/hr Q0M IV Last administered on 11/14/18at 22:06; Admin Dose 150 MLS/HR; Start 11/14/18 at 18:32 Potassium Chloride/Sodium Chloride 1,000 ml @ 0 mls/hr Q0M IV Last administered on 11/15/18at 02:32; Admin Dose 300 MLS/HR; Start 11/14/18 at 18:32 Potassium Chloride/Dextrose/ Sod Cl 1,000 ml @ 0 mls/hr Q0M IV Last administered on 11/14/18at 21:59; Admin Dose 150 MLS/HR; Start 11/14/18 at 18:32 Sodium Chloride 1,000 ml @ 0 mls/hr Q0M IV ; Start 11/14/18 at 18:32 Dextrose/Sodium Chloride 1,000 ml @ 0 mls/hr Q0M IV ; Start 11/14/18 at 18:32 Insulin Human Regular 100 unit/ Sodium Chloride 101 ml @ 8.18 mls/hr ER DKA PROTOCOL IV Last administered on 11/15/18at 08:33; Admin Dose 8.18 MLS/HR; Start 11/14/18 at 19:00 Miscellaneous Information (* Miscellaneous Pharmacy Order) HYPOGLYCEMIA TREATMENT HYPOGLYCEM PROTOCOL PRN XX HYPOGLYCEMIA (BS<70); Start 11/14/18 at 19:00 Dextrose (D50w Syringe) 50 ml Q15M PRN IV DECREASED GLUCOSE; Start 11/14/18 at 19:00 Dextrose (D50w Syringe) 25 ml Q15M PRN IV DECREASED GLUCOSE; Start 11/14/18 at 19:00 Ondansetron HCl (Zofran Inj) 4 mg Q6H PRN IV NAUSEA AND/OR VOMITING; Start 11/14/18 at 20:30 Albuterol (Proventil 0.083% (Neb)) 2.5 mg Q2H RESP THERAPY PRN NEB SHORTNESS OF BREATH; Start 11/14/18 at 20:30 Ipratropium [place] (Atrovent 0.02% (Neb)) 0.5 mg Q2H RESP THERAPY PRN NEB S HORTNESS OF BREATH; Start 11/14/18 at 20:30 Acetaminophen (Tylenol Liquid) 650 mg Q6H PRN PO PAIN LEVEL 1-3 OR FEVER; Start 11/14/18 at 20:30 Morphine Sulfate (morphine) 1 mg Q4H PRN IV PAIN LEVEL 7-10; Start 11/14/18 at 20:30 Pantoprazole (Protonix Iv) 40 mg DAILY@06 IV Last administered on 11/15/18at 05:31; Admin Dose 40 MG; Start 11/15/18 at 06:00 Heparin Sodium (Porcine) (Heparin (5000 Units/1ml)) 5,000 unit Q8 SC Last administered on 11/15/18at 13:29; Admin Dose 5,000 UNIT; Start 11/14/18 at 22:00 Guaifenesin/ Codeine Phosphate (Robitussin Ac Liquid Cup) 5 ml Q4H PRN PO COUGH; Start 11/15/18 at 01:30 Levalbuterol (Xopenex Neb) 1.25 mg Q4H RESP THERAPY PRN HHN WHEEZING AND RESP DISTRESS Last administered on 11/15/18at 01:27; Admin Dose 1.25 MG; Start 11/15/18 at 01:30 Potassium Chloride 40 meq/ Sodium Chloride 1,000 ml @ 0 mls/hr Q0M IV Last administered on 11/15/18at 09:43; Admin Dose 250 MLS/HR; Start 11/15/18 at 04:30 Potassium Phosphate 30 mm/ Sodium Chloride 260 ml @ 65 mls/hr ONCE ONCE IVPB Last administered on 11/15/18at 09:48; Admin Dose 65 MLS/HR; Start 11/15/18 at 10:00; Stop 11/15/18 at 13:59 Insulin Glargine (Lantus) 24 units DAILY@2000 SC ; Start 11/15/18 at 20:00; Status UNV Insulin Aspart (Novolog Insulin Pen) 10 unit WITH MEALS SC ; Start 11/15/18 at 17:35; Status UNV Insulin Aspart (Novolog Insulin Pen) NOVOLOG *MILD* ALGORITHM WITH MEALS BEDTIME SC ; Start 11/15/18 at 17:35; Status SHALINIV HANNAH COX MD Nov 15, 2018 14:05
--- NOTE | 2018-11-15 14:26 | QN ---
Documentation Comment Addendum to endocrinology consult note: S: pt. reports 1 week of SOB/ELAINE. Last 2 days w/ cough. Yesterday developed N/V, abd. pain. O: see vitals Gen: weak-appearing H F, NAD HEENT: PERRL, OC/OP w/ tacky mucous membranes Neck: no TM, no bruits Lungs: CTA B Heart: RRR, no MCR Abd: soft, NT, ND, (+) BS, no masses Ext: no C/C/E Neuro: intact A: DKA P: after consult written, pt. w/ new ABG showing pH decreased to 6.8. BG continues to be elevated. RN informs pt. has not had insulin drip discontinued, only fluids interrupted. Only explanation is that pt. is not getting her insulin. Request new bag from pharmacy [facility] and monitor closely. HANNAH COX MD Nov 15, 2018 14:26
[2018-11-15] MEDS: D10/0.45% NACL + KCL 40 MEQ 1,000 ML IV SCH (17:24)
[2018-11-15] MEDS ORDERED: INSULIN GLARGINE [LANTus] (100 UNITS/ML) SYG SC SCH (20:00)
[2018-11-15] MEDS: GUAIFENESIN/CODEINE 5ML CUP PO PRN (22:53)
[2018-11-16] VITALS (24 sets, daily range): BP systolic 91–126; BP diastolic 62–93; PULSE 78–105; RESP 12–22
[2018-11-16] MEDS: PANTOPRAZOLE 40 MG INJ IV SCH (05:42)
[2018-11-16] MEDS: HEPARIN 5,000 UNIT/1 ML VIAL SC SCH ×3 (05:43→21:38)
--- NOTE | 2018-11-16 07:49 | PN ---
DATE: 11/16/2018 SUBJECTIVE: The patient remains in serious condition. The patient remains on insulin drip. Continu es to remain on IV fluids. No other acute events noted. OBJECTIVE: VITAL SIGNS: Blood pressure is 97/69, respiration is 14, pulse 92, temperature 98.0. HEENT: Head is normocephalic. NECK: Supple. HEART: Regular rate. LUNGS: Show diminished breath sounds at the base. ABDOMEN: Soft, nontender to palpation without rebound or guarding. EXTREMITIES: Negative for clubbing, cyanosis, edema. DERMATOLOGIC: No rashes. MUSCULOSKELETAL: No joint effusion. NEUROLOGIC: No change in exam. MEDICATIONS: Reviewed. LABORATORY DATA: 11/16/2018 is pending. ASSESSMENT AND PLAN: 1. Hyponatremia, resolved. The patient currently is on hypertonic fluid. We will continue. 2. Hypokalemia, hypophosphatemia. Continue to monitor and replete. 3. Diabetic ketoacidosis. The patient's anion gap is closing, acidemia is improving. Continue curr ent insulin regimen, being managed per endocrinology. 4. Systemic inflammatory response syndrome. Continue to monitor. Dictated By: CAROLYN LINDSEY DO NR/NTS Conf#: [id number] DID#: [id number] CC: HANNAH COX MD; PARISA SUN MD;*End*
[2018-11-16] MEDS: INSULIN REGULAR, HUMAN 100 UNIT in SOD CHLORIDE 0.9% 100 ML IV SCH ×4 (08:24→21:37)
[2018-11-16] MEDS: D10/0.45% NACL + KCL 30 MEQ 1,000 ML IV SCH (08:43)
--- NOTE | 2018-11-16 09:08 | PN ---
Date/Time of Note Date/Time of Note DATE: 11/16/18 TIME: 09:08 Assessment/Plan VTE Prophylaxis Risk score (from Nsg)>0 risk: 4 SCD applied (from Nsg): Yes Pharmacological prophylaxis: heparin Lines/Catheters IV Catheter Type (from Nrs): Peripheral IV Urinary Cath still in place: No Assessment/Plan Hospital Course SUBJECTIVE: Complains of pleuritic chest pain and sore throat. Complains of nausea. OBJECTIVE: Physical Exam General: Adequately build 28 year-old female lying in bed in no apparent distress. HEENT: Normocephalic, atraumatic. Eyes: Anicteric sclerae, conjunctivae clear. ENT: Nasal septum midline, oral mucosa moist. Uvula midline. No tonsillar erythema. Neck supple, no JVD noticed. Respiratory: Bilaterally clear breath sounds. No use of accessory muscles of respiration. No adventitious breath sounds. Cardiovascular: S1, S2 heard. No murmurs or gallops. Abdomen: Soft and nondistended. Minimal epigastric tenderness. Bowel sounds positive in all 4 quadrants. Genitourinary: Deferred. Extremities: No cyanosis, no clubbing, no edema. Peripheral pulses palpable. Neurologic: Cranial nerves II through XII grossly intact. The patient is awake, alert, and oriented. Skin: Normal skin turgor. No skin rashes. Labs & Vitals per chart ASSESSMENT & PLAN 28-year-old female with comorbidities including type 1 diabetes mellitus and obesity who came to the emergency room with chief complaint of right upper quadrant discomfort, dyspnea, cough, and vomiting, who was found to have underlying diabetic ketoacidosis. The patient was admitted to inpatient setting for further treatment and evaluation. 1. Diabetic ketoacidosis. -Continue DKA protocol. -Being followed by endocrinology. 2. Anion gap metabolic acidosis -Secondary to #1. -Management as per #1. 3. Diabetes mellitus type 1. -Hemoglobin A1c 12.9. -Continue management as per endocrinology. 4. SIRS. -Leukocytosis normalized. -Cultures negative so far. -Monitor. 5. Obesity. -BMI 30 kg/m. -Advised weight reduction. 6. Fluids, electrolytes, and nutrition. -N.p.o. -IV fluids as per DKA protocol. 7. DVT prophylaxis. -Subcutaneous heparin. 8. Gastrointestinal prophylaxis (patient in ICU). -PPI. 9. Plan. -Continue DKA protocol. -Await resolution of DKA. The patient was seen in collaboration with Dr. Gonzalez. The plan of care was explained to the patient. Critical care time: 35 minutes. Result Diagram: 11/16/18 0345 11/15/18 2240 Results 24hrs Laboratory Tests Test 11/15/18 09:42 11/15/18 10:26 11/15/18 10:50 11/15/18 12:14 Bedside Glucose 205 183 326 H Sodium Level 145 H Potassium Level 2.9 *L Chloride Level 122 H Carbon Dioxide 8 *L Level Anion Gap 15 H Blood Urea 6 L Nitrogen Creatinine 0.70 Est Glomerular > 60 Filtrat Rate mL/min Glucose Level 216 Calcium Level 9.2 Phosphorus 1.3 L Level Magnesium Level 1.9 Test 11/15/18 12:15 11/15/18 13:28 11/15/18 13:54 11/15/18 14:00 Bedside Glucose 321 H 372 H Sodium Level 142 Potassium Level 3.2 L Chloride Level 119 H Carbon Dioxide 9 *L Level Anion Gap 14 H Blood Urea 5 L Nitrogen Creatinine 0.72 Est Glomerular > 60 Filtrat Rate mL/min Glucose Level 361 H Calcium Level 9.1 Phosphorus 1.8 L Level Magnesium Level 1.9 Urine Color STRAW Urine Clarity CLEAR Urine pH 5.0 Urine Specific 1.014 [place] Urine Ketones 1+ H Urine Nitrite NEGATIVE Urine Bilirubin NEGATIVE Urine NEGATIVE Urobilinogen Urine Leukocyte NEGATIVE Esterase Urine 0 Microscopic RBC Urine 1 Microscopic WBC Urine Bacteria FEW A Urine Mucus FEW A Urine 1+ H Hemoglobin Urine Glucose 3+ H Urine Total NEGATIVE Protein Urine Opiates Negative Screen Urine Negative Barbiturates Urine Negative Amphetamines Screen Urine Negative Benzodiazepines Screen Urine Cocaine Negative Screen Urine Negative Cannabinoids Test 11/15/18 14:32 11/15/18 15:41 11/15/18 16:49 11/15/18 17:39 Blood Gas Blood venous Specimen Source Arterial Blood 11/15/2018 1:55: Date Drawn 02 PM Arterial Blood VENOUS LINE Gas Puncture Site [place]den Test N/A Venous Blood pH 6.808 *L Venous Blood 42.2 pCO2 (Temp Corrected ) Venous Blood 44.8 H pO2 (Temp Corrected ) Venous Blood 6.5 L HCO3 Venous Blood 74.2 Oxygen Saturation Venous Blood -28.0 L Base Excess Venous Blood 14.9 Total Hemoglobin Venous Blood 73.7 Oxyhemoglobin Venous Blood 0.3 Methemoglobin Carboxyhemoglob 0.4 in Blood Gas 37.0 Temperature Blood Gas NASAL CANNULA Modality FiO2 27.0 Blood Gas PKEM RN Critical Value Read Back Blood Gas TM Notified Whom Blood Gas 11/15/2018 2:04: Notified Time 24 PM Bedside Glucose 274 H 255 H 259 H 268 H Test 11/15/18 17:41 11/15/18 18:32 11/15/18 19:29 11/15/18 20:24 Sodium Level 142 Potassium Level 2.9 *L Chloride Level 120 H Carbon Dioxide 9 *L Level Anion Gap 13 Blood Urea 4 L Nitrogen Creatinine 0.64 Est Glomerular > 60 Filtrat Rate mL/min Glucose Level 281 H Calcium Level 9.0 Phosphorus 1.3 L Level Magnesium Level 1.9 Blood Gas Blood venous Specimen Source Arterial Blood 11/15/2018 8:30: Date Drawn 32 PM Arterial Blood VENOUS LINE Gas Puncture Site [place] Test N/A Venous Blood pH 7.233 L Venous Blood 27.5 L pCO2 (Temp Corrected ) Venous Blood 30.4 H pO2 (Temp Corrected ) Venous Blood 11.3 L HCO3 Venous Blood 69.8 Oxygen Saturation Venous Blood -14.5 L Base Excess Venous Blood 14.3 Total Hemoglobin Venous Blood 69.2 Oxyhemoglobin Venous Blood 0.2 Methemoglobin Carboxyhemoglob 0.7 in Blood Gas 37.0 Temperature Blood Gas NASAL CANNULA Modality FiO2 27.0 Blood Gas UP Notified Whom Blood Gas 11/15/2018 8:47: Notified Time 54 PM Bedside Glucose 302 H 264 H Test 11/15/18 21:37 11/15/18 22:32 11/15/18 22:40 11/15/18 22:46 Bedside Glucose 271 H 294 H Blood Gas Blood venous Specimen Source Arterial Blood 11/15/2018 11:20 Date Drawn :28 PM Arterial Blood VENOUS LINE Gas Puncture Site [place] Test N/A Venous Blood pH 7.271 L Venous Blood 25.6 L pCO2 (Temp Corrected ) Venous Blood 27.8 pO2 (Temp Corrected ) Venous Blood 11.5 L HCO3 Venous Blood 69.0 Oxygen Saturation Venous Blood -13.6 L Base Excess Venous Blood 14.0 Total Hemoglobin Venous Blood 68.4 Oxyhemoglobin Venous Blood 0.2 Methemoglobin Carboxyhemoglob 0.7 in Blood Gas 37.0 Temperature Blood Gas NASAL CANNULA Modality FiO2 27.0 Blood Gas UP Notified Whom Blood Gas 11/15/2018 11:31 Notified Time :00 PM Sodium Level 140 Potassium Level 4.0 Chloride Level 118 H Carbon Dioxide 10 L Level Anion Gap 12 Blood Urea 4 L Nitrogen Creatinine 0.57 Est Glomerular > 60 Filtrat Rate mL/min Glucose Level 287 H Calcium Level 9.0 Phosphorus 0.9 L Level Magnesium Level 1.8 Test 11/15/18 23:42 11/16/18 00:32 11/16/18 01:35 11/16/18 02:40 Bedside Glucose 294 H 300 H 192 315 H Test 11/16/18 03:36 11/16/18 03:45 11/16/18 04:40 11/16/18 05:00 Bedside Glucose 216 232 H White Blood 8.5 # Count Red Blood Count 4.11 L Hemoglobin 12.1 Hematocrit 33.5 L Mean 81.5 L Corpuscular Volume Mean 29.4 Corpuscular Hemoglobin Mean 36.1 Corpuscular Hemoglobin Conc ent Red Cell 14.8 H Distribution Width Platelet Count 309 Mean Platelet 10.6 H Volume Immature 0.600 H Granulocytes % Neutrophils % 56.1 Lymphocytes % 26.7 Monocytes % 12.2 H Eosinophils % 3.8 Basophils % 0.6 Nucleated Red 0.0 Blood Cells % Immature 0.050 H Granulocytes # Neutrophils # 4.8 Lymphocytes # 2.3 Monocytes # 1.0 H Eosinophils # 0.3 Basophils # 0.1 Nucleated Red 0.0 Blood Cells # Sodium Level 146 H Potassium Level 2.8 *L Chloride Level 119 H Carbon Dioxide 11 L Level Anion Gap 16 H Blood Urea 4 L Nitrogen Creatinine 0.56 Est Glomerular > 60 Filtrat Rate mL/min Glucose Level 215 Calcium Level 8.8 Blood Gas Blood venous Specimen Source Arterial Blood 11/16/2018 4:50 Date Drawn :18 AM Arterial Blood VENOUS LINE Gas Puncture Site [place]den Test N/A Venous Blood pH 7.300 L Venous Blood 23.7 L pCO2 (Temp Corrected ) Venous Blood 56.3 H pO2 (Temp Corrected ) Venous Blood 11.4 L HCO3 Venous Blood 91.4 H Oxygen Saturation Venous Blood -13.2 L Base Excess Venous Blood 12.2 Total Hemoglobin Venous Blood 91.1 Oxyhemoglobin Venous Blood 0.2 Methemoglobin Carboxyhemoglob 0.1 in Blood Gas 37.0 Temperature Blood Gas ROOM AIR Modality FiO2 21.0 Blood Gas UP Notified Whom Blood Gas 11/16/2018 5:08 Notified Time :09 AM Test 11/16/18 05:40 11/16/18 06:37 11/16/18 08:20 Bedside Glucose 265 H 291 H 320 H Exam/Review of Systems Vital Signs Vitals Vital Signs Date Temp Pulse Resp B/P (MAP) Pulse Ox O2 O2 Flow FiO2 Time Delivery Rate 11/16/18 80 08:00 11/16/18 15 98/70 (79) 100 Room Air 06:00 11/16/18 98.0 04:00 11/16/18 2.0 27 02:24 Intake and Output 11/15/18 11/15/18 11/16/18 1515:00 23:00 07:00 IntakeIntake Total 2064.8 ml 1240.5 ml 48.6 ml OutputOutput Total 400 ml 1330 ml 50 ml BalanceBalance 1664.8 ml -89.5 ml -1.4 ml Medications Medications Current Medications Potassium Chloride/Sodium Chloride 1,000 ml @ 0 mls/hr Q0M IV Last administered on 11/14/18at 22:07; Admin Dose 100 MLS/HR; Start 11/14/18 at 18:32 Potassium Chloride/Dextrose/ Sod Cl 1,000 ml @ 0 mls/hr Q0M IV Last administered on 11/15/18at 17:24; Admin Dose 150 MLS/HR; Start 11/14/18 at 18:32 Potassium Chloride/Sodium Chloride 1,000 ml @ 0 mls/hr Q0M IV Last administered on 11/15/18at 02:32; Admin Dose 300 MLS/HR; Start 11/14/18 at 18:32 Potassium Chloride/Dextrose/ Sod Cl 1,000 ml @ 0 mls/hr Q0M IV Last administered on 11/16/18at 08:43; Admin Dose 150 MLS/HR; Start 11/14/18 at 18:32 Sodium Chloride 1,000 ml @ 0 mls/hr Q0M IV ; Start 11/14/18 at 18:32 Dextrose/Sodium Chloride 1,000 ml @ 0 mls/hr Q0M IV ; Start 11/14/18 at 18:32 Insulin Human Regular 100 unit/ Sodium Chloride 101 ml @ 8.18 mls/hr ER DKA PROTOCOL IV Last administered on 11/16/18at 08:24; Admin Dose 8.18 MLS/HR; Start 11/14/18 at 19:00 Miscellaneous Information (* Miscellaneous Pharmacy Order) HYPOGLYCEMIA TREATMENT HYPOGLYCEM PROTOCOL PRN XX HYPOGLYCEMIA (BS<70); Start 11/14/18 at 19:00 Dextrose (D50w Syringe) 50 ml Q15M PRN IV DECREASED GLUCOSE; Start 11/14/18 at 19:00 Dextrose (D50w Syringe) 25 ml Q15M PRN IV DECREASED GLUCOSE; Start 11/14/18 at 19:00 Ondansetron HCl (Zofran Inj) 4 mg Q6H PRN IV NAUSEA AND/OR VOMITING; Start 11/14/18 at 20:30 Albuterol (Proventil 0.083% (Neb)) 2.5 mg Q2H RESP THERAPY PRN NEB SHORTNESS OF BREATH; Start 11/14/18 at 20:30 Ipratropium [place] (Atrovent 0.02% (Neb)) 0.5 mg Q2H RESP THERAPY PRN NEB SHORTNESS OF BREATH; Start 11/14/18 at 20:30 Acetaminophen (Tylenol Liquid) 650 mg Q6H PRN PO PAIN LEVEL 1-3 OR FEVER; Start 11/14/18 at 20:30 Morphine Sulfate (morphine) 1 mg Q4H PRN IV PAIN LEVEL 7-10; Start 11/14/18 at 20:30 Pantoprazole (Protonix Iv) 40 mg DAILY@06 IV Last administered on 11/16/18at 05:42; Admin Dose 40 MG; Start 11/15/18 at 06:00 Heparin Sodium (Porcine) (Heparin (5000 Units/1ml)) 5,000 unit Q8 SC Last administered on 11/16/18at 05:43; Admin Dose 5,000 UNIT; Start 11/14/18 at 22:00 Guaifenesin/ Codeine Phosphate (Robitussin Ac Liquid Cup) 5 ml Q4H PRN PO COUGH Last administered on 11/15/18at 22:53; Admin Dose 5 ML; Start 11/15/18 at 01:30 Levalbuterol (Xopenex Neb) 1.25 mg Q4H RESP THERAPY PRN HHN WHEEZING AND RESP DISTRESS Last administered on 11/15/18at 01:27; Admin Dose 1.25 MG; Start 11/15/18 at 01:30 Potassium Chloride 40 meq/ Sodium Chloride 1,000 ml @ 0 mls/hr Q0M IV Last administered on 11/15/18at 17:25; Admin Dose 100 MLS/HR; Start 11/15/18 at 04:30 Insulin Glargine (Lantus) 24 units DAILY@2000 SC ; Start 11/15/18 at 20:00 Insulin Aspart (Novolog Insulin Pen) 10 unit WITH MEALS SC ; Start 11/15/18 at 17:35; Status UNV Insulin Aspart (Novolog Insulin Pen) NOVOLOG *MILD* ALGORITHM WITH MEALS BEDTIME SC ; Start 11/15/18 at 17:35; Status UNV IRINA ROY NP Nov 16, 2018 09:08
[2018-11-16] MEDS ORDERED: POTASSIUM PHOSPHATE 15 MM in SOD CHLORIDE 0.9% 250 ML IVPB ONE (13:30)
[2018-11-16] MEDS: POTASSIUM CHLORIDE 40 MEQ in SOD CHLORIDE 0.45% 1,000 ML IV SCH (14:17)
[2018-11-16] MEDS: D10/0.45% NACL + KCL 40 MEQ 1,000 ML IV SCH ×2 (14:21→20:27)
--- NOTE | 2018-11-16 15:34 | CONS ---
Date/Time of Note Date/Time of Note DATE: 11/16/18 TIME: 15:24 Assessment/Plan Assessment/Plan Hospital Course Type 1 DM -f/u c peptide level -bicarb and FS readings slowly improving -repeat VBG and CMP -continue insulin drip -replete K and phosphate Result Diagram: 11/16/18 0345 11/16/18 0345 Results 24hrs Laboratory Tests Test 11/15/18 15:41 11/15/18 16:49 11/15/18 17:39 11/15/18 17:41 Bedside Glucose 255 H 259 H 268 H Sodium Level 142 Potassium Level 2.9 *L Chloride Level 120 H Carbon Dioxide 9 *L Level Anion Gap 13 Blood Urea 4 L Nitrogen Creatinine 0.64 Est Glomerular > 60 Filtrat Rate mL/min Glucose Level 281 H Calcium Level 9.0 Phosphorus Level 1.3 L Magnesium Level 1.9 Test 11/15/18 18:32 11/15/18 19:29 11/15/18 20:24 11/15/18 21:37 Blood Gas Blood venous Specimen Source Arterial Blood 11/15/2018 8:30: Date Drawn 32 PM Arterial Blood VENOUS LINE Gas Puncture Site [place] Test N/A Venous Blood pH 7.233 L Venous Blood 27.5 L pCO2 (Temp Corrected) Venous Blood pO2 30.4 H (Temp Corrected) Venous Blood 11.3 L HCO3 Venous Blood 69.8 Oxygen Saturation Venous Blood -14.5 L Base Excess Venous Blood 14.3 Total Hemoglobin Venous Blood 69.2 Oxyhemoglobin Venous Blood 0.2 Methemoglobin Carboxyhemoglobi 0.7 n Blood Gas 37.0 Temperature Blood Gas NASAL CANNULA Modality FiO2 27.0 Blood Gas UP Notified Whom Blood Gas 11/15/2018 8:47: Notified Time 54 PM Bedside Glucose 302 H 264 H 271 H Test 11/15/18 22:32 11/15/18 22:40 11/15/18 22:46 11/15/18 23:42 Blood Gas Blood venous Specimen Source Arterial Blood 11/15/2018 11:20 Date Drawn :28 PM Arterial Blood VENOUS LINE Gas Puncture Site [place] Test N/A Venous Blood pH 7.271 L Venous Blood 25.6 L pCO2 (Temp Corrected) Venous Blood pO2 27.8 (Temp Corrected) Venous Blood 11.5 L HCO3 Venous Blood 69.0 Oxygen Saturation Venous Blood -13.6 L Base Excess Venous Blood 14.0 Total Hemoglobin Venous Blood 68.4 Oxyhemoglobin Venous Blood 0.2 Methemoglobin Carboxyhemoglobi 0.7 n Blood Gas 37.0 Temperature Blood Gas NASAL CANNULA Modality FiO2 27.0 Blood Gas UP Notified Whom Blood Gas 11/15/2018 11:31 Notified Time :00 PM Sodium Level 140 Potassium Level 4.0 Chloride Level 118 H Carbon Dioxide 10 L Level Anion Gap 12 Blood Urea 4 L Nitrogen Creatinine 0.57 Est Glomerular > 60 Filtrat Rate mL/min Glucose Level 287 H Calcium Level 9.0 Phosphorus Level 0.9 L Magnesium Level 1.8 Bedside Glucose 294 H 294 H Test 11/16/18 00:32 11/16/18 01:35 11/16/18 02:40 11/16/18 03:36 Bedside Glucose 300 H 192 315 H 216 Test 11/16/18 03:45 11/16/18 04:40 11/16/18 05:00 11/16/18 05:40 White Blood 8.5 # Count Red Blood Count 4.11 L Hemoglobin 12.1 Hematocrit 33.5 L Mean Corpuscular 81.5 L Volume Mean Corpuscular 29.4 Hemoglobin Mean Corpuscular 36.1 Hemoglobin Brenda nt Red Cell 14.8 H Distribution Width Platelet Count 309 Mean Platelet 10.6 H Volume Immature 0.600 H Granulocytes % Neutrophils % 56.1 Lymphocytes % 26.7 Monocytes % 12.2 H Eosinophils % 3.8 Basophils % 0.6 Nucleated Red 0.0 Blood Cells % Immature 0.050 H Granulocytes # Neutrophils # 4.8 Lymphocytes # 2.3 Monocytes # 1.0 H Eosinophils # 0.3 Basophils # 0.1 Nucleated Red 0.0 Blood Cells # Sodium Level 146 H Potassium Level 2.8 *L Chloride Level 119 H Carbon Dioxide 11 L Level Anion Gap 16 H Blood Urea 4 L Nitrogen Creatinine 0.56 Est Glomerular > 60 Filtrat Rate mL/min Glucose Level 215 Calcium Level 8.8 Triglycerides 237 H Level Cholesterol 226 H Level LDL Cholesterol, 140 Calculated HDL Cholesterol 39 Cholesterol/HDL 5.7 Ratio Bedside Glucose 232 H 265 H Blood Gas Blood venous Specimen Source Arterial Blood 11/16/2018 4:50: Date Drawn 18 AM Arterial Blood VENOUS LINE Gas Puncture Site [place] Test N/A Venous Blood pH 7.300 L Venous Blood 23.7 L pCO2 (Temp Corrected) Venous Blood pO2 56.3 H (Temp Corrected) Venous Blood 11.4 L HCO3 Venous Blood 91.4 H Oxygen Saturation Venous Blood -13.2 L Base Excess Venous Blood 12.2 Total Hemoglobin Venous Blood 91.1 Oxyhemoglobin Venous Blood 0.2 Methemoglobin Carboxyhemoglobi 0.1 n Blood Gas 37.0 Temperature Blood Gas ROOM AIR Modality FiO2 21.0 Blood Gas UP Notified Whom Blood Gas 11/16/2018 5:08: Notified Time 09 AM Test 11/16/18 06:37 11/16/18 08:20 11/16/18 09:02 11/16/18 09:34 Bedside Glucose 291 H 320 H 307 H Phosphorus Level 0.8 L Magnesium Level 1.8 Test 11/16/18 10:43 11/16/18 11:32 11/16/18 12:56 11/16/18 14:14 Bedside Glucose 317 H 242 H 214 210 Test 11/16/18 15:09 Bedside Glucose 195 Consultation Date/Type/Reason Admit Date/Time Nov 14, 2018 at 19:30 Initial Consult Date 11/15/18 Requesting Provider: PARISA SUN 24 HR Interval Summary Free Text/Dictation Patient seen and examined at bedside. She still has nausea and vomiting, vomited this morning. Exam/Review of Systems Vital Signs Vitals Vital Signs Date Temp Pulse Resp B/P (MAP) Pulse Ox O2 O2 Flow FiO2 Time Delivery Rate 11/16/18 92 12:00 11/16/18 16 104/75 100 Room Air 10:00 (85) 11/16/18 98.3 08:00 11/16/18 2.0 27 02:24 Intake and Output 11/15/18 11/15/18 11/16/18 1515:00 23:00 07:00 IntakeIntake Total 2064.8 ml 1240.5 ml 48.6 ml OutputOutput Total 400 ml 1330 ml 50 ml BalanceBalance 1664.8 ml -89.5 ml -1.4 ml Exam General: Comfortable in appearance, not in acute distress. Skin appropriate for ethnicity Eye: Extraocular movements are intact, Normal conjunctiva. HENT: Normocephalic, atraumatic. Respiratory: Respirations are non-labored, Breath sounds are equal, Symmetrical chest wall expansion. Cardiovascular: S1, S2. No murmur. No LE edema Gastrointestinal: Soft, Non-tender, Non-distended, Normal bowel sounds. Integumentary: Warm to touch. Neurologic: Alert, Oriented. Cognition and Speech: Speech clear and coherent, Functional cognition intact. Psychiatric: Cooperative, Appropriate mood & affect. Medications Medications Current Medications Potassium Chloride/Sodium Chloride 1,000 ml @ 0 mls/hr Q0M IV Last administered on 11/14/18at 22:07; Admin Dose 100 MLS/HR; Start 11/14/18 at 18:32 Potassium Chloride/Dextrose/ Sod Cl 1,000 ml @ 0 mls/hr Q0M IV Last administered on 11/16/18at 14:21; Admin Dose 150 MLS/HR; Start 11/14/18 at 18:32 Potassium Chloride/Sodium Chloride 1,000 ml @ 0 mls/hr Q0M IV Last administered on 11/15/18at 02:32; Admin Dose 300 MLS/HR; Start 11/14/18 at 18:32 Potassium Chloride/Dextrose/ Sod Cl 1,000 ml @ 0 mls/hr Q0M IV Last administered on 11/16/18at 08:43; Admin Dose 150 MLS/HR; Start 11/14/18 at 18:32 Sodium Chloride 1,000 ml @ 0 mls/hr Q0M IV ; Start 11/14/18 at 18:32 Dextrose/Sodium Chloride 1,000 ml @ 0 mls/hr Q0M IV ; Start 11/14/18 at 18:32 Insulin Human Regular 100 unit/ Sodium Chloride 101 ml @ 8.18 mls/hr ER DKA PROTOCOL IV Last administered on 11/16/18at 08:24; Admin Dose 8.18 MLS/HR; Start 11/14/18 at 19:00 Miscellaneous Information (* Miscellaneous Pharmacy Order) HYPOGLYCEMIA TREATMENT HYPOGLYCEM PROTOCOL PRN XX HYPOGLYCEMIA (BS<70); Start 11/14/18 at 19:00 Dextrose (D50w Syringe) 50 ml Q15M PRN IV DECREASED GLUCOSE; Start 11/14/18 at 19:00 Dextrose (D50w Syringe) 25 ml Q15M PRN IV DECREASED GLUCOSE; Start 11/14/18 at 19:00 Ondansetron HCl (Zofran Inj) 4 mg Q6H PRN IV NAUSEA AND/OR VOMITING; Start 11/14/18 at 20:30 Albuterol (Proventil 0.083% (Neb)) 2.5 mg Q2H RESP THERAPY PRN NEB SHORTNESS OF BREATH; Start 11/14/18 at 20:30 Ipratropium [place] (Atrovent 0.02% (Neb)) 0.5 mg Q2H RESP THERAPY PRN NEB SHORTNESS OF BREATH; Start 11/14/18 at 20:30 Acetaminophen (Tylenol Liquid) 650 mg Q6H PRN PO PAIN LEVEL 1-3 OR FEVER; Start 11/14/18 at 20:30 Morphine Sulfate (morphine) 1 mg Q4H PRN IV PAIN LEVEL 7-10; Start 11/14/18 at 20:30 Pantoprazole (Protonix Iv) 40 mg DAILY@06 IV Last administered on 11/16/18at 05:42; Admin Dose 40 MG; Start 11/15/18 at 06:00 Heparin Sodium (Porcine) (Heparin (5000 Units/1ml)) 5,000 unit Q8 SC Last administered on 11/16/18at 05:43; Admin Dose 5,000 UNIT; Start 11/14/18 at 22:00 Guaifenesin/ Codeine Phosphate (Robitussin Ac Liquid Cup) 5 ml Q4H PRN PO COUGH Last administered on 11/15/18at 22:53; Admin Dose 5 ML; Start 11/15/18 at 01:30 Levalbuterol (Xopenex Neb) 1.25 mg Q4H RESP THERAPY PRN HHN WHEEZING AND RESP DISTRESS Last administered on 11/15/18at 01:27; Admin Dose 1.25 MG; Start 11/15/18 at 01:30 Potassium Chloride 40 meq/ Sodium Chloride 1,000 ml @ 0 mls/hr Q0M IV Last administered on 11/16/18at 14:17; Admin Dose 100 MLS/HR; Start 11/15/18 at 04:30 Insulin Glargine (Lantus) 24 units DAILY@2000 SC ; Start 11/15/18 at 20:00 Insulin Aspart (Novolog Insulin Pen) 10 unit WITH MEALS SC ; Start 11/15/18 at 17:35; Status UNV Insulin Aspart (Novolog Insulin Pen) NOVOLOG *MILD* ALGORITHM WITH MEALS BEDTIME SC ; Start 11/15/18 at 17:35; Status UNV Potassium Phosphate 15 mm/ Sodium Chloride 255 ml @ 63.75 mls/ hr ONCE ONCE IVPB ; Start 11/16/18 at 13:30; Stop 11/16/18 at 17:29 JUAN GARDNER MD Nov 16, 2018 15:34
[2018-11-17] VITALS (24 sets, daily range): BP systolic 96–115; BP diastolic 66–85; PULSE 86–152; RESP 13–20
[2018-11-17] MEDS: INSULIN ASPART [NOVOLOG] 3 ML PEN SC SCH ×9 (02:27→20:34)
[2018-11-17] MEDS: PANTOPRAZOLE 40 MG INJ IV SCH (06:24)
[2018-11-17] MEDS: HEPARIN 5,000 UNIT/1 ML VIAL SC SCH ×3 (06:25→21:46)
[2018-11-17] MEDS ORDERED: MAGNESIUM SULFATE 2 GM/50 ML 50 ML IVPB ONE (07:30)
[2018-11-17] MEDS ORDERED: INSULIN ASPART [NOVOLOG] 3 ML PEN SC SCH (07:35)
--- NOTE | 2018-11-17 08:44 | PN ---
DATE: 11/17/2018 SUBJECTIVE: The patient is stable, currently off insulin drip. The patient is receiving Lantus. Fofana gars remain elevated. No other acute events noted. No hemoptysis, hematemesis, hematochezia. OBJECTIVE: VITAL SIGNS: Blood pressure is 101/68, respirations 15, pulse 89, temperature 98.7. HEENT: Head is normocephalic. NECK: Supple. HEART: Regular rate. LUNGS: Show diminished breath sounds at the base. ABDOMEN: Soft, nontender to palpation without rebound or guarding. EXTREMITIES: Negative for clubbing, cyanosis, no edema. DERMATOLOGIC: No rashes. MUSCULOSKELETAL: No joint effusion. NEUROLOGIC: No change in exam. MEDICATIONS: Reviewed. LABORATORY DATA: Sodium 137, potassium 3.1, chloride 112, phosphorus 2.4, magnesium 1.4. White coun t of 8.2, hemoglobin 12.0 and platelet count is 290. ASSESSMENT AND PLAN: 1. Hypernatremia, resolved. Continue to monitor. Continue to encourage free water intake. 2. Hypokalemia, hypophosphatemia. Will replete potassium and phosphate. 3. Hypomagnesemia, replete with magnesium sulfate. 4. Diabetic ketoacidosis. The patient is clinically improved. Anion gap is closed. Continue manag ement per endocrinology. 5. Hyperchloremic metabolic acidosis secondary to IV fluids, DKA. Continue to monitor. 6. SIRS. Continue to monitor. Continue medical management. Dictated By: CAROLYN LINDSEY DO NR/NTS Conf#: [id number] DID#: [id number] CC: HANNAH COX MD; PARISA SUN MD;*EndCC*
--- NOTE | 2018-11-17 09:23 | PN ---
Date/Time of Note Date/Time of Note DATE: 11/17/18 TIME: 09:20 Assessment/Plan VTE Prophylaxis Risk score (from Nsg)>0 risk: 0 SCD applied (from Nsg): Yes Pharmacological prophylaxis: heparin Lines/Catheters IV Catheter Type (from Nrsg): Peripheral IV Urinary Cath still in place: No Assessment/Plan Hospital Course SUBJECTIVE: Denies any chest pain or abdominal pain. Had some nausea earlier. Started on sliding scale insulin after giving Lantus. OBJECTIVE: Physical Exam General: Adequately build 28 year-old female lying in bed in no apparent distress. HEENT: Normocephalic, atraumatic. Eyes: Anicteric sclerae, conjunctivae clear. ENT: Nasal septum midline, oral mucosa moist. Uvula midline. No tonsillar erythema. Neck supple, no JVD noticed. Respiratory: Bilaterally clear breath sounds. No use of accessory muscles of respiration. No adventitious breath sounds. Cardiovascular: S1, S2 heard. No murmurs or gallops. Abdomen: Soft, non-tender, and nondistended. Bowel sounds positive in all 4 quadrants. Genitourinary: Deferred. Extremities: No cyanosis, no clubbing, no edema. Peripheral pulses palpable. Neurologic: Cranial nerves II through XII grossly intact. The patient is awake, alert, and oriented. Skin: Normal skin turgor. No skin rashes. Labs & Vitals per chart ASSESSMENT & PLAN 28-year-old female with comorbidities including type 1 diabetes mellitus and obesity who came to the emergency room with chief complaint of right upper quadrant discomfort, dyspnea, cough, and vomiting, who was found to have underlying diabetic ketoacidosis. The patient was admitted to inpatient setting for further treatment and evaluation. 1. Status post diabetic ketoacidosis. -Status post continue DKA protocol. -Being followed by endocrinology. 2. Anion gap metabolic acidosis -Secondary to #1. -Resolved. 3. Diabetes mellitus type 1 (C-peptide levels pending). -Hemoglobin A1c 12.9. -Continue management as per endocrinology. 4. SIRS. -Leukocytosis normalized. -Cultures negative so far. -Monitor. 5. Obesity. -BMI 30 kg/m. -Advised weight reduction. 6. Fluids, electrolytes, and nutrition. -Carbohydrate controlled diet. 7. DVT prophylaxis. -Subcutaneous heparin. 8. Gastrointestinal prophylaxis (patient in ICU). -PPI. 9. Plan. -Insulin management as per endocrinology. -Replete electrolytes. -May transfer to medical surgical floor once cleared by endocrinology. The patient was seen in collaboration with Dr. Gonzalez. The plan of care was explained to the patient. Critical care time: 35 minutes. Result Diagram: 11/17/18 0445 11/17/18 0445 Results 24hrs Laboratory Tests Test 11/16/18 09:34 11/16/18 10:43 11/16/18 11:32 11/16/18 12:56 Bedside Glucose 307 H 317 H 242 H 214 Test 11/16/18 14:14 11/16/18 15:09 11/16/18 16:24 11/16/18 16:28 Bedside Glucose 210 195 282 H Sodium Level 138 Potassium Level 3.0 L Chloride Level 115 H Carbon Dioxide 14 L Level Anion Gap 9 # Blood Urea 2 L Nitrogen Creatinine 0.55 Est Glomerular > 60 Filtrat Rate mL/min Glucose Level 292 H Calcium Level 8.6 Phosphorus Level 1.3 L Magnesium Level 1.5 L Total Bilirubin 0.5 Direct Bilirubin 0.00 Indirect 0.5 Bilirubin Aspartate Amino 27 Transf (AST/SGOT ) Alanine 34 Aminotransferase (ALT/SGPT) Alkaline 99 Phosphatase Total Protein 6.1 # Albumin 3.4 # Globulin 2.70 Albumin/Globulin 1.25 Ratio Test 11/16/18 17:00 11/16/18 17:36 11/16/18 19:03 11/16/18 20:01 Blood Gas Blood venous Specimen Source Arterial Blood 11/16/2018 4:50: Date Drawn 09 PM Arterial Blood OTHER Gas Puncture Site Hayden Test N/A Venous Blood pH 7.357 Venous Blood 26.9 L pCO2 (Temp Corrected) Venous Blood pO2 37.5 H (Temp Corrected) Venous Blood 14.8 L HCO3 Venous Blood 81.0 H Oxygen Saturation Venous Blood -9.1 L Base Excess Venous Blood 13.3 Total Hemoglobin Venous Blood 80.4 Oxyhemoglobin Venous Blood 0.3 Methemoglobin Carboxyhemoglobi 0.4 n Blood Gas 37.0 Temperature Blood Gas NASAL CANNULA Modality FiO2 27.0 Blood Gas Notified Whom Blood Gas 11/16/2018 5:03: Notified Time 34 PM Bedside Glucose 280 H 272 H 274 H Test 11/16/18 20:20 11/16/18 20:30 11/16/18 21:04 11/16/18 21:58 Sodium Level 138 Potassium Level 3.1 L Chloride Level 112 H Carbon Dioxide 15 L Level Anion Gap 11 Blood Urea < 2 L Nitrogen Creatinine 0.55 Est Glomerular > 60 Filtrat Rate mL/min Glucose Level 261 H Calcium Level 8.4 Blood Gas Blood venous Specimen Source Arterial Blood 11/16/2018 8:30: Date Drawn 37 PM Arterial Blood VENOUS LINE Gas Puncture Site Hayden Test N/A Venous Blood pH 7.383 Venous Blood 24.6 L pCO2 (Temp Corrected) Venous Blood pO2 37.8 H (Temp Corrected) Venous Blood 14.3 L HCO3 Venous Blood 79.8 H Oxygen Saturation Venous Blood -9.0 L Base Excess Venous Blood 12.8 Total Hemoglobin Venous Blood 79.5 Oxyhemoglobin Venous Blood 0.4 Methemoglobin Carboxyhemoglobi 0 n Blood Gas 37.0 Temperature Blood Gas Actual 14 Respiration Rate Blood Gas ROOM AIR Modality FiO2 21.0 Blood Gas MA Notified Whom Blood Gas 11/16/2018 8:46: Notified Time 23 PM Bedside Glucose 270 H 257 H Test 11/16/18 23:17 11/17/18 01:59 11/17/18 04:45 11/17/18 07:41 Bedside Glucose 269 H 236 H 350 H White Blood 8.2 Count Red Blood Count 4.12 L Hemoglobin 12.0 Hematocrit 33.0 L Mean Corpuscular 80.1 L Volume Mean Corpuscular 29.1 Hemoglobin Mean Corpuscular 36.4 Hemoglobin Brenda nt Red Cell 14.9 H Distribution Width Platelet Count 290 Mean Platelet 10.5 H Volume Immature 1.000 H Granulocytes % Neutrophils % 33.6 L Lymphocytes % 48.3 Monocytes % 11.7 H Eosinophils % 4.5 Basophils % 0.9 Nucleated Red 0.0 Blood Cells % Immature 0.080 H Granulocytes # Neutrophils # 2.7 Lymphocytes # 3.9 H Monocytes # 1.0 H Eosinophils # 0.4 Basophils # 0.1 Nucleated Red 0.0 Blood Cells # Sodium Level 137 Potassium Level 3.1 L Chloride Level 112 H Carbon Dioxide 15 L Level Anion Gap 10 Blood Urea < 2 L Nitrogen Creatinine 0.58 Est Glomerular > 60 Filtrat Rate mL/min Glucose Level 277 H Calcium Level 9.1 Phosphorus Level 2.4 #L Magnesium Level 1.4 L Total Bilirubin 0.7 Direct Bilirubin 0.00 Indirect 0.7 Bilirubin Aspartate Amino 35 Transf (AST/SGOT ) Alanine 37 Aminotransferase (ALT/SGPT) Alkaline 101 Phosphatase Total Protein 6.2 Albumin 3.5 Globulin 2.70 Albumin/Globulin 1.29 Ratio Exam/Review of Systems Vital Signs Vitals Vital Signs Date Temp Pulse Resp B/P (MAP) Pulse Ox O2 O2 Flow FiO2 Time Delivery Rate 11/17/18 152 05:01 11/17/18 15 101/68 100 Room Air 03:00 (79) 11/17/18 98.7 00:00 11/16/18 21 20:35 11/16/18 2.0 02:24 Intake and Output 11/16/18 11/16/18 11/17/18 1515:00 23:00 07:00 IntakeIntake Total 2014.8 ml 1176.7 ml OutputOutput Total 1160 ml 1500 ml 800 ml BalanceBalance 854.8 ml -323.3 ml -800 ml Medications Medications Current Medications Sodium Chloride 1,000 ml @ 0 mls/hr Q0M IV ; Start 11/14/18 at 18:32 Miscellaneous Information (* Miscellaneous Pharmacy Order) HYPOGLYCEMIA TREATMENT HYPOGLYCEM PROTOCOL PRN XX HYPOGLYCEMIA (BS<70); Start 11/14/18 at 19:00 Dextrose (D50w Syringe) 50 ml Q15M PRN IV DECREASED GLUCOSE; Start 11/14/18 at 19:00 Dextrose (D50w Syringe) 25 ml Q15M PRN IV DECREASED GLUCOSE; Start 11/14/18 at 19:00 Ondansetron HCl (Zofran Inj) 4 mg Q6H PRN IV NAUSEA AND/OR VOMITING Last administered on 11/17/18at 07:47; Admin Dose 4 MG; Start 11/14/18 at 20:30 Albuterol (Proventil 0.083% (Neb)) 2.5 mg Q2H RESP THERAPY PRN NEB SHORTNESS OF BREATH; Start 11/14/18 at 20:30 Ipratropium [place] (Atrovent 0.02% (Neb)) 0.5 mg Q2H RESP THERAPY PRN NEB SHORTNESS OF BREATH; Start 11/14/18 at 20:30 Acetaminophen (Tylenol Liquid) 650 mg Q6H PRN PO PAIN LEVEL 1-3 OR FEVER; Start 11/14/18 at 20:30 Morphine Sulfate (morphine) 1 mg Q4H PRN IV PAIN LEVEL 7-10; Start 11/14/18 at 20:30 Pantoprazole (Protonix Iv) 40 mg DAILY@06 IV Last administered on 11/17/18 06:24; Admin Dose 40 MG; Start 11/15/18 at 06:00 Heparin Sodium (Porcine) (Heparin (5000 Units/1ml)) 5,000 unit Q8 SC Last administered on 11/17/18 06:25; Admin Dose 5,000 UNIT; Start 11/14/18 at 22:00 Guaifenesin/ Codeine Phosphate (Robitussin Ac Liquid Cup) 5 ml Q4H PRN PO COUGH Last administered on 11/15/18 22:53; Admin Dose 5 ML; Start 11/15/18 at 01:30 Levalbuterol (Xopenex Neb) 1.25 mg Q4H RESP THERAPY PRN HHN WHEEZING AND RESP DISTRESS Last administered on 11/15/18 01:27; Admin Dose 1.25 MG; Start 11/15/18 at 01:30 Insulin Glargine (Lantus) 24 units DAILY@2000 SC Last administered on 11/16/18 20:07; Admin Dose 24 UNITS; Start 11/15/18 at 20:00 Insulin Aspart (Novolog Insulin Pen) 10 unit WITH MEALS SC Last administered on 11/17/18 07:46; Admin Dose 10 UNIT; Start 11/17/18 at 07:35 Insulin Aspart (Novolog Insulin Pen) NOVOLOG *MILD* ALGORITHM WITH MEALS BEDTIME SC Last administered on 11/17/18 07:47; Admin Dose 5 UNIT; Start 11/17/18 at 02:21 Potassium Phosphate 40 meq/ Sodium Chloride 259.0909 ml @ 64.773 m... ONCE ONCE IVPB Last administered on 11/17/18 08:45; Admin Dose 64.773 MLS/HR; Start 11/17/18 at 10:00; Stop 11/17/18 at 13:59 Magnesium Sulfate 50 ml @ 25 mls/hr ONCE ONCE IVPB Last administered on 11/17/18 07:47; Admin Dose 25 MLS/HR; Start 11/17/18 at 07:30; Stop 11/17/18 at 09:29 IRINA ROY NP Nov 17, 2018 09:23
[2018-11-17] MEDS ORDERED: POTASSIUM PHOSPHATE 40 MEQ in SOD CHLORIDE 0.9% 250 ML IVPB ONE (10:00)
[2018-11-17] MEDS: GUAIFENESIN/CODEINE 5ML CUP PO PRN (14:02)
--- NOTE | 2018-11-17 14:41 | CONS ---
Date/Time of Note Date/Time of Note DATE: 11/17/18 TIME: 14:36 Assessment/Plan Assessment/Plan Hospital Course Type 1 DM -anion gap closed, bicarb much improved -FS still high on lantus 24 and novolog 10 units TIDAC, will adjust regimen -increase lantus to 30 units daily -increase novolog to 15 units TIDAC -continue novolog mild dose correction scale AC and HS -check FS AC and HS -will follow with you and adjust regimen accordingly. Result Diagram: 11/17/18 0445 11/17/18 0445 Results 24hrs Laboratory Tests Test 11/16/18 15:09 11/16/18 16:24 11/16/18 16:28 11/16/18 17:00 Bedside Glucose 195 282 H Sodium Level 138 Potassium Level 3.0 L Chloride Level 115 H Carbon Dioxide 14 L Level Anion Gap 9 # Blood Urea 2 L Nitrogen Creatinine 0.55 Est Glomerular > 60 Filtrat Rate mL/min Glucose Level 292 H Calcium Level 8.6 Phosphorus Level 1.3 L Magnesium Level 1.5 L Total Bilirubin 0.5 Direct Bilirubin 0.00 Indirect 0.5 Bilirubin Aspartate Amino 27 Transf (AST/SGOT ) Alanine 34 Aminotransferase (ALT/SGPT) Alkaline 99 Phosphatase Total Protein 6.1 # Albumin 3.4 # Globulin 2.70 Albumin/Globulin 1.25 Ratio Blood Gas Blood venous Specimen Source Arterial Blood 11/16/2018 4:50: Date Drawn 09 PM Arterial Blood OTHER Gas Puncture Site [place] Test N/A Venous Blood pH 7.357 Venous Blood 26.9 L pCO2 (Temp Corrected) Venous Blood pO2 37.5 H (Temp Corrected) Venous Blood 14.8 L HCO3 Venous Blood 81.0 H Oxygen Saturation Venous Blood -9.1 L Base Excess Venous Blood 13.3 Total Hemoglobin Venous Blood 80.4 Oxyhemoglobin Venous Blood 0.3 Methemoglobin Carboxyhemoglobi 0.4 n Blood Gas 37.0 Temperature Blood Gas NASAL CANNULA Modality FiO2 27.0 Blood Gas Notified Whom Blood Gas 11/16/2018 5:03: Notified Time 34 PM Test 11/16/18 17:36 11/16/18 19:03 11/16/18 20:01 11/16/18 20:20 Bedside Glucose 280 H 272 H 274 H Sodium Level 138 Potassium Level 3.1 L Chloride Level 112 H Carbon Dioxide 15 L Level Anion Gap 11 Blood Urea < 2 L Nitrogen Creatinine 0.55 Est Glomerular > 60 Filtrat Rate mL/min Glucose Level 261 H Calcium Level 8.4 Test 11/16/18 20:30 11/16/18 21:04 11/16/18 21:58 11/16/18 23:17 Blood Gas Blood venous Specimen Source Arterial Blood 11/16/2018 8:30: Date Drawn 37 PM Arterial Blood VENOUS LINE Gas Puncture Site [place] Test N/A Venous Blood pH 7.383 Venous Blood 24.6 L pCO2 (Temp Corrected) Venous Blood pO2 37.8 H (Temp Corrected) Venous Blood 14.3 L HCO3 Venous Blood 79.8 H Oxygen Saturation Venous Blood -9.0 L Base Excess Venous Blood 12.8 Total Hemoglobin Venous Blood 79.5 Oxyhemoglobin Venous Blood 0.4 Methemoglobin Carboxyhemoglobi 0 n Blood Gas 37.0 Temperature Blood Gas Actual 14 Respiration Rate Blood Gas ROOM AIR Modality FiO2 21.0 Blood Gas MA Notified Whom Blood Gas 11/16/2018 8:46: Notified Time 23 PM Bedside Glucose 270 H 257 H 269 H Test 11/17/18 01:59 11/17/18 04:45 11/17/18 07:41 11/17/18 11:59 Bedside Glucose 236 H 350 H 287 H White Blood 8.2 Count Red Blood Count 4.12 L Hemoglobin 12.0 Hematocrit 33.0 L Mean Corpuscular 80.1 L Volume Mean Corpuscular 29.1 Hemoglobin Mean Corpuscular 36.4 Hemoglobin Brenda nt Red Cell 14.9 H Distribution Width Platelet Count 290 Mean Platelet 10.5 H Volume Immature 1.000 H Granulocytes % Neutrophils % 33.6 L Lymphocytes % 48.3 Monocytes % 11.7 H Eosinophils % 4.5 Basophils % 0.9 Nucleated Red 0.0 Blood Cells % Immature 0.080 H Granulocytes # Neutrophils # 2.7 Lymphocytes # 3.9 H Monocytes # 1.0 H Eosinophils # 0.4 Basophils # 0.1 Nucleated Red 0.0 Blood Cells # Sodium Level 137 Potassium Level 3.1 L Chloride Level 112 H Carbon Dioxide 15 L Level Anion Gap 10 Blood Urea < 2 L Nitrogen Creatinine 0.58 Est Glomerular > 60 Filtrat Rate mL/min Glucose Level 277 H Calcium Level 9.1 Phosphorus Level 2.4 #L Magnesium Level 1.4 L Total Bilirubin 0.7 Direct Bilirubin 0.00 Indirect 0.7 Bilirubin Aspartate Amino 35 Transf (AST/SGOT ) Alanine 37 Aminotransferase (ALT/SGPT) Alkaline 101 Phosphatase Total Protein 6.2 Albumin 3.5 Globulin 2.70 Albumin/Globulin 1.29 Ratio Consultation Date/Type/Reason Admit Date/Time Nov 14, 2018 at 19:30 Initial Consult Date 11/15/18 Requesting Provider: PARISA SUN 24 HR Interval Summary Free Text/Dictation Patient seen and examined at bedside, had mild abdominal pain after breakfast but didn't vomit. She was given lantus 24 units last night and started on standing novolog 10 units this morning with breakfast. Anion gap closed, bicarb much improved at 15. FS however, still running high on current sc regimen. Exam/Review of Systems Vital Signs Vitals Vital Signs Date Temp Pulse Resp B/P (MAP) Pulse Ox O2 O2 Flow FiO2 Time Delivery Rate 11/17/18 115 16 96/85 (89) 100 14:00 11/17/18 Room Air 13:00 11/17/18 98.8 12:00 11/16/18 21 20:35 11/16/18 2.0 02:24 Intake and Output 11/16/18 11/16/18 11/17/18 1515:00 23:00 07:00 IntakeIntake Total 2014.8 ml 1176.7 ml OutputOutput Total 1160 ml 1500 ml 800 ml BalanceBalance 854.8 ml -323.3 ml -800 ml Exam General: Comfortable in appearance, not in acute distress. Skin appropriate for ethnicity Eye: Extraocular movements are intact, Normal conjunctiva. HENT: Normocephalic, atraumatic. Respiratory: Respirations are non-labored, Breath sounds are equal, Symmetrical chest wall expansion. Cardiovascular: S1, S2. No murmur. No LE edema Gastrointestinal: Soft, Non-tender, Non-distended, Normal bowel sounds. Integumentary: Warm to touch. Neurologic: Alert, Oriented. Cognition and Speech: Speech clear and coherent, Functional cognition intact. Psychiatric: Cooperative, Appropriate mood & affect. Medications Medications Current Medications Miscellaneous Information (* Miscellaneous Pharmacy Order) HYPOGLYCEMIA TREATMENT HYPOGLYCEM PROTOCOL PRN XX HYPOGLYCEMIA (BS<70); Start 11/14/18 at 19:00 Dextrose (D50w Syringe) 50 ml Q15M PRN IV DECREASED GLUCOSE; Start 11/14/18 at 19:00 Dextrose (D50w Syringe) 25 ml Q15M PRN IV DECREASED GLUCOSE; Start 11/14/18 at 19:00 Ondansetron HCl (Zofran Inj) 4 mg Q6H PRN IV NAUSEA AND/OR VOMITING Last administered on 11/17/18at 07:47; Admin Dose 4 MG; Start 11/14/18 at 20:30 Albuterol (Proventil 0.083% (Neb)) 2.5 mg Q2H RESP THERAPY PRN NEB SHORTNESS OF BREATH; Start 11/14/18 at 20:30 Ipratropium [place] (Atrovent 0.02% (Neb)) 0.5 mg Q2H RESP THERAPY PRN NEB SHORTNESS OF BREATH; Start 11/14/18 at 20:30 Acetaminophen (Tylenol Liquid) 650 mg Q6H PRN PO PAIN LEVEL 1-3 OR FEVER; Start 11/14/18 at 20:30 Morphine Sulfate (morphine) 1 mg Q4H PRN IV PAIN LEVEL 7-10; Start 11/14/18 at 20:30 Heparin Sodium (Porcine) (Heparin (5000 Units/1ml)) 5,000 unit Q8 SC Last administered on 11/17/18at 14:00; Admin Dose 5,000 UNIT; Start 11/14/18 at 22:00 Guaifenesin/ Codeine Phosphate (Robitussin Ac Liquid Cup) 5 ml Q4H PRN PO COUGH Last administered on 11/17/18at 14:02; Admin Dose 5 ML; Start 11/15/18 at 01:30 Levalbuterol (Xopenex Neb) 1.25 mg Q4H RESP THERAPY PRN HHN WHEEZING AND RESP DISTRESS Last administered on 11/15/18at 01:27; Admin Dose 1.25 MG; Start 11/15/18 at 01:30 Insulin Glargine (Lantus) 24 units DAILY@2000 SC Last administered on 11/16/18at 20:07; Admin Dose 24 UNITS; Start 11/15/18 at 20:00 Insulin Aspart (Novolog Insulin Pen) 10 unit WITH MEALS SC Last administered on 11/17/18at 12:03; Admin Dose 10 UNIT; Start 11/17/18 at 07:35 Insulin Aspart (Novolog Insulin Pen) NOVOLOG *MILD* ALGORITHM WITH MEALS BEDTIME SC Last administered on 11/17/18at 11:30; Admin Dose 4 UNIT; Start 11/17/18 at 02:21 JUAN GARDNER MD Nov 17, 2018 14:41
[2018-11-17] MEDS ORDERED: POTASSIUM CHLORIDE 20 MEQ POWDER FOR ORAL SOLN PO ONE (15:30)
[2018-11-17] MEDS: INSULIN GLARGINE [LANTus] (100 UNITS/ML) SYG SC SCH (20:32)
[2018-11-18] VITALS (7 sets, daily range): BP systolic 85–116; BP diastolic 55–78; PULSE 83–97; RESP 13–24
[2018-11-18] MEDS: HEPARIN 5,000 UNIT/1 ML VIAL SC SCH ×3 (05:53→22:00)
[2018-11-18] MEDS ORDERED: POTASSIUM CHLORIDE (SR) 20 MEQ TAB PO STA (07:44)
--- NOTE | 2018-11-18 08:02 | PN ---
DATE: 11/18/2018 SUBJECTIVE: The patient is stable, no acute events overnight. OBJECTIVE: VITAL SIGNS: Blood pressure is 116/75, respirations 18, pulse 97, temperature 98.3. HEENT: Head is normocephalic. NECK: Supple. HEART: Regular rate. LUNGS: Show diminished breath sounds at the base. ABDOMEN: Soft, nontender to palpation without rebound or guarding. EXTREMITIES: Negative for clubbing, cyanosis, no edema. DERMATOLOGIC: No rashes. MUSCULOSKELETAL: No joint effusion. NEUROLOGIC: No change in exam. MEDICATIONS: Reviewed. LABORATORY DATA: Shows sodium 138, potassium 3.3, BUN 9, creatinine 0.54. White count 8.4, hemoglob in 9.5, platelet count is 308. ASSESSMENT AND PLAN: 1. Hypernatremia, resolved. Continue to monitor. 2. Hypokalemia. We will replete with potassium chloride. 3. Hypomagnesemia. Continue to monitor and replete. 4. Diabetes status post diabetic ketoacidosis. Continue current insulin regimen. Follow up with en docrinology for management. 5. Metabolic acidosis, resolved. 6. Systemic inflammatory response syndrome, resolving. Dictated By: CAROLYN LINDSEY DO NR/NTS Conf#: [id number] DID#: [id number] CC: PARISA SUN MD; HANNAH COX MD;*End*
[2018-11-18] MEDS: INSULIN ASPART [NOVOLOG] 3 ML PEN SC SCH ×7 (08:36→20:58)
--- NOTE | 2018-11-18 10:44 | PN ---
Date/Time of Note Date/Time of Note DATE: 11/18/18 TIME: 10:43 Assessment/Plan VTE Prophylaxis Risk score (from Nsg)>0 risk: 0 SCD applied (from Nsg): No SCD contraindicated: low risk/ambulating Pharmacological prophylaxis: LMWH Lines/Catheters IV Catheter Type (from Nrsg): Peripheral IV Urinary Cath still in place: No Assessment/Plan Hospital Course Assessment and plan 1. DKA, stable and resolved 2. Diabetes/hyperglycemia, more stable, adjust insulin. Anticipate discharge tomorrow 3. Failure to thrive, will need to follow-up with endocrinology diabetic education for this year Subjective: No further nausea vomiting fever. Tolerating diet. States her A1c had improved to an extent where it was controlled with metformin but has not had it adequately checked over the last year. Objective: Vital signs stable Physical exam No pallor Regular no murmur rub gallop Clear Benign No edema Result Diagram: 11/18/18 0524 11/18/1824 Results 24hrs Laboratory Tests Test 11/17/18 11:59 11/17/18 14:15 11/17/18 17:30 11/17/18 20:28 Bedside Glucose 287 H 348 H 398 H Potassium Level 3.5 Phosphorus Level 3.5 Magnesium Level 2.0 Test 11/18/18 05:24 11/18/18 08:33 White Blood Count 8.4 Red Blood Count 3.95 L Hemoglobin 11.5 L Hematocrit 32.3 L Mean Corpuscular 81.8 L Volume Mean Corpuscular 29.1 Hemoglobin Mean Corpuscular 35.6 Hemoglobin Concent Red Cell 14.6 H Distribution Width Platelet Count 308 Mean Platelet Volume 10.4 Immature 1.400 H Granulocytes % Neutrophils % 41.5 Lymphocytes % 40.9 Monocytes % 12.5 H Eosinophils % 2.9 Basophils % 0.8 Nucleated Red Blood 0.0 Cells % Immature 0.120 H Granulocytes # Neutrophils # 3.5 Lymphocytes # 3.4 H Monocytes # 1.1 H Eosinophils # 0.2 Basophils # 0.1 Nucleated Red Blood 0.0 Cells # Sodium Level 138 Potassium Level 3.3 L Chloride Level 103 Carbon Dioxide Level 21 Anion Gap 14 H Blood Urea Nitrogen 9 Creatinine 0.54 Est Glomerular > 60 Filtrat Rate mL/min Glucose Level 272 H Calcium Level 8.8 Phosphorus Level 3.3 Magnesium Level 1.9 Bedside Glucose 272 H Exam/Review of Systems Vital Signs Vitals Vital Signs Date Temp Pulse Resp B/P (MAP) Pulse Ox O2 O2 Flow FiO2 Time Delivery Rate 11/18/18 98.4 83 14 99/66 (77) 98 08:09 11/18/18 Room Air 01:00 11/16/18 21 20:35 11/16/18 2.0 02:24 Intake and Output 11/17/18 11/17/18 11/18/18 1515:00 23:00 07:00 IntakeIntake Total 1210 ml 240 ml BalanceBalance 1210 ml 240 ml Medications Medications Current Medications Miscellaneous Information (* Miscellaneous Pharmacy Order) HYPOGLYCEMIA TREATMENT HYPOGLYCEM PROTOCOL PRN XX HYPOGLYCEMIA (BS<70); Start 11/14/18 at 19:00 Dextrose (D50w Syringe) 50 ml Q15M PRN IV DECREASED GLUCOSE; Start 11/14/18 at 19:00 Dextrose (D50w Syringe) 25 ml Q15M PRN IV DECREASED GLUCOSE; Start 11/14/18 at 19:00 Ondansetron HCl (Zofran Inj) 4 mg Q6H PRN IV NAUSEA AND/OR VOMITING Last administered on 11/17/18at 07:47; Admin Dose 4 MG; Start 11/14/18 at 20:30 Albuterol (Proventil 0.083% (Neb)) 2.5 mg Q2H RESP THERAPY PRN NEB SHORTNESS OF BREATH; Start 11/14/18 at 20:30 Ipratropium [place] (Atrovent 0.02% (Neb)) 0.5 mg Q2H RESP THERAPY PRN NEB SHORTNESS OF BREATH; Start 11/14/18 at 20:30 Acetaminophen (Tylenol Liquid) 650 mg Q6H PRN PO PAIN LEVEL 1-3 OR FEVER; Start 11/14/18 at 20:30 Morphine Sulfate (morphine) 1 mg Q4H PRN IV PAIN LEVEL 7-10; Start 11/14/18 at 20:30 Heparin Sodium (Porcine) (Heparin (5000 Units/1ml)) 5,000 unit Q8 SC Last administered on 11/18/18at 05:53; Admin Dose 5,000 UNIT; Start 11/14/18 at 22:00 Guaifenesin/ Codeine Phosphate (Robitussin Ac Liquid Cup) 5 ml Q4H PRN PO COUGH Last administered on 11/17/18at 14:02; Admin Dose 5 ML; Start 11/15/18 at 01:30 Levalbuterol (Xopenex Neb) 1.25 mg Q4H RESP THERAPY PRN HHN WHEEZING AND RESP DISTRESS Last administered on 11/15/18at 01:27; Admin Dose 1.25 MG; Start 11/15/18 at 01:30 Insulin Aspart (Novolog Insulin Pen) 15 unit WITH MEALS SC Last administered on 11/18/18at 08:36; Admin Dose 15 UNIT; Start 11/17/18 at 17:35 Insulin Glargine (Lantus) 30 units DAILY@2000 SC Last administered on 11/17/18at 20:32; Admin Dose 30 UNITS; Start 11/17/18 at 20:00 Insulin Aspart (Novolog Insulin Pen) NOVOLOG *MODERATE* ALGORITHM WITH MEALS BEDTIME SC ; Start 11/18/18 at 12:00 HANSA MEHTA MD Nov 18, 2018 10:44
--- NOTE | 2018-11-18 17:28 | CONS ---
Date/Time of Note Date/Time of Note DATE: 11/18/18 TIME: 17:25 Assessment/Plan Assessment/Plan Problems: (1) Diabetic ketoacidosis Status: Resolved Qualifiers: Diabetes mellitus type: type 1 Diabetes mellitus complication detail: without coma Qualified Codes: E10.10 - Type 1 diabetes mellitus with ketoacidosis without coma (2) Type 1 diabetes mellitus with hyperglycemia Status: Chronic Comment: BG has been difficult to control. Insulin doses increased last night w/ reduction in BG from 300's to 200's. Will cont. these doses and increase correctional Novolog scale from mild to moderate. Hopefully this will normalize glucose and then current lantus dose can help her maintain this. Await c- peptide result to help establish diagnosis of T1 vs. T2DM for future care. Result Diagram: 11/18/1852311/18/18523 Results 24hrs Laboratory Tests Test 11/17/18 17:30 11/17/18 20:28 11/18/18 05:24 11/18/18 08:33 Bedside Glucose 348 H 398 H 272 H White Blood Count 8.4 Red Blood Count 3.95 L Hemoglobin 11.5 L Hematocrit 32.3 L Mean Corpuscular 81.8 L Volume Mean Corpuscular 29.1 Hemoglobin Mean Corpuscular 35.6 Hemoglobin Concent Red Cell 14.6 H Distribution Width Platelet Count 308 Mean Platelet Volume 10.4 Immature 1.400 H Granulocytes % Neutrophils % 41.5 Lymphocytes % 40.9 Monocytes % 12.5 H Eosinophils % 2.9 Basophils % 0.8 Nucleated Red Blood 0.0 Cells % Immature 0.120 H Granulocytes # Neutrophils # 3.5 Lymphocytes # 3.4 H Monocytes # 1.1 H Eosinophils # 0.2 Basophils # 0.1 Nucleated Red Blood 0.0 Cells # Sodium Level 138 Potassium Level 3.3 L Chloride Level 103 Carbon Dioxide Level 21 Anion Gap 14 H Blood Urea Nitrogen 9 Creatinine 0.54 Est Glomerular > 60 Filtrat Rate mL/min Glucose Level 272 H Calcium Level 8.8 Phosphorus Level 3.3 Magnesium Level 1.9 Test 11/18/18 12:38 Bedside Glucose 239 H Consultation Date/Type/Reason Admit Date/Time Nov 14, 2018 at 19:30 Initial Consult Date 11/15/18 Type of Consult Endocrinology Reason for Consultation DKA Requesting Provider: CORINNE,PARISA 24 HR Interval Summary Constitutional: no complaints, improved (feels much better. back to normal.) Detailed Summary Respiratory: no complaints Cardiovascular: no complaints Gastrointestinal: no complaints Genitourinary: no complaints Musculoskeletal: no complaints Neurologic: no complaints Exam/Review of Systems Vital Signs Vitals VS - Last 72 Hours, by Label Date Temp Pulse Resp B/P (MAP) Pulse Ox O2 O2 Flow FiO2 Time Delivery Rate 11/18/18 98.8 94 16 98/55 (69) 99 14:18 11/18/18 98.4 83 14 99/66 (77) 98 08:09 11/18/18 98.3 97 18 116/75 97 04:10 (89) 11/18/18 90 24 101/73 99 02:00 (82) 11/18/18 91 14 85/62 (70) 99 Room Air 01:00 11/18/18 98.7 90 13 103/78 99 Room Air 00:00 (86) 11/17/18 92 102/70 97 Room Air 23:00 (81) 11/17/18 105 104/78 98 Room Air 22:00 (87) 11/17/18 92 21:33 11/17/18 86 15 99 21:00 11/17/18 98.3 92 20 98/84 (89) 100 Room Air 20:00 11/17/18 95 15 98 19:00 11/17/18 100 18 104/72 98 Room Air 18:00 (83) 11/17/18 100 16 99 Room Air 17:00 11/17/18 107 16:00 11/17/18 98.5 105 17 102/70 100 Room Air 16:00 (81) 11/17/18 98 20 100 Room Air 15:00 11/17/18 115 16 96/85 (89) 100 14:00 11/17/18 101 17 99/72 (81) 99 Room Air 13:00 11/17/18 98.8 97 14 103/72 100 Room Air 12:00 (82) 11/17/18 99 12:00 11/17/18 99 14 115/83 98 Room Air 11:00 (94) 11/17/18 97 19 106/70 98 Room Air 10:00 (82) 11/17/18 106 17 115/80 100 Room Air 09:00 (92) 11/17/18 98.6 88 13 112/72 100 Room Air 08:00 (85) 11/17/18 95 08:00 11/17/18 88 15 101/66 99 Room Air 07:00 (78) 11/17/18 152 05:01 11/17/18 93 04:00 11/17/18 89 15 101/68 100 Room Air 03:00 (79) 11/17/18 92 16 106/75 100 Room Air 02:00 (85) 11/17/18 93 17 107/69 100 Room Air 01:00 (82) 11/17/18 110 00:00 11/17/18 98.7 95 17 114/80 100 Room Air 00:00 (91) 11/16/18 100 14 118/76 100 Room Air 23:00 (90) 11/16/18 91 17 112/78 100 Room Air 22:00 (89) 11/16/18 88 16 114/76 100 Room Air 21:00 (89) 11/16/18 100 21 20:35 11/16/18 99 20:00 11/16/18 98.5 93 16 112/81 100 Room Air 20:00 (91) 11/16/18 105 18 110/87 100 Room Air 19:00 (95) 11/16/18 94 18 120/91 100 Room Air 18:00 (101) 11/16/18 99 18 115/82 100 Room Air 17:00 (93) 11/16/18 98.4 90 20 105/82 100 Room Air 16:00 (90) 11/16/18 92 16:00 11/16/18 96 16 103/77 100 Room Air 15:00 (86) 11/16/18 90 17 98/75 (83) 100 Room Air 14:00 11/16/18 100 12 100/75 100 Room Air 13:00 (83) 11/16/18 92 12:00 11/16/18 98.1 89 16 113/93 100 Room Air 12:00 (100) 11/16/18 84 14 100 Room Air 11:00 11/16/18 90 16 104/75 100 Room Air 10:00 (85) 11/16/18 93 16 103/65 100 Room Air 09:00 (78) 11/16/18 80 08:00 11/16/18 98.3 84 15 97/67 (77) 100 Room Air 08:00 11/16/18 78 15 91/64 (73) 100 Room Air 07:00 11/16/18 81 15 98/70 (79) 100 Room Air 06:00 11/16/18 92 14 97/69 (78) 100 Room Air 05:00 11/16/18 93 04:00 11/16/18 98.0 92 16 126/75 100 Room Air 04:00 (92) 11/16/18 94 22 108/77 100 Room Air 03:00 (87) 11/16/18 100 2.0 27 02:24 11/16/18 83 14 102/62 100 Room Air 02:00 (75) 11/16/18 91 15 104/69 100 Room Air 01:00 (81) 11/16/18 93 00:00 11/16/18 98.5 93 16 104/72 99 Room Air 00:00 (83) 11/15/18 100 20 103/78 100 Room Air 23:00 (86) 11/15/18 103 19 100/74 99 Room Air 22:00 (83) 11/15/18 89 17 101/76 99 Room Air 21:00 (84) 11/15/18 100 2.0 27 20:00 11/15/18 98.1 83 18 92/68 (76) 100 Room Air 20:00 11/15/18 83 20:00 11/15/18 90 17 111/73 100 Room Air 19:00 (86) 11/15/18 86 16 100/70 100 Room Air 18:00 (80) Vital Signs Date Temp Pulse Resp B/P (MAP) Pulse Ox O2 O2 Flow FiO2 Time Delivery Rate 11/18/18 98.8 94 16 98/55 (69) 99 14:18 11/18/18 Room Air 01:00 11/16/18 21 20:35 11/16/18 2.0 02:24 Intake and Output 11/17/18 11/17/18 11/18/18 1515:00 23:00 07:00 IntakeIntake Total 1210 ml 240 ml BalanceBalance 1210 ml 240 ml Exam Constitutional: alert, oriented, well developed Respiratory: clear to auscultation, normal air movement Cardiovascular: regular rate and rhythm, nl pulses; No edema, No murmurs/extra sounds, No rub Gastrointestinal: soft, nl liver, spleen, non-tender, bowel sounds; No mass, No rebound or guarding Musculoskeletal: nl extremities to inspection Extremities: normal pulses; No cyanosis, No clubbing, No edema Neurological: [employer] II-XII intact, nl mental status, nl speech, nl strength Additional Comments Bedside Glucose - 72 Hours Test 11/15/18 17:39 11/15/18 19:29 11/15/18 20:24 11/15/18 21:37 Bedside 268 302 264 271 Glucose mg/dL (70-220) mg/dL (70-220) mg/dL (70-220) mg/dL (70-220) H H H H Test 11/15/18 22:46 11/15/18 23:42 11/16/18 00:32 11/16/18 01:35 Bedside 294 294 300 192 Glucose mg/dL (70-220) mg/dL (70-220) mg/dL (70-220) mg/dL (70-220) H H H Test 11/16/18 02:40 11/16/18 03:36 11/16/18 04:40 11/16/18 05:40 Bedside 315 216 232 265 Glucose mg/dL (70-220) mg/dL (70-220) mg/dL (70-220) mg/dL (70-220) H H H Test 11/16/18 06:37 11/16/18 08:20 11/16/18 09:34 11/16/18 10:43 Bedside 291 320 307 317 Glucose mg/dL (70-220) mg/dL (70-220) mg/dL (70-220) mg/dL (70-220) H H H H Test 11/16/18 11:32 11/16/18 12:56 11/16/18 14:14 11/16/18 15:09 Bedside 242 214 210 195 Glucose mg/dL (70-220) mg/dL (70-220) mg/dL (70-220) mg/dL (70-220) H Test 11/16/18 16:28 11/16/18 17:36 11/16/18 19:03 11/16/18 20:01 Bedside 282 280 272 274 Glucose mg/dL (70-220) mg/dL (70-220) mg/dL (70-220) mg/dL (70-220) H H H H Test 11/16/18 21:04 11/16/18 21:58 11/16/18 23:17 11/17/18 01:59 Bedside 270 257 269 236 Glucose mg/dL (70-220) mg/dL (70-220) mg/dL (70-220) mg/dL (70-220) H H H H Test 11/17/18 07:41 11/17/18 11:59 11/17/18 17:30 11/17/18 20:28 Bedside 350 287 348 398 Glucose mg/dL (70-220) mg/dL (70-220) mg/dL (70-220) mg/dL (70-220) H H H H Test 11/18/18 08:33 11/18/18 12:38 Bedside 272 239 Glucose mg/dL (70-220) mg/dL (70-220) H H Medications Medications Current Medications Miscellaneous Information (* Miscellaneous Pharmacy Order) HYPOGLYCEMIA TREATMENT HYPOGLYCEM PROTOCOL PRN XX HYPOGLYCEMIA (BS<70); Start 11/14/18 at 19:00 Dextrose (D50w Syringe) 50 ml Q15M PRN IV DECREASED GLUCOSE; Start 11/14/18 at 19:00 Dextrose (D50w Syringe) 25 ml Q15M PRN IV DECREASED GLUCOSE; Start 11/14/18 at 19:00 Ondansetron HCl (Zofran Inj) 4 mg Q6H PRN IV NAUSEA AND/OR VOMITING Last administered on 11/17/18at 07:47; Admin Dose 4 MG; Start 11/14/18 at 20:30 Albuterol (Proventil 0.083% (Neb)) 2.5 mg Q2H RESP THERAPY PRN NEB SHORTNESS OF BREATH; Start 11/14/18 at 20:30 Ipratropium [place] (Atrovent 0.02% (Neb)) 0.5 mg Q2H RESP THERAPY PRN NEB SHORTNESS OF BREATH; Start 11/14/18 at 20:30 Acetaminophen (Tylenol Liquid) 650 mg Q6H PRN PO PAIN LEVEL 1-3 OR FEVER; Start 11/14/18 at 20:30 Morphine Sulfate (morphine) 1 mg Q4H PRN IV PAIN LEVEL 7-10; Start 11/14/18 at 20:30 Heparin Sodium (Porcine) (Heparin (5000 Units/1ml)) 5,000 unit Q8 SC Last administered on 11/18/18 13:50; Admin Dose 5,000 UNIT; Start 11/14/18 at 22:00 Guaifenesin/ Codeine Phosphate (Robitussin Ac Liquid Cup) 5 ml Q4H PRN PO COUGH Last administered on 11/17/18at 14:02; Admin Dose 5 ML; Start 11/15/18 at 01:30 Levalbuterol (Xopenex Neb) 1.25 mg Q4H RESP THERAPY PRN HHN WHEEZING AND RESP DISTRESS Last administered on 11/15/18 01:27; Admin Dose 1.25 MG; Start 11/15/18 at 01:30 Insulin Aspart (Novolog Insulin Pen) 15 unit WITH MEALS SC Last administered on 11/18/18 13:38; Admin Dose 15 UNIT; Start 11/17/18 at 17:35 Insulin Glargine (Lantus) 30 units DAILY@2000 SC Last administered on 11/17/18at 20:32; Admin Dose 30 UNITS; Start 11/17/18 at 20:00 Insulin Aspart (Novolog Insulin Pen) NOVOLOG *MODERATE* ALGORITHM WITH MEALS BEDTIME SC Last administered on 11/18/18 13:39; Admin Dose 6 UNIT; Start 11/18/18 at 12:00 HANNAH COX MD Nov 18, 2018 17:28
[2018-11-18] MEDS: INSULIN GLARGINE [LANTus] (100 UNITS/ML) SYG SC SCH (20:59)
[2018-11-19 02:44] VITALS: BP 108/75; PULSE 90; RESP 18
[2018-11-19] MEDS: HEPARIN 5,000 UNIT/1 ML VIAL SC SCH (05:53)
[2018-11-19 07:31] VITALS: BP 106/65; PULSE 78; RESP 20
[2018-11-19 07:37] VITALS: BP 123/94; PULSE 66; RESP 20
[2018-11-19] MEDS ORDERED: POTASSIUM CHLORIDE (SR) 20 MEQ TAB PO STA (07:45)
--- NOTE | 2018-11-19 08:04 | PN ---
DATE: 11/19/2018 SUBJECTIVE: The patient is stable. No events overnight. No fevers, chills, nausea, vomiting. OBJECTIVE: VITAL SIGNS: Blood pressure is 123/94, respirations 20, pulse 66, temperature 97.6. HEENT: Head is normocephalic. NECK: Supple. HEART: Regular rate. LUNGS: Show diminished breath sounds at the base. ABDOMEN: Soft, nontender to palpation without rebound or guarding. EXTREMITIES: Negative for clubbing, cyanosis, no edema. DERMATOLOGIC: No rashes. MUSCULOSKELETAL: No joint effusion. NEUROLOGIC: No change in exam. MEDICATIONS: The patient's medications have been reviewed. LABORATORY DATA: Show sodium 139, potassium 3.2, BUN 11, creatinine 0.46. White count 8.4, hemoglob in 9.5, platelet count 308. ASSESSMENT AND PLAN: 1. Hypernatremia, resolved. Continue to monitor. 2. Hypokalemia. We will replete with potassium chloride. 3. Hypomagnesemia. Continue to monitor and replete. 4. Diabetes status post diabetic ketoacidosis. Continue current insulin regimen per endocrinology. 5. Metabolic acidosis, resolved. 6. Systemic inflammatory response syndrome, resolving. Dictated By: CAROLYN LINDSEY DO NR/NTS Conf#: [id number] DID#: [id number] CC: PARISA SUN MD; HANSA MEHTA MD; HANNAH COX MD;*EndCC*
[2018-11-19] MEDS: INSULIN ASPART [NOVOLOG] 3 ML PEN SC SCH ×3 (08:19→12:37)
[2018-11-19] MEDS ORDERED: INSULIN ASPART [NOVOLOG] 3 ML PEN SC SCH (12:00)
--- NOTE | 2018-11-19 12:19 | PDOCDIS ---
Discharge Instructions DIAGNOSIS Discharge Diagnosis Diabetic ketoacidosis CONDITION [id number] Patient Condition: [id number] Good HOME CARE INSTRUCTIONS: [id number] Special Diet: [id number] Carbohydrate controlled diet ACTIVITY: [id number] Activity Restrictions: [id number] No Restrictions FOLLOW UP/APPOINTMENTS Follow-up Plan 1. Take all medications as prescribed. 2. You may adjust the dose of your short and long-acting insulin to keep blood sugar about 90-140. 3. See your primary care doctor in 1-2 weeks. 4. Return to the emergency room for uncontrollable very high or very low blood sugar or for vomiting, inability to keep down food or liquids. SOURVA ARAUJO MD Nov 19, 2018 12:19
[2018-11-19] MEDS ORDERED: [UNRECOGNIZED DRUG - CODE] MC (12:22)
[2018-11-19] MEDS ORDERED: NOVO3I SC (12:22)
[2018-11-19] MEDS ORDERED: BLOO-432 MC (12:22)
[2018-11-19] MEDS ORDERED: Insulin Glargine SC (12:22)
--- NOTE | 2018-11-19 15:01 | DS ---
Date/Time of Note Date/Time of Note DATE: 11/19/18 TIME: 14:58 Discharge Summary Admission/Discharge Info Admit Date/Time Nov 14, 2018 at 19:30 Discharge Date/Time Nov 19, 2018 at 14:10 Discharge Diagnosis Diabetic ketoacidosis Patient Condition: Good Consults Nephrology Dr Sierra Procedures None Hx of Present Illness Chief complaint: Right upper quadrant discomfort, difficulty breathing times 4 days, cough yesterday, vomiting 28-year-old woman who is a diabetic who presents to the emergency room with right upper quadrant abdominal discomfort. The patient describes nausea and vomiting including nonbloody nonbilious emesis. Several episodes of looser stool. The patient's right upper quadrant pain is intermittent and cramping approximately 5 out of 10. Patient reports that her blood sugars have been ra nging around the 330 range. She is only on oral medications at the current time she is also prescribed insulin however she has been noncompliant with it. Patient noted to have hyperglycemia. She denies any recent travel, sick contacts or antibiotics. She denies any fevers. Allergies: NKDA Medications: See JAN Hospital Course She was admitted to ICU on an insulin gtt. Glucose rapidly corrected. Etiology was likely insulin nonadherence plus gastroenteritis causing dehydration. She d id have a UA sent with some leuk esterase but the patient denies having any dysuria or urinary symptoms, so no antibiotics. She was seen by the emergency medical services coordinator. She will be discharged on glargine and thrice daily aspart. Home Meds Active Scripts Pen Needle, Diabetic ([facility]ocate Pen Needle) 1 Each Dis.needle, EACH , #30 Prov:SOURAV ARAUJO MD 11/19/18 Blood Glucose Strips-Dispmeter ([employer]io[employer] Spine Blood Glucose System) 1 Each Kit, EACH MC, #1 Prov:SOURAV ARAUJO MD 11/19/18 [Insulin Glargine] 100 UNITS/ML SOLN No Conflict Check, 34 UNITS SC DAILY@1999, #30 DAYSX 3 28 Prov:SOURAV ARAUJO MD 11/19/18 Insulin Aspart* (Novolog Insulin Pen*) 100 Unit/Ml Soln, 18 UNIT SC WITH MEALS, #30 DAYSX 3 28 Prov:SOURAV ARAUJO MD 11/19/18 Reported Medications Metformin Hcl* (Metformin Hcl*) 500 Mg Tablet, 500 MG PO WITH BREAKFAST DINNE, #60 TAB 11/14/18 Discontinued Scripts Insulin Glargine* (Lantus*) 100 Unit/Ml Soln, 24 UNIT SC DAILY@20 for 30 Days Prov:TIMI CALVO 07/17/17 Insulin Aspart* (Novolog Insulin Pen*) 100 Unit/Ml Soln, 10 UNIT SC WITH MEALS for 30 Days Prov:TIMI CALVO 07/17/17 Follow-up Plan 1. Take all medications as prescribed. 2. You may adjust the dose of your short and long-acting insulin to keep blood sugar about 90-140. 3. See your primary care doctor in 1-2 weeks. 4. Return to the emergency room for uncontrollable very high or very low blood sugar or for vomiting, inability to keep down food or liquids. Primary Care Provider Care Physician No Primary Time spent on discharge: > 30 minutes Pending Labs Laboratory Tests Test 11/18/18 17:53 11/18/18 20:56 11/19/18 03:49 11/19/18 05:30 Bedside 301 205 203 Glucose mg/dL (70-220) mg/dL (70-220) mg/dL (70-220) Sodium Level 139 mmol/L (135-14 4) Potassium 3.2 Level mmol/L (3.5-5. 1) Chloride Level 103 mmol/L (97-110 ) Carbon Dioxide 24 Level mmol/L (21-31) Anion Gap 12 (5-13) Blood Urea 11 Nitrogen mg/dl (7-20) Creatinine 0.46 mg/dl (0.44-1. 00) Est Glomerular > 60 Filtrat mL/min (>60) Rate mL/min Glucose Level 193 mg/dl (70-220) Calcium Level 8.6 mg/dl (8.4-10. 2) Phosphorus 3.4 Level mg/dl (2.5-4.9 ) Magnesium 1.8 Level mg/dl (1.7-2.5 ) Test 11/19/18 08:08 11/19/18 12:34 Bedside 170 176 Glucose mg/dL (70-220) mg/dL (70-220) SOURAV ARAUJO MD Nov 19, 2018 15:01
[2018-11-19] MEDS ORDERED: INSULIN GLARGINE [LANTus] (100 UNITS/ML) SYG SC SCH (20:00)
== END 2018-11-19 14:10 | disposition home or self-care (01) | DRG 638 ==
LOC: E/R 16:28 → ICU 19:30 → 2NE 11-18 04:30
PROVIDERS: ADMIT Family Medicine; ATTEND Internal Medicine
DX: E10.10 Type 1 diabetes mellitus with ketoacidosis without coma (principal); E87.0 Hyperosmolality and hypernatremia; R65.10 Systemic inflammatory response syndrome (SIRS) of non-infectious origin without acute organ dysfunction; E87.6 Hypokalemia; E83.42 Hypomagnesemia; K52.9 Noninfective gastroenteritis and colitis, unspecified; E86.0 Dehydration; R05 Cough; E66.9 Obesity, unspecified; E83.39 Other disorders of phosphorus metabolism; Z79.4 Long term (current) use of insulin; Z68.30 Body mass index [BMI] 30.0-30.9, adult
CPT/HCPCS: 36415; 36600; 71045; 76705; 80048; 80053; 80061; 80307; 81001; 81025; 82803; 82962; 83036; 83605; 83735; 84100; 84132; 84681; 85025; 87040; 87081; 87086; 87880; 93005; 94664; 96374; 96375; C9113; J1644; J1815; J2270; J2405; J3475; J3480; J7030; J7050; J7120

== ENCOUNTER 2019-05-30 18:32 | Inpatient (IN) | payer MEDICAID, OTHER ==
[~2019-05-30] VITALS: Ht 152.4 cm; Wt 69.5 kg
[~2019-05-30 18:32] MED LIST changes: +BLOO-432 MC; +GEMF600T8 PO; +Insulin Glargine SC; -LANT3I SC; +LEVO75TA5 PO; +METF500T24 PO; +OMEG100024 PO; +SERT50TA6 PO; +TRAZ-149 PO; +[UNRECOGNIZED DRUG - CODE] MC
[2019-05-30] MEDS ORDERED: SOD CHLORIDE 0.9% 1,000 ML IV STA (19:33)
[2019-05-30] MEDS ORDERED: ONDANSETRON 4 MG INJ IV STA (19:33)
[2019-05-30] MEDS ORDERED: CEFTRIAXONE 1 GM/50 ML (PMX) 50 ML IVPB ONE (20:30)
[2019-05-30] MEDS ORDERED: DEXTROSE 10%/0.45% NACL 1,000 ML IV SCH (20:44)
[2019-05-30] MEDS ORDERED: NS + KCL 30 MEQ 1,000 ML IV SCH (20:44)
[2019-05-30] MEDS ORDERED: SOD CHLORIDE 0.9% 1,000 ML IV SCH (20:44)
[2019-05-30] MEDS ORDERED: NS + KCL 40 MEQ 1,000 ML IV SCH (20:44)
[2019-05-30] MEDS ORDERED: LACTATED RINGER'S 670 ML IV ONE (21:00)
[2019-05-30] MEDS ORDERED: DEXTROSE 50% 50 ML SYRINGE IV PRN ×2 (21:00)
[2019-05-30] MEDS ORDERED: SOD CHLORIDE 0.9% 100 ML ONE (21:05)
[2019-05-30] MEDS ORDERED: IOHEXOL 300MG/ML 150 ML BTL ONE (21:05)
[2019-05-30] MEDS ORDERED: BISACODYL (EC) 5 MG TAB PO PRN (21:30)
[2019-05-30] MEDS ORDERED: HYDROCODONE/APAP (5/325) TAB PO PRN (21:30)
[2019-05-30] MEDS ORDERED: ACETAMINOPHEN 650MG/20.3ML CUP PO PRN (21:30)
[2019-05-30] MEDS ORDERED: morphine 2 MG INJ IV PRN (21:30)
[2019-05-30] MEDS: FAMOTIDINE 20 MG INJ IV SCH (21:52)
[2019-05-30] MEDS: DOCUSATE SODIUM 100 MG CAP PO SCH (21:52)
[2019-05-30] MEDS: HEPARIN 5,000 UNIT/1 ML VIAL SC SCH (22:00)
[2019-05-30] MEDS: D10/0.45% NACL + KCL 30 MEQ 1,000 ML IV SCH (22:22)
[2019-05-30] MEDS: INSULIN REGULAR, HUMAN 100 UNIT in SOD CHLORIDE 0.9% 100 ML IV SCH ×2 (22:26)
--- NOTE | 2019-05-30 22:29 | HP ---
Date/Time of Note Date/Time of Note DATE: 05/30/19 TIME: 22:28 Assessment/Plan VTE Prophylaxis SCD applied (from Nsg): Yes Pharmacological prophylaxis: NA/contraindicated Pharm contraindication: low risk/ambulating Lines/Catheters IV Catheter Type (from Nrsg): Saline Lock Assessment/Plan Hospital Course This is a 28-year-old female being admitted to the ICU floor for: #1 diabetic ketoacidosis: PH at the current time is7.1 and bicarb is 7. no indicated for bicarb at this time. At the current time we will continue on the DKA protocol. Insulin drip. Patient is hemoglobin A1c is greater than 14. She remains noncompliant with her diabetes regimen at home. Will consult endocrinology. #2 Anion gap metabolic acidosis: Secondary to diabetic ketoacidosis. At the current time we will continue DKA protocol. #3 diabetes mellitus type 2: Hemoglobin A1c is better than 14. Noncompliant with her home medication regimen. We will need to optimize her diabetes medication regimen once DKA is resolved. Will consult endocrinology. #4 Hypothyroidism: We will check TSH, resume levothyroxine #5 mood disorder: Continue sertraline, trazodone #6 hyperlipidemia: Continue gemfibrozil when clinically indicated, check lipids #7 urinary tract infection: Ceftriaxone 1 g every 24 hours #8 DVT GI prophylaxis: SCDs, H2 pascual Further treatment strategy will be implemented as per the clinical course. Greater than 35 minutes critical care time was spent on the care management this patient. Result Diagram: 05/30/19195305/30/191953 Results 24hrs Laboratory Tests Test 05/30/19 19:06 05/30/19 19:40 05/30/19 19:51 05/30/19 19:54 Bedside Glucose 372 H Urine Color YELLOW Urine Clarity SLIGHTLY CLOUDY A Urine pH 5.0 Urine Specific 1.023 [place] Urine Ketones 2+ H Urine Nitrite NEGATIVE Urine Bilirubin NEGATIVE Urine NEGATIVE Urobilinogen Urine Leukocyte TRACE A Esterase Urine Microscopic 6 H RBC Urine Microscopic 22 H WBC Urine Squamous FEW Epithelial Cells Urine Hemoglobin 2+ H Urine Glucose 3+ H Urine Total 2+ H Protein POC Beta HCG, NEGATIVE Qualitative White Blood Count 13.6 #H Red Blood Count 5.13 # Hemoglobin 15.8 # Hematocrit 46.4 # Mean Corpuscular 90.4 Volume Mean Corpuscular 30.8 Hemoglobin Mean Corpuscular 34.1 Hemoglobin Concen t Red Cell 13.7 Distribution Width Platelet Count 547 #H Mean Platelet 9.7 Volume Immature 1.300 H Granulocytes % Neutrophils % 65.8 Lymphocytes % 18.7 Monocytes % 12.3 H Eosinophils % 1.2 Basophils % 0.7 Nucleated Red 0.0 Blood Cells % Immature 0.180 H Granulocytes # Neutrophils # 8.9 H Lymphocytes # 2.5 Monocytes # 1.7 H Eosinophils # 0.2 Basophils # 0.1 Nucleated Red 0.0 Blood Cells # Sodium Level 137 Potassium Level 3.3 L Chloride Level 106 Carbon Dioxide 7 *L Level Anion Gap 24 H Blood Urea 6 L Nitrogen Creatinine 0.81 Est Glomerular > 60 Filtrat Rate mL/min Glucose Level 371 H Hemoglobin A1c > 14.0 H Calcium Level 10.2 Total Bilirubin 0.5 Direct Bilirubin 0.00 Indirect 0.5 Bilirubin Aspartate Amino 16 Transf (AST/SGOT) Alanine 18 Aminotransferase (ALT/SGPT) Alkaline 199 H Phosphatase Total Protein 9.1 H Albumin 4.9 Globulin 4.20 H Albumin/Globulin 1.16 Ratio Lipase 380 H Test 05/30/19 21:59 Bedside Glucose 292 H HPI/ROS Admit Date/Time Admit Date/Time Hx of Present Illness cc: 2 days of feeling unwell, abdominal pain This is a 29-year-old female with a past medical history of insulin-dependent diabetes, hyperlipidemia, hypothyroidism, and medication noncompliance who is presenting with 2 days of feeling generally unwell with generalized weakness and pain, nausea with multiple episodes of nonbilious nonbloody vomiting in addition to moderate general cramping abdominal pain, worse on the right side. The patient does not endorse any alleviating or exacerbating factors. She does report that she is compliant with her medications however for the last 2 days she did not have much of an appetite and was not feeling well so she was not taking her diabetes medications as she supposed to according to her. Allergies: NKDA medications: See Jan Const: As per HPI Eyes : No pain discharge or redness or change in visual acuity ENT: No pain, sore throat, congestion, congestion, dysphagia or discharge Respiratory: No shortness of breath, cough, sputum, wheezing, or pleuritic pain Cardiovascular: No chest pain, palpitation, PND, or edema GI : As per HPI Genitourinary: No dysuria, hematuria, flank pain , discharge or CVA tenderness Musculoskeletal: No joint pain, back pain, neck pain, restricted range of motion in neck or joints Skin: No rash, bruising or hives Neuro: No headache, dizziness, syncope, seizure, focal weakness Endocrine: No polyuria, polydipsia, temperature intolerance Psych: No hallucination, depression, anxiety or suicidal ideation Additional Comments PROCEDURE: CT Abdomen and pelvis with contrast. CLINICAL INDICATION: Abdominal pain. TECHNIQUE: CT scan of the abdomen and pelvis with contrast was performed on a multi-detector high-resolution CT scanner. The patient was scanned following the uncomplicated administration of 100 cc of Omnipaque 300 intravenous contrast. Coronal and sagittal reformatted images were obtained from the axial source images. Images were reviewed on a high-resolution PACS workstation. DICOM images are available. One or more of the following dose reduction techniques were used: - Automated exposure control. - Adjustment of the mA and/or kV according to patient size. - Use of iterative reconstruction technique. Exam CTD/vol = 9.30 mGy. Total exam DLP = 524.58 mGy-cm. COMPARISON: 05/25/2010. FINDINGS: Evaluation of the lung bases demonstrates no pleural or parenchymal disease. Abdomen: The liver is normal in size. There is no focal mass or dilatation of the biliary tree. The gallbladder is not distended. The spleen, pancreas and bilateral adrenal glands are within normal limits. Bilateral kidneys are normal in size with symmetric enhancement. There is no focal mass, hydronephrosis or hydroureter. There is no retroperitoneal adenopathy. The abdominal aorta is of normal caliber. There is moderate retained stool within the colon. There is no bowel obstruction or free air. A normal appendix is identified. There are scattered sigmoid diverticuli without evidence of diverticulitis. There is no ascites. Pelvis: The bladder is unremarkable. There is a small 1.5 cm anterior uterine fibroid. There is no significant pelvic adenopathy or free fluid. Evaluation of the osseous structures demonstrates no suspicious lytic or blastic lesion. IMPRESSION: No acute abnormality identified within the abdomen and pelvis. Scattered sigmoid diverticuli without evidence of diverticulitis. Moderate retained stool within the colon. Small uterine fibroid. Normal appendix identified. .Naif Banda MD, MD Date Time Electronically viewed and signed by .Naif Banda MD, MD on 05/30/2019 21:39 .T/ CC: CELIA SEGURA MD [id number] PROCEDURE: XR Chest. CLINICAL INDICATION: Chest/abdominal pain TECHNIQUE: Single portable view of the chest was obtained. COMPARISON: 11/15/2018 FINDINGS: Cardiac/vascular structures: Normal cardiomediastinal silhouette. Pulmonary: Lungs are clear. No pleural effusion. No evidence of pneumothorax. Osseous structures: Normal Soft tissues: Normal IMPRESSION: No acute cardiopulmonary disease. RPTAT:AAJJ Physician [place] Date Time Electronically viewed and signed by Caterina Downey Physician on 05/30/2019 21:12 MH/ CC: CELIA SEGURA MD [id number] PMH/Family/Social Past Medical History Diabetes mellitus type 2, hypothyroidism, hyperlipidemia Medications Current Medications Potassium Chloride/Sodium Chloride 1,000 ml @ 0 mls/hr Q0M IV ; Start 05/30/19 at 20:44 Potassium Chloride/Dextrose/ Sod Cl 1,000 ml @ 0 mls/hr Q0M IV ; Start 05/30/19 at 20:44 Potassium Chloride/Sodium Chloride 1,000 ml @ 0 mls/hr Q0M IV Last adm inistered on 05/30/19at 22:22; Admin Dose 100 MLS/HR; Start 05/30/19 at 20:44 Potassium Chloride/Dextrose/ Sod Cl 1,000 ml @ 0 mls/hr Q0M IV Last administered on 05/30/19at 22:22; Admin Dose 150 MLS/HR; Start 05/30/19 at 20:44 Sodium Chloride 1,000 ml @ 0 mls/hr Q0M IV ; Start 05/30/19 at 20:44 Dextrose/Sodium Chloride 1,000 ml @ 0 mls/hr Q0M IV ; Start 05/30/19 at 20:44 Insulin Human Regular 100 unit/ Sodium Chloride 101 ml @ 6.75 mls/hr ER DKA PROTOCOL IV Last administered on 05/30/19at 22:26; Admin Dose 6.75 MLS/HR; Start 05/30/19 at 21:00 Miscellaneous Information (* Miscellaneous Pharmacy Order) HYPOGLYCEMIA TREATMENT HYPOGLYCEM PROTOCOL PRN XX .HYPOGLYCEMIA PROTOCOL; Start 05/30/19 at 21:00 Dextrose (D50w Syringe) 50 ml Q15M PRN IV .DECREASED GLUCOSE; Start 05/30/19 at 21:00 Dextrose (D50w Syringe) 25 ml Q15M PRN IV .DECREASED GLUCOSE; Start 05/30/19 at 21:00 Albuterol (Proventil 0.083% (Neb)) 2.5 mg Q4H RESP THERAPY NEB ; Start 05/31/19 at 01:00 Acetaminophen (Tylenol Liquid) 650 mg Q6H PRN PO PAIN LEVEL 1-3 OR FEVER; Start 05/30/19 at 21:30 Acetaminophen/ Hydrocodone Bitart ([place] (5/325)) 1 tab Q6H PRN PO PAIN LEVEL 4-6; Start 05/30/19 at 21:30 Morphine Sulfate (morphine) 2 mg Q4H PRN IV PAIN LEVEL 7-10; Start 05/30/19 at 21:30 Docusate Sodium (Colace) 100 mg Q12H PO Last administered on 05/30/19at 21:52; Admin Dose 100 MG; Start 05/30/19 at 21:30 Bisacodyl (Dulcolax) 5 mg DAILY PRN PO CONSTIPATION; Start 05/30/19 at 21:30 Famotidine (Pepcid Iv) 20 mg Q12 IV Last administered on 05/30/19at 21:52; Admin Dose 20 MG; Start 05/30/19 at 21:30 Heparin Sodium (Porcine) (Heparin (5000 Units/1ml)) 5,000 unit Q8 SC ; Start 05/30/19 at 22:00 Levothyroxine Sodium (Synthroid) 75 mcg BEFORE BREAKFAST PO ; Start 05/31/19 at 07:00 Sertraline HCl (Zoloft) 50 mg DAILY PO ; Start 05/31/19 at 09:00 Trazodone HCl (Desyrel) 50 mg QHS PO ; Start 05/31/19 at 21:00 Coded Allergies: No Known Allergy (Unverified , 05/30/19) Past Surgical History Past Surgical Hx: no surgical history Family History Significant Family History: diabetes Social History Alcohol Use: none Smoking Status: Never smoker Drug Use: none Exam/Review of Systems Vital Signs Vitals Vital Signs Date Temp Pulse Resp B/P (MAP) Pulse Ox O2 O2 Flow FiO2 Time Delivery Rate 05/30/19 92 20 120/82 98 Room Air 21:44 (95) 05/30/19 98.6 19:01 Exam Exam General: Patient currently lying in bed in no acute distress, she appears lethargic HEENT: Atraumatic, normocephalic. The pupils are equal, round and reactive. Extraocular motor are intact Neck: Supple with full range of motion. No rigidity or meningismus Chest: Nontender Lungs: Clear to auscultation bilaterally no crackles rales or wheezing Heart: Normal S1-S2, Regular rhythm and rate. No murmur, S3, or S4 Abdomen: Soft , mild suprapubic tenderness to palpation,,bowel sounds are present. No guarding no rebound tenderness , No masses or organomegaly. No costovertebral temporal angle mass Extremities: Normal to inspection, no edema no cyanosis Neurologic: Normal mental status, speech normal, cranial nerves II through XII are intact, motor and sensory are intact, Additional Comments PROCEDURE: CT Abdomen and pelvis with contrast. CLINICAL INDICATION: Abdominal pain. TECHNIQUE: CT scan of the abdomen and pelvis with contrast was performed on a multi-detector high-resolution CT scanner. The patient was scanned following the uncomplicated administration of 100 cc of Omnipaque 300 intravenous contrast . Coronal and sagittal reformatted images were obtained from the axial source images. Images were reviewed on a high-resolution PACS workstation. DICOM images are available. One or more of the following dose reduction techniques were used: - Automated exposure control. - Adjustment of the mA and/or kV according to patient size. - Use of iterative reconstruction technique. Exam CTD/vol = 9.30 mGy. Total exam DLP = 524.58 mGy-cm. COMPARISON: 05/25/2010. FINDINGS: Evaluation of the lung bases demonstrates no pleural or parenchymal disease. Abdomen: The liver is normal in size. There is no focal mass or dilatation of the biliary tree. The gallbladder is not distended. The spleen, pancreas and bilateral adrenal glands are within normal limits. Bilateral kidneys are normal in size with symmetric enhancement. There is no focal mass, hydronephrosis or hydroureter. There is no retroperitoneal adenopathy. The abdominal aorta is of normal caliber. There is moderate retained stool within the colon. There is no bowel obstruction or free air. A normal appendix is identified. There are scattered sigmoid diverticuli without evidence of diverticulitis. There is no ascites. Pelvis: The bladder is unremarkable. There is a small 1.5 cm anterior uterine fibroid. There is no significant pelvic adenopathy or free fluid. Evaluation of the osseous structures demonstrates no suspicious lytic or blastic lesion. IMPRESSION: No acute abnormality identified within the abdomen and pelvis. Scattered sigmoid diverticuli without evidence of diverticulitis. Moderate retained stool within the colon. Small uterine fibroid. Normal appendix identified. .Naif Banda MD, Date Time Electronically viewed and signed by .Naif Banda MD, on 05/30/2019 21:39 .T/ CC: CELIA SEGURA MD [id number] PARISA SUN May 30, 2019 22:29
[2019-05-30] MEDS ORDERED: POLYETHYLENE GLYCOL 17 GM PACKET PO ONE (22:30)
[2019-05-31] VITALS (19 sets, daily range): BP systolic 93–115; BP diastolic 61–82; PULSE 80–138; RESP 10–23; Ht 152.4 cm; Wt 69.5 kg
[2019-05-31] MEDS: NS + KCL 40 MEQ 1,000 ML IV SCH ×3 (00:11→23:04)
[2019-05-31] MEDS: D10/0.45% NACL + KCL 40 MEQ 1,000 ML IV SCH ×2 (00:12→14:05)
--- NOTE | 2019-05-31 00:13 | ERD ---
ER Documentation Chief Complaint Chief Complaint vomiting/generalize body weakness x 2 days, also c/o abd pain HPI This is a 29-year-old female with a past medical history of insulin-dependent diabetes, hyperlipidemia, hypothyroidism, who is presenting with 2 days of feeling generally unwell with generalized weakness and pain, nausea with multiple episodes of nonbilious nonbloody vomiting in addition to moderate general cramping abdominal pain, worse on the right side. The patient does not endorse any alleviating or exacerbating factors. The patient denies fever or chills. The patient has had no headache or vision changes. The patient does not endorse neck or back pain. The patient denies lightheadedness or dizziness. The patient has had no chest pain or trouble breathing. The patient denies nausea or vomiting. The patient denies abdominal pain. The patient denies changes to bowel movements or urination. The patient has had no focal deficits. The patient has had no weakness or numbness or tingling to the face or extremities. ROS All systems reviewed and are negative except as per history of present illness. Medications Home Meds Active Scripts [Insulin Glargine] 100 UNITS/ML SOLN No Conflict Check, 34 UNITS SC DAILY@1999, #30 DAYSX 3 28 Prov:SOURAV ARAUJO MD 11/19/18 Insulin Aspart* (Novolog Insulin Pen*) 100 Unit/Ml Soln, 18 UNIT SC WITH MEALS, #30 DAYSX 3 28 Prov:SOURAV ARAUJO MD 11/19/18 Reported Medications Levothyroxine Sodium* (Levothyroxine Sodium*) 75 Mcg Tablet, 75 MCG PO BEFORE BREAKFAST, #30 TAB 05/30/19 Gemfibrozil* (Gemfibrozil*) 600 Mg Tablet, 600 MG PO BID, TAB 05/30/19 Trazodone Hcl* (Desyrel*) 50 Mg Tab, 50 MG PO QHS, #30 TAB 05/30/19 Sertraline Hcl* (Sertraline Hcl*) 50 Mg Tablet, 50 MG PO DAILY, #30 TAB 05/30/19 Metformin Hcl* (Metformin Hcl*) 500 Mg Tablet, 500 MG PO WITH BREAKFAST DINNE, #60 TAB 11/14/18 Discontinued Scripts Pen Needle, Diabetic (Advocate Pen Needle) 1 Each Dis.needle, EACH , #30 Prov:SOURAV ARAUJO MD 11/19/18 Blood Glucose Strips-Dispmeter ([email or web address] Blood Glucose System) 1 Each Kit, EACH , #1 Prov:SOURAV ARAUJO MD 11/19/18 Allergies Allergies: Coded Allergies: No Known Allergy (Unverified , 05/30/19) PMhx/Soc History of Surgery: No Anesthesia Reaction: No Hx Neurological Disorder: No Hx Respiratory Disorders: No Hx Cardiac Disorders: Yes (Diabetes, hyperlipidemia) Hx Psychiatric Problems: Yes (Depression) Hx Miscellaneous Medical Probl: Yes (hypothyroidism) Hx Alcohol Use: Yes Hx Substance Use: No Hx Tobacco Use: No Smoking Status: Never smoker FmHx Family History: diabetes Physical Exam Vitals Vital Signs Date Temp Pulse Resp B/P (MAP) Pulse Ox O2 O2 Flow FiO2 Time Delivery Rate 05/30/19 84 18 121/91 98 Room Air 21:00 (101) 05/30/19 93 19 118/90 98 Room Air 19:33 (99) 05/30/19 98.6 110 20 127/71 99 19:01 (89) Physical Exam Const: No acute distress Head: Atraumatic Eyes: Normal Conjunctiva ENT: Normal External Ears, Nose. Dry mucous membranes Neck: Full range of motion. No meningismus. Resp: Clear to auscultation bilaterally Cardio: Regular rate and rhythm, no murmurs Abd: Soft, non distended. Right sided abdominal tenderness, mild. Normal bowel sounds Skin: No petechiae or rashes. Tattoos present. A nose ring and chest stud also present without evidence of infection. Back: No midline or flank tenderness Ext: No cyanosis, or edema Neur: Awake and alert Psych: Normal Mood and Affect Result Diagram: 05/31/19 0512 05/31/19 0820 Results 24 hrs Laboratory Tests Test 05/30/19 19:06 05/30/19 19:40 05/30/19 19:51 05/30/19 19:54 Bedside Glucose 372 mg/dL Urine Color YELLOW Urine Clarity SLIGHTLY CLOUDY Urine pH 5.0 Urine Specific 1.023 [place] Urine Ketones 2+ mg/dL Urine Nitrite NEGATIVE mg/dL Urine Bilirubin NEGATIVE mg/dL Urine NEGATIVE mg/dL Urobilinogen Urine Leukocyte TRACE Valentina/ul Esterase Urine Microscopic 6 /HPF RBC Urine Microscopic 22 /HPF WBC Urine Squamous FEW /HPF Epithelial Cells Urine Hemoglobin 2+ mg/dL Urine Glucose 3+ mg/dL Urine Total 2+ mg/dl Protein POC Beta HCG, NEGATIVE Qualitative White Blood Count 13.6 10^3/ul Red Blood Count 5.13 10^6/ul Hemoglobin 15.8 g/dl Hematocrit 46.4 % Mean Corpuscular 90.4 fl Volume Mean Corpuscular 30.8 pg Hemoglobin Mean Corpuscular 34.1 g/dl Hemoglobin Concen t Red Cell 13.7 % Distribution Width Platelet Count 547 10^3/UL Mean Platelet 9.7 fl Volume Immature 1.300 % Granulocytes % Neutrophils % 65.8 % Lymphocytes % 18.7 % Monocytes % 12.3 % Eosinophils % 1.2 % Basophils % 0.7 % Nucleated Red 0.0 /100WBC Blood Cells % Immature 0.180 10^3/ul Granulocytes # Neutrophils # 8.9 10^3/ul Lymphocytes # 2.5 10^3/ul Monocytes # 1.7 10^3/ul Eosinophils # 0.2 10^3/ul Basophils # 0.1 10^3/ul Nucleated Red 0.0 10^3/ul Blood Cells # Sodium Level 137 mmol/L Potassium Level 3.3 mmol/L Chloride Level 106 mmol/L Carbon Dioxide 7 mmol/L Level Anion Gap 24 Blood Urea 6 mg/dl Nitrogen Creatinine 0.81 mg/dl Est Glomerular > 60 mL/min Filtrat Rate mL/min Glucose Level 371 mg/dl Hemoglobin A1c > 14.0 % Calcium Level 10.2 mg/dl Total Bilirubin 0.5 mg/dl Direct Bilirubin 0.00 mg/dl Indirect 0.5 mg/dl Bilirubin Aspartate Amino 16 IU/L Transf (AST/SGOT) Alanine 18 IU/L Aminotransferase (ALT/SGPT) Alkaline 199 IU/L Phosphatase Total Protein 9.1 g/dl Albumin 4.9 g/dl Globulin 4.20 g/dl Albumin/Globulin 1.16 Ratio Lipase 380 U/L Current Medications Medications Dose Sig/Barak Start Time Status Last (Trade) Ordered Route PRN Stop Time Admin Dose Reason Admin Sodium 1,000 ml @ Q1H STAT 05/30/19 DC 05/30/19 Chloride 1,000 mls/hr IV 19:33 19:46 05/30/19 20:32 Ondansetron 4 mg ONCE STAT 05/30/19 DC 05/30/19 HCl (Zofran IV 19:33 19:46 Inj) 05/30/19 19:34 Ceftriaxone 50 ml @ ONCE ONCE 05/30/19 DC 05/30/19 Sodium 100 mls/hr IVPB 20:30 20:24 05/30/19 20:59 Potassium 1,000 ml @ Q0M IV 05/30/19 DC Chloride/Sodi 0 mls/hr 20:44 um Chloride 05/31/19 00:02 Potassium 1,000 ml @ Q0M IV 05/30/19 05/31/19 Chloride/Dext 0 mls/hr 20:44 00:12 sandy/ Sod Cl Potassium 1,000 ml @ Q0M IV 05/30/19 05/30/19 Chloride/Sodi 0 mls/hr 20:44 22:22 um Chloride Potassium 1,000 ml @ Q0M IV 05/30/19 05/31/19 Chloride/Dext 0 mls/hr 20:44 11:33 sandy/ Sod Cl Sodium 1,000 ml @ Q0M IV 05/30/19 05/31/19 Chloride 0 mls/hr 20:44 05:47 1,000 ml @ Q0M IV 05/30/19 Dextrose/Sodi 0 mls/hr 20:44 um Chloride Insulin 101 ml @ ER DKA 05/30/19 05/30/19 Human 6.75 mls/hr PROTOCOL IV 21:00 22:26 Regular 100 unit/ Sodium Chloride Lactated 670 ml @ ONCE ONCE 05/30/19 DC 05/30/19 Ringer's 670 mls/hr IV 21:00 21:01 05/30/19 21:59 HYPOGLYCEM 05/30/19 Miscellaneous HYPOGLYCEMIA PROTOCOL PRN 21:00 TREATMENT XX Information .HYPOGLYCEMIA (* PROTOCOL Miscellaneous Pharmacy Order) Dextrose 50 ml Q15M PRN 05/30/19 (D50w IV 21:00 Syringe) .DECREASED GLUCOSE Dextrose 25 ml Q15M PRN 05/30/19 (D50w IV 21:00 Syringe) .DECREASED GLUCOSE IV Flush 10 ml STK-MED 05/30/19 DC (NS 10 ml) ONCE .ROUTE 21:05 05/30/19 21:06 Sodium 100 ml @ ud STK-MED 05/30/19 DC Chloride ONCE .ROUTE 21:05 05/30/19 21:06 Iohexol 150 ml STK-MED 05/30/19 DC (Omnipaque ONCE .ROUTE 21:05 300mg/ ml) 05/30/19 21:06 650 mg Q6H PRN 05/30/19 Acetaminophen PO PAIN 21:30 (Tylenol LEVEL 1-3 OR Liquid) FEVER 1 tab Q6H PRN 05/30/19 Acetaminophen PO PAIN 21:30 / LEVEL 4-6 Hydrocodone Bitart ([place] (5/325)) Morphine 2 mg Q4H PRN 05/30/19 Sulfate IV PAIN 21:30 (morphine) LEVEL 7-10 Docusate 100 mg Q12H PO 05/30/19 05/30/19 Sodium 21:30 21:52 (Colace) Bisacodyl 5 mg DAILY PRN 05/30/19 (Dulcolax) PO 21:30 CONSTIPATION Famotidine 20 mg Q12 IV 05/30/19 05/31/19 (Pepcid Iv) 21:30 11:33 Procedures/MDM MDM The patient's presentation warrants further investigation. Previous medical records, if available, were reviewed. LABS The patient's laboratory testing was obtained and reviewed. No emergent treatment was required unless described below. CBC: Leukocytosis without shift, likely reactive, low clinical suspicion for a systemic infection. No E/o severe anemia or thrombocytopenia Chemistry: Hyperglycemia with a significant anion gap metabolic acidosis, likely DKA. Hypokalemia which will need to be monitored closely in accordance with the DKA protocol. No E/o renal failure or liver disease Lipase: Mildly elevated but not 3 times normal, low clinical suspicion for pancreatitis Urine: E/o acute infection, hematuria, glucosuria, ketonuria IMAGING Imaging and Radiology interpretation reviewed. CXR FINDINGS: Cardiac/vascular structures: Normal cardiomediastinal silhouette. Pulmonary: Lungs are clear. No pleural effusion. No evidence of pneumothorax. Osseous structures: Normal Soft tissues: Normal IMPRESSION: No acute cardiopulmonary disease. Electronically viewed and signed by Caterina Downey Physician on 05/30/2019 21:12 CT Abd/Pelvis FINDINGS: Evaluation of the lung bases demonstrates no pleural or parenchymal disease. Abdomen: The liver is normal in size. There is no focal mass or dilatation of the biliary tree. The gallbladder is not distended. The spleen, pancreas and bilateral adrenal glands are within normal limits. Bilateral kidneys are normal in size with symmetric enhancement. There is no focal mass, hydronephrosis or hydroureter. There is no retroperitoneal adenopathy. The abdominal aorta is of normal caliber. There is moderate retained stool within the colon. There is no bowel obstruction or free air. A normal appendix is identified. There are scattered sigmoid diverticuli without evidence of diverticulitis. There is no ascites. Pelvis: The bladder is unremarkable. There is a small 1.5 cm anterior uterine fibroid. There is no significant pelvic adenopathy or free fluid. Evaluation of the osseous structures demonstrates no suspicious lytic or blastic lesion. IMPRESSION: No acute abnormality identified within the abdomen and pelvis. Scattered sigmoid diverticuli without evidence of diverticulitis. Moderate retained stool within the colon. Small uterine fibroid. Normal appendix identified. Electronically viewed and signed by Naif Banda MD, MD on 05/30/2019 21:39 TREATMENT/DISPOSITION The patient symptoms are consistent with DKA. The DKA protocol was initiated in the emergency department. The patient does have evidence of a urinary tract infection which will need to be treated as well. The patient has a mild leukocytosis that I suspect to be reactive related to the stress of DKA. The patient is afebrile. She does not meet criteria for a systemic inflammatory res ponse syndrome. The patient is not septic at this time and I do not feel that her symptoms warrant a full septic work-up. The patient was given IV fluids in accordance with the DKA protocol. She was also treated with a dose of Rocephin in the emergency department. The patient was mildly hypokalemic when she first arrived. This will need to be closely monitored and managed in accordance with the DKA protocol. The patient did endorse right-sided abdominal pain. I do suspect that the patient's symptoms are related to DKA. That said, a CT scan was completed to evaluate this further. The patient does appear to have mild constipation. She was found to have an incidental finding of a uterine fibroid. The patient has diverticulosis without evidence of diverticulitis. There is no evidence of cholelithiasis or cholecystitis. I do not suspect biliary colic. The patient's symptoms are not consistent with pancreatitis. I do not suspect GERD or PUD or gastritis. There is no evidence of appendicitis. There is no evidence of viscus perforation. I do not suspect peritonitis or mesenteric ischemia or ischemic colitis. ADMISSION At this time, I feel that the patient requires admission for further evaluation and management. The patient will be admitted to Panel in accordance with the patient's insurance. The patient was accepted by Dr. Moreira to the ICU CRITICAL CARE NOTE Time: 34 minutes excluding all billable procedures. Treatments/Evaluations: The patient was at risk of hemodynamic compromise. Timing of critical care involved close serial monitoring, evaluation of the patient's medical record including previous records & current laboratory/imaging studies, potential interventions for prevention of hemodynamic/ cardiopulmonary/ neurologic compromise, maintaining tight fluid balance, and any discussions with the family and/or consultants regarding the patient's status and prognosis. Disclaimer: Inadvertent spelling and grammatical errors are likely due to [employer]/dictation software use and do not reflect on the overall quality of patient care. Note that the electronic time recorded on this note does not necessarily reflect the actual time of the patient encounter. Departure Diagnosis: Primary Impression: DKA (diabetic ketoacidoses) Diabetes mellitus type: other specified (including KATHARINE) Diabetes mellitus complication detail: without coma Qualified Codes: E13.10 - Other specified diabetes mellitus with ketoacidosis without coma Additional Impressions: Nausea & vomiting Vomiting type: unspecified Vomiting Intractability: non-intractable Qu alified Codes: R11.2 - Nausea with vomiting, unspecified Hyperglycemia High anion gap metabolic acidosis UTI (urinary tract infection) Urinary tract infection type: acute cystitis Hematuria presence: with hematuria Qualified Codes: N30.01 - Acute cystitis with hematuria Abdominal pain Abdominal location: unspecified location Qualified Codes: R10.9 - Unspecified abdominal pain Condition: Critical CELIA SEGURA MD May 30, 2019 23:58
[2019-05-31] MEDS: ALBUTEROL 0.083% (NEB) 2.5 MG/3 ML AMP NEB SCH ×6 (01:24→22:00)
[2019-05-31] MEDS ORDERED: POTASSIUM CHLORIDE (SR) 20 MEQ TAB PO STA (02:05)
[2019-05-31] MEDS ORDERED: MAGNESIUM SULFATE 3 GM in DEXTROSE 5% 100 ML IVPB ONE (02:30)
[2019-05-31] MEDS ORDERED: SODIUM PHOSPHATE 20 MEQ in SOD CHLORIDE 0.9% 250 ML IVPB ONE (05:30)
[2019-05-31] MEDS: D10/0.45% NACL + KCL 30 MEQ 1,000 ML IV SCH ×2 (05:48→11:33)
[2019-05-31] MEDS ORDERED: SODIUM PHOSPHATE 30 MMOL in SOD CHLORIDE 0.9% 250 ML IVPB ONE (06:00)
[2019-05-31] MEDS: HEPARIN 5,000 UNIT/1 ML VIAL SC SCH ×3 (07:37→21:18)
[2019-05-31] MEDS: LEVOTHYROXINE 75 MCG TAB PO SCH (09:41)
--- NOTE | 2019-05-31 09:48 | PN ---
Date/Time of Note Date/Time of Note DATE: 05/31/19 TIME: 09:44 Assessment/Plan VTE Prophylaxis SCD applied (from Nsg): Yes Pharmacological prophylaxis: heparin Lines/Catheters IV Catheter Type (from Nrsg): Saline Lock Assessment/Plan Problems: (1) Diabetic ketoacidosis Status: Acute Comment: The anion gap has closed fortunately but the serum bicarb is still 12. This is a hyperchloremic metabolic acidosis. We will get the patient started on a diet and continue with the IV fluids and 1 more fluid bolus of LR. This should start turning this around. Once get the serum bicarb up and then take her off the insulin drip and go with multiple daily injection regimen. Please note that I am not certain given this being her third episode of DKA that I want to use metformin as an outpatient as tempting as it might be. Qualifiers: Diabetes mellitus type: type 1 Diabetes mellitus complication detail: without coma Qualified Codes: E10.10 - Type 1 diabetes mellitus with ketoacidosis without coma (2) Type 1 diabetes mellitus with hyperglycemia Status: Chronic Comment: Check C-peptide level to see what her level of pancreatic reserve is like. She had prior insulin antibodies tested and done in a prior admission those antibody tests were negative. (3) Hypothyroidism Status: Chronic Comment: Continue with thyroid hormone replacement. Please note now we have type 1 diabetes and hypothyroidism may be appropriate to look at other endocrine deficiencies as well. (4) Mixed hyperlipidemia Status: Chronic Comment: Consider the usage of omega-3 fish oil Result Diagram: 05/31/19 0512 05/31/19 0820 Results 24hrs Laboratory Tests Test 05/30/19 19:06 05/30/19 19:40 05/30/19 19:51 05/30/19 19:54 Bedside Glucose 372 H Urine Color YELLOW Urine Clarity SLIGHTLY CLOUDY A Urine pH 5.0 Urine Specific 1.023 [place] Urine Ketones 2+ H Urine Nitrite NEGATIVE Urine Bilirubin NEGATIVE Urine NEGATIVE Urobilinogen Urine Leukocyte TRACE A Esterase Urine 6 H Microscopic RBC Urine 22 H Microscopic WBC Urine Squamous FEW Epithelial Cell s Urine 2+ H Hemoglobin Urine Glucose 3+ H Urine Total 2+ H Protein POC Beta HCG, NEGATIVE Qualitative White Blood 13.6 #H Count Red Blood Count 5.13 # Hemoglobin 15.8 # Hematocrit 46.4 # Mean 90.4 Corpuscular Volume Mean 30.8 Corpuscular Hemoglobin Mean 34.1 Corpuscular Hemoglobin Conc ent Red Cell 13.7 Distribution Width Platelet Count 547 #H Mean Platelet 9.7 Volume Immature 1.300 H Granulocytes % Neutrophils % 65.8 Lymphocytes % 18.7 Monocytes % 12.3 H Eosinophils % 1.2 Basophils % 0.7 Nucleated Red 0.0 Blood Cells % Immature 0.180 H Granulocytes # Neutrophils # 8.9 H Lymphocytes # 2.5 Monocytes # 1.7 H Eosinophils # 0.2 Basophils # 0.1 Nucleated Red 0.0 Blood Cells # Sodium Level 137 Potassium Level 3.3 L Chloride Level 106 Carbon Dioxide 7 *L Level Anion Gap 24 H Blood Urea 6 L Nitrogen Creatinine 0.81 Est Glomerular > 60 Filtrat Rate mL/min Glucose Level 371 H Hemoglobin A1c > 14.0 H Calcium Level 10.2 Total Bilirubin 0.5 Direct 0.00 Bilirubin Indirect 0.5 Bilirubin Aspartate Amino 16 Transf (AST/SGO T) Alanine 18 Aminotransferas e (ALT/SGPT) Alkaline 199 H Phosphatase Total Protein 9.1 H Albumin 4.9 Globulin 4.20 H Albumin/Globuli 1.16 n Ratio Lipase 380 H Test 05/30/19 21:59 05/30/19 22:44 05/30/19 22:47 05/30/19 23:05 Bedside Glucose 292 H 315 H Blood Gas Blood venous Specimen Source Arterial Blood 05/30/2019 10:47 Date Drawn :09 PM Arterial Blood VENOUS LINE Gas Puncture Site [place]den Test N/A Venous Blood pH 7.141 *L Venous Blood 22.4 L pCO2 (Temp Corrected ) Venous Blood 21.8 L pO2 (Temp Corrected ) Venous Blood 7.5 L HCO3 Venous Blood 41.6 L Oxygen Saturation Venous Blood -19.7 L Base Excess Venous Blood 14.9 Total Hemoglobin Venous Blood 41.5 Oxyhemoglobin Venous Blood 0.1 Methemoglobin Carboxyhemoglob 0.2 in Blood Gas 37.0 Temperature Blood Gas ROOM AIR Modality FiO2 21.0 Blood Gas Ivon FIGUEROA RN Critical Value Read Back Blood Gas MM Notified Whom Blood Gas 05/30/2019 10:52 Notified Time :44 PM Sodium Level 137 Potassium Level 3.1 L Chloride Level 108 Carbon Dioxide 7 *L Level Anion Gap 22 H Blood Urea 5 L Nitrogen Creatinine 0.57 Est Glomerular > 60 Filtrat Rate mL/min Glucose Level 302 H Calcium Level 8.4 Phosphorus 2.4 L Level Magnesium Level 1.6 L Test 05/30/19 23:33 05/31/19 00:28 05/31/19 00:31 05/31/19 00:44 Bedside Glucose 296 H 274 H Sodium Level 140 Potassium Level 3.1 L Chloride Level 111 H Carbon Dioxide 10 L Level Anion Gap 19 H Blood Urea 5 L Nitrogen Creatinine 0.59 Est Glomerular > 60 Filtrat Rate mL/min Glucose Level 301 H Calcium Level 8.5 Phosphorus 1.7 L Level Magnesium Level 1.6 L Blood Gas Blood venous Specimen Source Arterial Blood 05/31/2019 1:10 Date Drawn :57 AM Arterial Blood VENOUS LINE Gas Puncture Site [place] Test N/A Venous Blood pH 7.169 *L Venous Blood 25.0 L pCO2 (Temp Corrected ) Venous Blood 26.6 pO2 (Temp Corrected ) Venous Blood 8.9 L HCO3 Venous Blood 53.1 L Oxygen Saturation Venous Blood -17.9 L Base Excess Venous Blood 14.8 Total Hemoglobin Venous Blood 52.9 Oxyhemoglobin Venous Blood 0.1 Methemoglobin Carboxyhemoglob 0.2 in Blood Gas 37.0 Temperature Blood Gas NASAL CANNULA Modality FiO2 27.0 Blood Gas JAYDA ALMAZAN Critical Value Read Back Blood Gas MM Notified Whom Blood Gas 05/31/2019 1:19 Notified Time :33 AM Test 05/31/19 01:35 05/31/19 02:27 05/31/19 03:37 05/31/19 04:37 Bedside Glucose 258 H 297 H 279 H 275 H Test 05/31/19 04:44 05/31/19 04:51 05/31/19 05:12 05/31/19 05:37 Blood Gas Blood venous Specimen Source Arterial Blood 05/31/2019 4:35: Date Drawn 55 AM Arterial Blood VENOUS LINE Gas Puncture Site [place] Test N/A Venous Blood pH 7.166 *L Venous Blood 31.3 L pCO2 (Temp Corrected ) Venous Blood 23.4 L pO2 (Temp Corrected ) Venous Blood 11.1 L HCO3 Venous Blood 48.9 L Oxygen Saturation Venous Blood -16.3 L Base Excess Venous Blood 14.1 Total Hemoglobin Venous Blood 48.7 Oxyhemoglobin Venous Blood 0.1 Methemoglobin Carboxyhemoglob 0.3 in Blood Gas 37.0 Temperature Blood Gas ROOM AIR Modality FiO2 21.0 Blood Gas Ivon FIGUEROA RN Critical Value Read Back Blood Gas MM Notified Whom Blood Gas 05/31/2019 4:42: Notified Time 28 AM Sodium Level 139 Potassium Level 3.3 L Chloride Level 113 H Carbon Dioxide 10 L Level Anion Gap 16 H Blood Urea 4 L Nitrogen Creatinine 0.60 Est Glomerular > 60 Filtrat Rate mL/min Glucose Level 322 H Calcium Level 8.5 Phosphorus 1.1 L Level Magnesium Level 2.5 White Blood 9.1 # Count Red Blood Count 4.10 #L Hemoglobin 12.6 # Hematocrit 36.8 #L Mean 89.8 Corpuscular Volume Mean 30.7 Corpuscular Hemoglobin Mean 34.2 Corpuscular Hemoglobin Conc ent Red Cell 13.6 Distribution Width Platelet Count 375 # Mean Platelet 9.6 Volume Immature 0.800 H Granulocytes % Neutrophils % 53.0 Lymphocytes % 27.3 Monocytes % 15.9 H Eosinophils % 2.3 Basophils % 0.7 Nucleated Red 0.0 Blood Cells % Immature 0.070 H Granulocytes # Neutrophils # 4.8 Lymphocytes # 2.5 Monocytes # 1.5 H Eosinophils # 0.2 Basophils # 0.1 Nucleated Red 0.0 Blood Cells # Triglycerides 279 H Level Cholesterol 261 H Level LDL 175 Cholesterol, Calculated HDL Cholesterol 30 L Cholesterol/HDL 8.7 Ratio Thyroid 0.905 Stimulating Hormone (TSH) Bedside Glucose 299 H Test 05/31/19 06:35 05/31/19 07:39 05/31/19 08:20 05/31/19 08:39 Bedside Glucose 299 H 323 H 266 H Sodium Level 139 Potassium Level 3.6 Chloride Level 115 H Carbon Dioxide 12 L Level Anion Gap 12 Blood Urea 3 L Nitrogen Creatinine 0.55 Est Glomerular > 60 Filtrat Rate mL/min Glucose Level 311 H Calcium Level 8.3 L Phosphorus 0.7 L Level Magnesium Level 2.2 Lipase 133 Test 05/31/19 08:44 Blood Gas Blood venous Specimen Source Arterial Blood 05/31/2019 8:09: Date Drawn 24 AM Arterial Blood VENOUS LINE Gas Puncture Site [place] Test N/A Venous Blood pH 7.241 L Venous Blood 29.2 L pCO2 (Temp Corrected ) Venous Blood 27.3 pO2 (Temp Corrected ) Venous Blood 12.3 L HCO3 Venous Blood 60.4 Oxygen Saturation Venous Blood -13.6 L Base Excess Venous Blood 14.0 Total Hemoglobin Venous Blood 60.0 Oxyhemoglobin Venous Blood 0.3 Methemoglobin Carboxyhemoglob 0.4 in Blood Gas 37.0 Temperature Blood Gas ROOM AIR Modality FiO2 21.0 Blood Gas M.D. Notified Whom Blood Gas 05/31/2019 8:16: Notified Time 55 AM Subjective 24 Hr Interval Summary Free Text/Dictation 29-year-old female with her third admission for diabetic ketoacid osis. Please note she also has now acquired hypothyroidism. Constitutional: no complaints (Denies fevers chills or sweats) Respiratory: no complaints (Cough no wheezing no asthma no shortness of breath) Cardiovascular: no complaints (Pain in the chest no squeezing no tightness no orthopnea no PND) Gastrointestinal: no complaints (Ports her abdominal discomfort has improved.) Genitourinary: no complaints Endocrine: no complaints Exam/Review of Systems Exam Vitals Vital Signs Date Temp Pulse Resp B/P (MAP) Pulse Ox O2 O2 Flow FiO2 Time Delivery Rate 05/31/19 91 08:44 05/31/19 18 100 21 08:19 05/31/19 107/76 Room Air 08:00 (86) 05/31/19 98.4 05:59 05/31/19 2.0 02:02 Intake and Output 05/30/19 05/30/19 05/31/19 1515:00 23:00 07:00 IntakeIntake Total 1720 ml BalanceBalance 1720 ml Constitutional: alert, oriented Neck: supple, non-tender Respiratory: clear to auscultation, normal air movement Cardiovascular: regular rate and rhythm, nl pulses Gastrointestinal: soft, nl liver, spleen, non-tender Results Results 24hrs Laboratory Tests Test 05/30/19 19:06 05/30/19 19:40 05/30/19 19:51 05/30/19 19:54 Bedside Glucose 372 H Urine Color YELLOW Urine Clarity SLIGHTLY CLOUDY A Urine pH 5.0 Urine Specific 1.023 [place] Urine Ketones 2+ H Urine Nitrite NEGATIVE Urine Bilirubin NEGATIVE Urine NEGATIVE Urobilinogen Urine Leukocyte TRACE A Esterase Urine 6 H Microscopic RBC Urine 22 H Microscopic WBC Urine Squamous FEW Epithelial Cell s Urine 2+ H Hemoglobin Urine Glucose 3+ H Urine Total 2+ H Protein POC Beta HCG, NEGATIVE Qualitative White Blood 13.6 #H Count Red Blood Count 5.13 # Hemoglobin 15.8 # Hematocrit 46.4 # Mean 90.4 Corpuscular Volume Mean 30.8 Corpuscular Hemoglobin Mean 34.1 Corpuscular Hemoglobin Conc ent Red Cell 13.7 Distribution Width Platelet Count 547 #H Mean Platelet 9.7 Volume Immature 1.300 H Granulocytes % Neutrophils % 65.8 Lymphocytes % 18.7 Monocytes % 12.3 H Eosinophils % 1.2 Basophils % 0.7 Nucleated Red 0.0 Blood Cells % Immature 0.180 H Granulocytes # Neutrophils # 8.9 H Lymphocytes # 2.5 Monocytes # 1.7 H Eosinophils # 0.2 Basophils # 0.1 Nucleated Red 0.0 Blood Cells # Sodium Level 137 Potassium Level 3.3 L Chloride Level 106 Carbon Dioxide 7 *L Level Anion Gap 24 H Blood Urea 6 L Nitrogen Creatinine 0.81 Est Glomerular > 60 Filtrat Rate mL/min Glucose Level 371 H Hemoglobin A1c > 14.0 H Calcium Level 10.2 Total Bilirubin 0.5 Direct 0.00 Bilirubin Indirect 0.5 Bilirubin Aspartate Amino 16 Transf (AST/SGO T) Alanine 18 Aminotransferas e (ALT/SGPT) Alkaline 199 H Phosphatase Total Protein 9.1 H Albumin 4.9 Globulin 4.20 H Albumin/Globuli 1.16 n Ratio Lipase 380 H Test 05/30/19 21:59 05/30/19 22:44 05/30/19 22:47 05/30/19 23:05 Bedside Glucose 292 H 315 H Blood Gas Blood venous Specimen Source Arterial Blood 05/30/2019 10:47 Date Drawn :09 PM Arterial Blood VENOUS LINE Gas Puncture Site [place] Test N/A Venous Blood pH 7.141 *L Venous Blood 22.4 L pCO2 (Temp Corrected ) Venous Blood 21.8 L pO2 (Temp Corrected ) Venous Blood 7.5 L HCO3 Venous Blood 41.6 L Oxygen Saturation Venous Blood -19.7 L Base Excess Venous Blood 14.9 Total Hemoglobin Venous Blood 41.5 Oxyhemoglobin Venous Blood 0.1 Methemoglobin Carboxyhemoglob 0.2 in Blood Gas 37.0 Temperature Blood Gas ROOM AIR Modality FiO2 21.0 Blood Gas Ivon FIGUEROA RN Critical Value Read Back Blood Gas MM Notified Whom Blood Gas 05/30/2019 10:52 Notified Time :44 PM Sodium Level 137 Potassium Level 3.1 L Chloride Level 108 Carbon Dioxide 7 *L Level Anion Gap 22 H Blood Urea 5 L Nitrogen Creatinine 0.57 Est Glomerular > 60 Filtrat Rate mL/min Glucose Level 302 H Calcium Level 8.4 Phosphorus 2.4 L Level Magnesium Level 1.6 L Test 05/30/19 23:33 05/31/19 00:28 05/31/19 00:31 05/31/19 00:44 Bedside Glucose 296 H 274 H Sodium Level 140 Potassium Level 3.1 L Chloride Level 111 H Carbon Dioxide 10 L Level Anion Gap 19 H Blood Urea 5 L Nitrogen Creatinine 0.59 Est Glomerular > 60 Filtrat Rate mL/min Glucose Level 301 H Calcium Level 8.5 Phosphorus 1.7 L Level Magnesium Level 1.6 L Blood Gas Blood venous Specimen Source Arterial Blood 05/31/2019 1:10 Date Drawn :57 AM Arterial Blood VENOUS LINE Gas Puncture Site [place] Test N/A Venous Blood pH 7.169 *L Venous Blood 25.0 L pCO2 (Temp Corrected ) Venous Blood 26.6 pO2 (Temp Corrected ) Venous Blood 8.9 L HCO3 Venous Blood 53.1 L Oxygen Saturation Venous Blood -17.9 L Base Excess Venous Blood 14.8 Total Hemoglobin Venous Blood 52.9 Oxyhemoglobin Venous Blood 0.1 Methemoglobin Carboxyhemoglob 0.2 in Blood Gas 37.0 Temperature Blood Gas NASAL CANNULA Modality FiO2 27.0 Blood Gas JAYDA ALMAZAN Critical Value Read Back Blood Gas MM Notified Whom Blood Gas 05/31/2019 1:19 Notified Time :33 AM Test 05/31/19 01:35 05/31/19 02:27 05/31/19 03:37 05/31/19 04:37 Bedside Glucose 258 H 297 H 279 H 275 H Test 05/31/19 04:44 05/31/19 04:51 05/31/19 05:12 05/31/19 05:37 Blood Gas Blood venous Specimen Source Arterial Blood 05/31/2019 4:35: Date Drawn 55 AM Arterial Blood VENOUS LINE Gas Puncture Site [place] Test N/A Venous Blood pH 7.166 *L Venous Blood 31.3 L pCO2 (Temp Corrected ) Venous Blood 23.4 L pO2 (Temp Corrected ) Venous Blood 11.1 L HCO3 Venous Blood 48.9 L Oxygen Saturation Venous Blood -16.3 L Base Excess Venous Blood 14.1 Total Hemoglobin Venous Blood 48.7 Oxyhemoglobin Venous Blood 0.1 Methemoglobin Carboxyhemoglob 0.3 in Blood Gas 37.0 Temperature Blood Gas ROOM AIR Modality FiO2 21.0 Blood Gas Ivon FIGUEROA RN Critical Value Read Back Blood Gas MM Notified Whom Blood Gas 05/31/2019 4:42: Notified Time 28 AM Sodium Level 139 Potassium Level 3.3 L Chloride Level 113 H Carbon Dioxide 10 L Level Anion Gap 16 H Blood Urea 4 L Nitrogen Creatinine 0.60 Est Glomerular > 60 Filtrat Rate mL/min Glucose Level 322 H Calcium Level 8.5 Phosphorus 1.1 L Level Magnesium Level 2.5 White Blood 9.1 # Count Red Blood Count 4.10 #L Hemoglobin 12.6 # Hematocrit 36.8 #L Mean 89.8 Corpuscular Volume Mean 30.7 Corpuscular Hemoglobin Mean 34.2 Corpuscular Hemoglobin Conc ent Red Cell 13.6 Distribution Width Platelet Count 375 # Mean Platelet 9.6 Volume Immature 0.800 H Granulocytes % Neutrophils % 53.0 Lymphocytes % 27.3 Monocytes % 15.9 H Eosinophils % 2.3 Basophils % 0.7 Nucleated Red 0.0 Blood Cells % Immature 0.070 H Granulocytes # Neutrophils # 4.8 Lymphocytes # 2.5 Monocytes # 1.5 H Eosinophils # 0.2 Basophils # 0.1 Nucleated Red 0.0 Blood Cells # Triglycerides 279 H Level Cholesterol 261 H Level LDL 175 Cholesterol, Calculated HDL Cholesterol 30 L Cholesterol/HDL 8.7 Ratio Thyroid 0.905 Stimulating Hormone (TSH) Bedside Glucose 299 H Test 05/31/19 06:35 05/31/19 07:39 05/31/19 08:20 05/31/19 08:39 Bedside Glucose 299 H 323 H 266 H Sodium Level 139 Potassium Level 3.6 Chloride Level 115 H Carbon Dioxide 12 L Level Anion Gap 12 Blood Urea 3 L Nitrogen Creatinine 0.55 Est Glomerular > 60 Filtrat Rate mL/min Glucose Level 311 H Calcium Level 8.3 L Phosphorus 0.7 L Level Magnesium Level 2.2 Lipase 133 Test 05/31/19 08:44 Blood Gas Blood venous Specimen Source Arterial Blood 05/31/2019 8:09: Date Drawn 24 AM Arterial Blood VENOUS LINE Gas Puncture Site [place] Test N/A Venous Blood pH 7.241 L Venous Blood 29.2 L pCO2 (Temp Corrected ) Venous Blood 27.3 pO2 (Temp Corrected ) Venous Blood 12.3 L HCO3 Venous Blood 60.4 Oxygen Saturation Venous Blood -13.6 L Base Excess Venous Blood 14.0 Total Hemoglobin Venous Blood 60.0 Oxyhemoglobin Venous Blood 0.3 Methemoglobin Carboxyhemoglob 0.4 in Blood Gas 37.0 Temperature Blood Gas ROOM AIR Modality FiO2 21.0 Blood Gas M.D. Notified Whom Blood Gas 05/31/2019 8:16: Notified Time 55 AM Medications Medication Current Medications Potassium Chloride/Dextrose/ Sod Cl 1,000 ml @ 0 mls/hr Q0M IV Last administered on 05/31/19at 00:12; Admin Dose 100 MLS/HR; Start 05/30/19 at 20:44 Potassium Chloride/Sodium Chloride 1,000 ml @ 0 mls/hr Q0M IV Last administered on 05/30/19at 22:22; Admin Dose 100 MLS/HR; Start 05/30/19 at 20:44 Potassium Chloride/Dextrose/ Sod Cl 1,000 ml @ 0 mls/hr Q0M IV Last administered on 05/31/19at 05:48; Admin Dose 150 MLS/HR; Start 05/30/19 at 20:44 Sodium Chloride 1,000 ml @ 0 mls/hr Q0M IV Last administered on 05/31/19at 05:47; Admin Dose 100 MLS/HR; Start 05/30/19 at 20:44 Dextrose/Sodium Chloride 1,000 ml @ 0 mls/hr Q0M IV ; Start 05/30/19 at 20:44 Insulin Human Regular 100 unit/ Sodium Chloride 101 ml @ 6.75 mls/hr ER DKA PROTOCOL IV Last administered on 05/30/19at 22:26; Admin Dose 6.75 MLS/HR; Start 05/30/19 at 21:00 Miscellaneous Information (* Miscellaneous Pharmacy Order) HYPOGLYCEMIA TREATMENT HYPOGLYCEM PROTOCOL PRN XX .HYPOGLYCEMIA PROTOCOL; Start 05/30/19 at 21:00 Dextrose (D50w Syringe) 50 ml Q15M PRN IV .DECREASED GLUCOSE; Start 05/30/19 at 21:00 Dextrose (D50w Syringe) 25 ml Q15M PRN IV .DECREASED GLUCOSE; Start 05/30/19 at 21:00 Albuterol (Proventil 0.083% (Neb)) 2.5 mg Q4H RESP THERAPY NEB Last administered on 05/31/19at 08:08; Admin Dose 2.5 MG; Start 05/31/19 at 01:00 Acetaminophen (Tylenol Liquid) 650 mg Q6H PRN PO PAIN LEVEL 1-3 OR FEVER; Start 05/30/19 at 21:30 Acetaminophen/ Hydrocodone Bitart ([place] (5/325)) 1 tab Q6H PRN PO PAIN LEVEL 4-6; Start 05/30/19 at 21:30 Morphine Sulfate (morphine) 2 mg Q4H PRN IV PAIN LEVEL 7-10; Start 05/30/19 at 21:30 Docusate Sodium (Colace) 100 mg Q12H PO Last administered on 05/30/19at 21:52; Admin Dose 100 MG; Start 05/30/19 at 21:30 Bisacodyl (Dulcolax) 5 mg DAILY PRN PO CONSTIPATION; Start 05/30/19 at 21:30 Famotidine (Pepcid Iv) 20 mg Q12 IV Last administered on 05/30/19at 21:52; Admin Dose 20 MG; Start 05/30/19 at 21:30 Heparin Sodium (Porcine) (Heparin (5000 Units/1ml)) 5,000 unit Q8 SC Last administered on 05/31/19at 07:37; Admin Dose 5,000 UNIT; Start 05/30/19 at 22:00 Levothyroxine Sodium (Synthroid) 75 mcg BEFORE BREAKFAST PO Last administered on 05/31/19at 09:41; Admin Dose 75 MCG; Start 05/31/19 at 07:00 Sertraline HCl (Zoloft) 50 mg DAILY PO ; Start 05/31/19 at 09:00 Trazodone HCl (Desyrel) 50 mg QHS PO ; Start 05/31/19 at 21:00 Potassium Chloride/Sodium Chloride 1,000 ml @ 0 mls/hr Q0M IV Last administered on 05/31/19at 00:11; Admin Dose 150 MLS/HR; Start 05/31/19 at 00:00 Sodium Phosphate 30 mmol/Sodium Chloride 260 ml @ 65 mls/hr ONCE ONCE IVPB Last administered on 05/31/19at 07:37; Admin Dose 65 MLS/HR; Start 05/31/19 at 06:00; Stop 05/31/19 at 09:59 Ceftriaxone Sodium 50 ml @ 100 mls/hr Q24H IVPB ; Start 05/31/19 at 20:00 DEENA PARMAR MD May 31, 2019 09:48
[2019-05-31] MEDS ORDERED: LACTATED RINGER'S 500 ML IV ONE (10:00)
[2019-05-31] MEDS: FAMOTIDINE 20 MG INJ IV SCH ×2 (11:33→21:16)
[2019-05-31] MEDS: DOCUSATE SODIUM 100 MG CAP PO SCH ×2 (12:10→21:16)
[2019-05-31] MEDS: SERTRALINE 50 MG TAB PO SCH (12:11)
[2019-05-31] MEDS: INSULIN REGULAR, HUMAN 100 UNIT in SOD CHLORIDE 0.9% 100 ML IV SCH ×2 (12:52)
[2019-05-31] MEDS: SUCRALFATE (100 MG/ML) 10ML CUP PO SCH ×3 (12:57→21:11)
[2019-05-31] MEDS ORDERED: MAGNESIUM SULFATE 4 GM/100 ML 100 ML IVPB ONE (15:00)
[2019-05-31] MEDS: POTASSIUM CHLORIDE 20 MEQ POWDER FOR ORAL SOLN PO SCH ×3 (15:04→21:16)
[2019-05-31] MEDS: ACCU-CHEK XX SCH (19:35)
[2019-05-31] MEDS ORDERED: CEFTRIAXONE 1 GM/50 ML (PMX) 50 ML IVPB SCH (20:00)
[2019-05-31] MEDS ORDERED: INSULIN GLARGINE [LANTus] (100 UNITS/ML) SYG SC SCH (21:00)
[2019-05-31] MEDS: INSULIN ASPART [NOVOLOG] 3 ML PEN SC SCH (21:00)
[2019-05-31] MEDS: FISH OIL 1,000 MG CAP PO SCH (21:11)
[2019-05-31] MEDS: traZODone 50 MG TAB PO SCH (21:11)
[2019-06-01] VITALS (16 sets, daily range): BP systolic 86–117; BP diastolic 56–107; PULSE 76–110; RESP 13–28
[2019-06-01] MEDS: ALBUTEROL 0.083% (NEB) 2.5 MG/3 ML AMP NEB SCH ×4 (01:01→21:33)
[2019-06-01] MEDS: ACCU-CHEK XX SCH ×4 (02:11→20:23)
[2019-06-01] MEDS: LEVOTHYROXINE 75 MCG TAB PO SCH (06:09)
[2019-06-01] MEDS: HEPARIN 5,000 UNIT/1 ML VIAL SC SCH ×3 (06:13→21:26)
[2019-06-01] MEDS ORDERED: POTASSIUM CHLORIDE (SR) 20 MEQ TAB PO STA (07:34)
[2019-06-01] MEDS ORDERED: INSULIN ASPART [NOVOLOG] 3 ML PEN SC SCH (07:35)
[2019-06-01] MEDS ORDERED: INSULIN GLARGINE [LANTus] (100 UNITS/ML) SYG SC SCH ×3 (08:00→21:00)
[2019-06-01] MEDS: SERTRALINE 50 MG TAB PO SCH (08:13)
[2019-06-01] MEDS: POTASSIUM CHLORIDE (SR) 20 MEQ TAB PO SCH ×2 (08:14→20:22)
[2019-06-01] MEDS: FISH OIL 1,000 MG CAP PO SCH ×2 (08:14→20:23)
[2019-06-01] MEDS: FAMOTIDINE 20 MG TAB PO SCH ×2 (08:15→20:23)
--- NOTE | 2019-06-01 08:16 | PN ---
Date/Time of Note Date/Time of Note DATE: 06/01/19 TIME: 08:06 Assessment/Plan VTE Prophylaxis Risk score (from Ns)>0 risk: 0 SCD applied (from Ns): No SCD contraindicated: low risk/ambulating Pharmacological prophylaxis: heparin Pharm contraindication: low risk/ambulating Lines/Catheters IV C[facility]from [facility] Peripheral IV Urinary Cath still in place: No Assessment/Plan Problems: (1) DKA (diabetic ketoacidoses) Status: Resolved Comment: Fully resolved and back to baseline Qualifiers: Diabetes mellitus type: other specified (including KATHARINE) Diabetes mellitus complication detail: without coma Qualified Codes: E13.10 - Other specified diabetes mellitus with ketoacidosis without coma (2) Type 1 diabetes mellitus with hyperglycemia Status: Chronic Comment: Adjusting diabetic regimen. Please note the patient reports she would actually prefer ultimately to be on an insulin pump. This is not something we would arrange as an inpatient but would be done as an outpatient I have assured her this can be done with a modest degree of bureaucratic difficulty (3) Hypothyroidism Status: Chronic Comment: Continue with replacement therapy (4) Mixed hyperlipidemia Status: Chronic Comment: Stable on fish oil (5) Acute hypokalemia Status: Acute Comment: As a result of the treatment of the DKA, replace Result Diagram: 06/01/19 0509 06/01/19 0509 Results 24hrs Laboratory Tests Test 05/31/19 08:20 05/31/19 08:39 05/31/19 08:44 05/31/19 09:34 Sodium Level 139 Potassium Level 3.6 Chloride Level 115 H Carbon Dioxide 12 L Level Anion Gap 12 Blood Urea 3 L Nitrogen Creatinine 0.55 Est Glomerular > 60 Filtrat Rate mL/min Glucose Level 311 H Calcium Level 8.3 L Phosphorus 0.7 L Level Magnesium Level 2.2 Lipase 133 Bedside Glucose 266 H 271 H Blood Gas Blood venous Specimen Source Arterial Blood 05/31/2019 8:09: Date Drawn 24 AM Arterial Blood VENOUS LINE Gas Puncture Site Hayden Test N/A Venous Blood pH 7.241 L Venous Blood 29.2 L pCO2 (Temp Corrected ) Venous Blood 27.3 pO2 (Temp Corrected ) Venous Blood 12.3 L HCO3 Venous Blood 60.4 Oxygen Saturation Venous Blood -13.6 L Base Excess Venous Blood 14.0 Total Hemoglobin Venous Blood 60.0 Oxyhemoglobin Venous Blood 0.3 Methemoglobin Carboxyhemoglob 0.4 in Blood Gas 37.0 Temperature Blood Gas ROOM AIR Modality FiO2 21.0 Blood Gas M.D. Notified Whom Blood Gas 05/31/2019 8:16: Notified Time 55 AM Test 05/31/19 10:43 05/31/19 11:41 05/31/19 11:45 05/31/19 12:28 Bedside Glucose 283 H 271 H 329 H Urine Color STRAW Urine Clarity CLEAR Urine pH 5.0 Urine Specific 1.017 Picacho Urine Ketones 1+ H Urine Nitrite NEGATIVE Urine Bilirubin NEGATIVE Urine NEGATIVE Urobilinogen Urine Leukocyte NEGATIVE Esterase Urine 1 Microscopic RBC Urine 4 Microscopic WBC Urine Bacteria FEW A Urine 1+ H Hemoglobin Urine Glucose 3+ H Urine Total NEGATIVE Protein Test 05/31/19 12:44 05/31/19 13:04 05/31/19 13:31 05/31/19 14:33 Blood Gas Blood venous Specimen Source Arterial Blood 05/31/2019 1:15: Date Drawn 42 PM Arterial Blood VENOUS LINE Gas Puncture Site Hayden Test N/A Venous Blood pH 7.278 L Venous Blood 34.0 L pCO2 (Temp Corrected ) Venous Blood 17.9 L pO2 (Temp Corrected ) Venous Blood 15.5 L HCO3 Venous Blood 36.0 L Oxygen Saturation Venous Blood -10.2 L Base Excess Venous Blood 12.3 Total Hemoglobin Venous Blood 35.7 Oxyhemoglobin Venous Blood 0.3 Methemoglobin Carboxyhemoglob 0.4 in Blood Gas 37.0 Temperature Blood Gas 20 Actual Respiration Rat e Blood Gas ROOM AIR Modality FiO2 21.0 Blood Gas L. NELLY MONTELONGO Critical Value Read Back Blood Gas RDIX Notified Whom Blood Gas 05/31/2019 1:34: Notified Time 49 PM Sodium Level 141 Potassium Level 2.9 *L Chloride Level 116 H Carbon Dioxide 16 L Level Anion Gap 9 Blood Urea 2 L Nitrogen Creatinine 0.48 Est Glomerular > 60 Filtrat Rate mL/min Glucose Level 293 H Calcium Level 8.0 L Phosphorus 2.7 # Level Magnesium Level 1.7 Hepatitis B NEGATIVE Surface Antigen Hepatitis C NEGATIVE Antibody Bedside Glucose 317 H 349 H Test 05/31/19 15:47 05/31/19 16:29 05/31/19 16:41 05/31/19 16:44 Bedside Glucose 284 H 312 H Sodium Level 139 Potassium Level 3.3 L Chloride Level 116 H Carbon Dioxide 14 L Level Anion Gap 9 Blood Urea < 2 L Nitrogen Creatinine 0.48 Est Glomerular > 60 Filtrat Rate mL/min Glucose Level 317 H Calcium Level 8.4 Phosphorus 1.5 #L Level Magnesium Level 1.8 Blood Gas Blood venous Specimen Source Arterial Blood 05/31/2019 6:15 Date Drawn :54 PM Arterial Blood VENOUS LINE Gas Puncture Site Hayden Test N/A Venous Blood pH 7.310 L Venous Blood 25.7 L pCO2 (Temp Corrected ) Venous Blood 72.2 H pO2 (Temp Corrected ) Venous Blood 12.6 L HCO3 Venous Blood 95.1 H Oxygen Saturation Venous Blood -12.0 L Base Excess Venous Blood 12.1 Total Hemoglobin Venous Blood 94.6 Oxyhemoglobin Venous Blood 0.1 Methemoglobin Carboxyhemoglob 0.4 in Blood Gas 37.0 Temperature Blood Gas ROOM AIR Modality FiO2 21.0 Blood Gas [place] Notified Whom Blood Gas 05/31/2019 6:37 Notified Time :42 PM Test 05/31/19 17:40 05/31/19 18:30 05/31/19 19:40 05/31/19 20:44 Bedside Glucose 284 H 354 H 270 H Blood Gas Blood venous Specimen Source Arterial Blood 05/31/2019 9:00 Date Drawn :45 PM Arterial Blood VENOUS LINE Gas Puncture Site Hayden Test N/A Venous Blood pH 7.331 Venous Blood 28.6 L pCO2 (Temp Corrected ) Venous Blood 42.1 H pO2 (Temp Corrected ) Venous Blood 14.8 L HCO3 Venous Blood 81.3 H Oxygen Saturation Venous Blood -9.7 L Base Excess Venous Blood 12.8 Total Hemoglobin Venous Blood 80.8 Oxyhemoglobin Venous Blood 0.3 Methemoglobin Carboxyhemoglob 0.3 in Blood Gas 37.0 Temperature Blood Gas ROOM AIR Modality FiO2 21.0 Blood Gas AA Notified Whom Blood Gas 05/31/2019 9:09 Notified Time :44 PM Test 05/31/19 20:45 05/31/19 21:00 05/31/19 22:28 05/31/19 23:34 Bedside Glucose 300 H 313 H 324 H Sodium Level 136 Potassium Level 3.3 L Chloride Level 113 H Carbon Dioxide 15 L Level Anion Gap 8 Blood Urea < 2 L Nitrogen Creatinine 0.45 Est Glomerular > 60 Filtrat Rate mL/min Glucose Level 308 H Calcium Level 8.4 Phosphorus 1.1 L Level Magnesium Level 2.5 Test 06/01/19 00:39 06/01/19 02:02 06/01/19 05:09 Bedside Glucose 317 H 260 H White Blood 6.4 # Count Red Blood Count 3.75 L Hemoglobin 11.4 L Hematocrit 33.0 L Mean 88.0 Corpuscular Volume Mean 30.4 Corpuscular Hemoglobin Mean 34.5 Corpuscular Hemoglobin Conc ent Red Cell 14.1 Distribution Width Platelet Count 318 Mean Platelet 9.5 Volume Immature 0.600 H Granulocytes % Neutrophils % 54.7 Lymphocytes % 28.0 Monocytes % 13.6 H Eosinophils % 2.5 Basophils % 0.6 Nucleated Red 0.0 Blood Cells % Immature 0.040 H Granulocytes # Neutrophils # 3.5 Lymphocytes # 1.8 Monocytes # 0.9 Eosinophils # 0.2 Basophils # 0.0 Nucleated Red 0.0 Blood Cells # Sodium Level 142 Potassium Level 3.0 L Chloride Level 115 H Carbon Dioxide 17 L Level Anion Gap 10 Blood Urea < 2 L Nitrogen Creatinine 0.48 Est Glomerular > 60 Filtrat Rate mL/min Glucose Level 261 H Calcium Level 8.8 Magnesium Level 2.1 Total Bilirubin 0.5 Direct 0.00 Bilirubin Indirect 0.5 Bilirubin Aspartate Amino 13 L Transf (AST/SGO T) Alanine 16 Aminotransferas e (ALT/SGPT) Alkaline 133 H Phosphatase Total Protein 5.9 #L Albumin 3.1 #L Globulin 2.80 Albumin/Globuli 1.10 n Ratio Subjective 24 Hr Interval Summary Free Text/Dictation Patient is feeling much better reports back to baseline Constitutional: no complaints (No fevers chills or sweats) Respiratory: no complaints Cardiovascular: no complaints Gastrointestinal: no complaints Endocrine: no complaints Exam/Review of Systems Exam Vitals Vital Signs Date Temp Pulse Resp B/P (MAP) Pulse Ox O2 O2 Flow FiO2 Time Delivery Rate 06/01/19 87 28 109/70 100 Room Air 06:00 (83) 06/01/19 21 05:46 06/01/19 98.2 04:00 05/31/19 2.0 02:02 Intake and Output 05/31/19 05/31/19 06/01/19 1515:00 23:00 07:00 IntakeIntake Total 3907.25 ml 2667.25 ml 988.50 ml OutputOutput Total 2000 ml 1000 ml BalanceBalance 1907.25 ml 1667.25 ml 988.50 ml Constitutional: alert, oriented Respiratory: clear to auscultation, normal air movement Cardiovascular: regular rate and rhythm, nl pulses Gastrointestinal: soft, nl liver, spleen, non-tender Results Results 24hrs Laboratory Tests Test 05/31/19 08:20 05/31/19 08:39 05/31/19 08:44 05/31/19 09:34 Sodium Level 139 Potassium Level 3.6 Chloride Level 115 H Carbon Dioxide 12 L Level Anion Gap 12 Blood Urea 3 L Nitrogen Creatinine 0.55 Est Glomerular > 60 Filtrat Rate mL/min Glucose Level 311 H Calcium Level 8.3 L Phosphorus 0.7 L Level Magnesium Level 2.2 Lipase 133 Bedside Glucose 266 H 271 H Blood Gas Blood venous Specimen Source Arterial Blood 05/31/2019 8:09: Date Drawn 24 AM Arterial Blood VENOUS LINE Gas Puncture Site Hayden Test N/A Venous Blood pH 7.241 L Venous Blood 29.2 L pCO2 (Temp Corrected ) Venous Blood 27.3 pO2 (Temp Corrected ) Venous Blood 12.3 L HCO3 Venous Blood 60.4 Oxygen Saturation Venous Blood -13.6 L Base Excess Venous Blood 14.0 Total Hemoglobin Venous Blood 60.0 Oxyhemoglobin Venous Blood 0.3 Methemoglobin Carboxyhemoglob 0.4 in Blood Gas 37.0 Temperature Blood Gas ROOM AIR Modality FiO2 21.0 Blood Gas M.D. Notified Whom Blood Gas 05/31/2019 8:16: Notified Time 55 AM Test 05/31/19 10:43 05/31/19 11:41 05/31/19 11:45 05/31/19 12:28 Bedside Glucose 283 H 271 H 329 H Urine Color STRAW Urine Clarity CLEAR Urine pH 5.0 Urine Specific 1.017 Picacho Urine Ketones 1+ H Urine Nitrite NEGATIVE Urine Bilirubin NEGATIVE Urine NEGATIVE Urobilinogen Urine Leukocyte NEGATIVE Esterase Urine 1 Microscopic RBC Urine 4 Microscopic WBC Urine Bacteria FEW A Urine 1+ H Hemoglobin Urine Glucose 3+ H Urine Total NEGATIVE Protein Test 05/31/19 12:44 05/31/19 13:04 05/31/19 13:31 05/31/19 14:33 Blood Gas Blood venous Specimen Source Arterial Blood 05/31/2019 1:15: Date Drawn 42 PM Arterial Blood VENOUS LINE Gas Puncture Site Hayden Test N/A Venous Blood pH 7.278 L Venous Blood 34.0 L pCO2 (Temp Corrected ) Venous Blood 17.9 L pO2 (Temp Corrected ) Venous Blood 15.5 L HCO3 Venous Blood 36.0 L Oxygen Saturation Venous Blood -10.2 L Base Excess Venous Blood 12.3 Total Hemoglobin Venous Blood 35.7 Oxyhemoglobin Venous Blood 0.3 Methemoglobin Carboxyhemoglob 0.4 in Blood Gas 37.0 Temperature Blood Gas 20 Actual Respiration Rat e Blood Gas ROOM AIR Modality FiO2 21.0 Blood Gas L. NELLY MONTELONGO Critical Value Read Back Blood Gas RDIX Notified Whom Blood Gas 05/31/2019 1:34: Notified Time 49 PM Sodium Level 141 Potassium Level 2.9 *L Chloride Level 116 H Carbon Dioxide 16 L Level Anion Gap 9 Blood Urea 2 L Nitrogen Creatinine 0.48 Est Glomerular > 60 Filtrat Rate mL/min Glucose Level 293 H Calcium Level 8.0 L Phosphorus 2.7 # Level Magnesium Level 1.7 Hepatitis B NEGATIVE Surface Antigen Hepatitis C NEGATIVE Antibody Bedside Glucose 317 H 349 H Test 05/31/19 15:47 05/31/19 16:29 05/31/19 16:41 05/31/19 16:44 Bedside Glucose 284 H 312 H Sodium Level 139 Potassium Level 3.3 L Chloride Level 116 H Carbon Dioxide 14 L Level Anion Gap 9 Blood Urea < 2 L Nitrogen Creatinine 0.48 Est Glomerular > 60 Filtrat Rate mL/min Glucose Level 317 H Calcium Level 8.4 Phosphorus 1.5 #L Level Magnesium Level 1.8 Blood Gas Blood venous Specimen Source Arterial Blood 05/31/2019 6:15 Date Drawn :54 PM Arterial Blood VENOUS LINE Gas Puncture Site Hayden Test N/A Venous Blood pH 7.310 L Venous Blood 25.7 L pCO2 (Temp Corrected ) Venous Blood 72.2 H pO2 (Temp Corrected ) Venous Blood 12.6 L HCO3 Venous Blood 95.1 H Oxygen Saturation Venous Blood -12.0 L Base Excess Venous Blood 12.1 Total Hemoglobin Venous Blood 94.6 Oxyhemoglobin Venous Blood 0.1 Methemoglobin Carboxyhemoglob 0.4 in Blood Gas 37.0 Temperature Blood Gas ROOM AIR Modality FiO2 21.0 Blood Gas [place] Notified Whom Blood Gas 05/31/2019 6:37 Notified Time :42 PM Test 05/31/19 17:40 05/31/19 18:30 05/31/19 19:40 05/31/19 20:44 Bedside Glucose 284 H 354 H 270 H Blood Gas Blood venous Specimen Source Arterial Blood 05/31/2019 9:00 Date Drawn :45 PM Arterial Blood VENOUS LINE Gas Puncture Site Hayden Test N/A Venous Blood pH 7.331 Venous Blood 28.6 L pCO2 (Temp Corrected ) Venous Blood 42.1 H pO2 (Temp Corrected ) Venous Blood 14.8 L HCO3 Venous Blood 81.3 H Oxygen Saturation Venous Blood -9.7 L Base Excess Venous Blood 12.8 Total Hemoglobin Venous Blood 80.8 Oxyhemoglobin Venous Blood 0.3 Methemoglobin Carboxyhemoglob 0.3 in Blood Gas 37.0 Temperature Blood Gas ROOM AIR Modality FiO2 21.0 Blood Gas AA Notified Whom Blood Gas 05/31/2019 9:09 Notified Time :44 PM Test 05/31/19 20:45 05/31/19 21:00 05/31/19 22:28 05/31/19 23:34 Bedside Glucose 300 H 313 H 324 H Sodium Level 136 Potassium Level 3.3 L Chloride Level 113 H Carbon Dioxide 15 L Level Anion Gap 8 Blood Urea < 2 L Nitrogen Creatinine 0.45 Est Glomerular > 60 Filtrat Rate mL/min Glucose Level 308 H Calcium Level 8.4 Phosphorus 1.1 L Level Magnesium Level 2.5 Test 06/01/19 00:39 06/01/19 02:02 06/01/19 05:09 Bedside Glucose 317 H 260 H White Blood 6.4 # Count Red Blood Count 3.75 L Hemoglobin 11.4 L Hematocrit 33.0 L Mean 88.0 Corpuscular Volume Mean 30.4 Corpuscular Hemoglobin Mean 34.5 Corpuscular Hemoglobin Conc ent Red Cell 14.1 Distribution Width Platelet Count 318 Mean Platelet 9.5 Volume Immature 0.600 H Granulocytes % Neutrophils % 54.7 Lymphocytes % 28.0 Monocytes % 13.6 H Eosinophils % 2.5 Basophils % 0.6 Nucleated Red 0.0 Blood Cells % Immature 0.040 H Granulocytes # Neutrophils # 3.5 Lymphocytes # 1.8 Monocytes # 0.9 Eosinophils # 0.2 Basophils # 0.0 Nucleated Red 0.0 Blood Cells # Sodium Level 142 Potassium Level 3.0 L Chloride Level 115 H Carbon Dioxide 17 L Level Anion Gap 10 Blood Urea < 2 L Nitrogen Creatinine 0.48 Est Glomerular > 60 Filtrat Rate mL/min Glucose Level 261 H Calcium Level 8.8 Magnesium Level 2.1 Total Bilirubin 0.5 Direct 0.00 Bilirubin Indirect 0.5 Bilirubin Aspartate Amino 13 L Transf (AST/SGO T) Alanine 16 Aminotransferas e (ALT/SGPT) Alkaline 133 H Phosphatase Total Protein 5.9 #L Albumin 3.1 #L Globulin 2.80 Albumin/Globuli 1.10 n Ratio Medications Medication Current Medications Miscellaneous Information (* Miscellaneous Pharmacy Order) HYPOGLYCEMIA TREATMENT HYPOGLYCEM PROTOCOL PRN XX .HYPOGLYCEMIA PROTOCOL; Start 05/30/19 at 21:00 Dextrose (D50w Syringe) 50 ml Q15M PRN IV .DECREASED GLUCOSE; Start 05/30/19 at 21:00 Dextrose (D50w Syringe) 25 ml Q15M PRN IV .DECREASED GLUCOSE; Start 05/30/19 at 21:00 Albuterol (Proventil 0.083% (Neb)) 2.5 mg Q4H RESP THERAPY NEB Last administered on 06/01/19at 05:46; Admin Dose 2.5 MG; Start 05/31/19 at 01:00 Acetaminophen (Tylenol Liquid) 650 mg Q6H PRN PO PAIN LEVEL 1-3 OR FEVER; Start 05/30/19 at 21:30 Acetaminophen/ Hydrocodone Bitart ([place] (5/325)) 1 tab Q6H PRN PO PAIN LEVEL 4-6; Start 05/30/19 at 21:30 Morphine Sulfate (morphine) 2 mg Q4H PRN IV PAIN LEVEL 7-10; Start 05/30/19 at 21:30 Docusate Sodium (Colace) 100 mg Q12H PO Last administered on 05/31/19at 21:16; Admin Dose 100 MG; Start 05/30/19 at 21:30 Bisacodyl (Dulcolax) 5 mg DAILY PRN PO CONSTIPATION; Start 05/30/19 at 21:30 Heparin Sodium (Porcine) (Heparin (5000 Units/1ml)) 5,000 unit Q8 SC Last administered on 06/01/19at 06:13; Admin Dose 5,000 UNIT; Start 05/30/19 at 22:00 Levothyroxine Sodium (Synthroid) 75 mcg BEFORE BREAKFAST PO Last administered on 06/01/19at 06:09; Admin Dose 75 MCG; Start 05/31/19 at 07:00 Sertraline HCl (Zoloft) 50 mg DAILY PO Last administered on 05/31/19 12:11; Admin Dose 50 MG; Start 05/31/19 at 09:00 Trazodone HCl (Desyrel) 50 mg QHS PO Last administered on 05/31/19 21:11; Admin Dose 50 MG; Start 05/31/19 at 21:00 Ceftriaxone Sodium 50 ml @ 100 mls/hr Q24H IVPB Last administered on 05/31/19 21:11; Admin Dose 100 MLS/HR; Start 05/31/19 at 20:00 Sucralfate (Carafate Susp) 1 gm QID PO Last administered on 05/31/19 21:11; Admin Dose 1 GM; Start 05/31/19 at 13:00; Stop 06/07/19 at 12:59 Fish Oil (Fish Oil) 2,000 mg BID PO Last administered on 05/31/19 21:11; Admin Dose 2,000 MG; Start 05/31/19 at 21:00 Diagnostic Test (Pha) (Accu-Chek) 1 ea 02 XX Last administered on 06/01/19at 02:11; Admin Dose 1 EA; Start 06/01/19 at 02:00 Diagnostic Test (Pha) (Accu-Chek) 1 ea 2 HOURS AFTER MEALS XX ; Start 05/31/19 at 19:35 Insulin Aspart (Novolog Insulin Pen) 18 unit WITH MEALS SC ; Start 06/01/19 at 07:35 Insulin Aspart (Novolog Insulin Pen) NOVOLOG *MODERATE* ALGORITHM WITH MEALS BEDTIME SC ; Start 05/31/19 at 21:00 Insulin Glargine (Lantus) 34 units QHS SC Last administered on 05/31/19at 21:44; Admin Dose 34 UNITS; Start 05/31/19 at 21:00 Famotidine (Pepcid) 20 mg BID PO ; Start 06/01/19 at 09:00 DEENA PARMAR MD Jun 01, 2019 08:16
[2019-06-01] MEDS: INSULIN ASPART [NOVOLOG] 3 ML PEN SC SCH ×8 (08:21→21:00)
[2019-06-01] MEDS: DOCUSATE SODIUM 100 MG CAP PO SCH ×2 (08:30→21:27)
[2019-06-01] MEDS: traZODone 50 MG TAB PO SCH (20:23)
[2019-06-02] MEDS: ALBUTEROL 0.083% (NEB) 2.5 MG/3 ML AMP NEB SCH ×5 (01:00→17:00)
[2019-06-02 01:59] VITALS: BP 101/66; PULSE 94; RESP 16
[2019-06-02] MEDS: ACCU-CHEK XX SCH ×2 (02:00→10:00)
[2019-06-02] MEDS: HEPARIN 5,000 UNIT/1 ML VIAL SC SCH ×2 (06:15→13:31)
[2019-06-02] MEDS: LEVOTHYROXINE 75 MCG TAB PO SCH (06:16)
[2019-06-02 07:33] VITALS: BP 99/59; PULSE 86; RESP 20
[2019-06-02] MEDS: INSULIN ASPART [NOVOLOG] 3 ML PEN SC SCH ×6 (08:19→17:51)
[2019-06-02] MEDS: FISH OIL 1,000 MG CAP PO SCH (08:54)
[2019-06-02] MEDS: DOCUSATE SODIUM 100 MG CAP PO SCH (08:54)
[2019-06-02] MEDS: SERTRALINE 50 MG TAB PO SCH (08:54)
[2019-06-02] MEDS: FAMOTIDINE 20 MG TAB PO SCH (08:54)
--- NOTE | 2019-06-02 12:15 | PDOCDIS ---
Discharge Instructions CONDITION [id number] Patient Condition: [id number] Stable HOME CARE INSTRUCTIONS: [id number] Your diet recommendation is: [id number] Carbohydrate controlled diet. FOLLOW UP/APPOINTMENTS Follow-up Plan Follow-up with Dr.Rokaw Harvey, Zbigniew Jordan MD Specialty Endocrinology Comments Office Address [address] [place] [address], [address] [place] [id number] Office Follow-up with primary care physician in 1 week Follow-up with Bailey Barillas,diabetic nurse at [facility] for more information of insulin pump LILIAN SZYMANSKI NP Jun 02, 2019 12:15
--- NOTE | 2019-06-02 12:19 | DS ---
Date/Time of Note Date/Time of Note DATE: 06/02/19 TIME: 12:18 Discharge Summary Admission/Discharge Info Admit Date/Time May 30, 2019 at 21:35 Discharge Date/Time Discharge Diagnosis DKA. Resolved Insulin-dependent diabetes, type I Triglyceridemia/dyslipidemia Hypothyroidism Mood disorders Patient Condition: Stable Hospital Course This is a 29-year-old female with type 1 diabetes, hypothyroidism, triglyceridemia, mood disorders, admitted to [facility] with feeling generalized weakness, nausea with multiple episodes of nonbloody/nonbilious vomiting, found to have uncontrolled diabetes with diabetic ketoacidosis. Apparently, patient was not taking her insulin for 2 days.. Patient was treated with DKA protocol with stabilization of blood sugars. She was then successfully transitioned to subcutaneous insulin regimen. Patient was continued on home medication for underlying comorbidities. Anion gap closed. Blood sugars remained stable. Patient did not have any further GI symptoms. She was tolerating diet and activities well. At this time, no further inpatient work-up needed. Patient was also seen by for hospitalist medicine who is also an senior vice president & general counsel discussed option of insulin pump with her. This needs to be followed up as outpatient and she was given [facility] diabetic team resources to discuss this. Patient will be discharged home with continuation of insulin home regimen as her DKA was precipitated by her not taking her insulin for 2 days and does not need to be any further readjusted. Approximately 60-minute was spent on coordinating the discharge on this patient. Patient was seen in collaboration with Dr. Silver. Home Meds Active Scripts [Insulin Glargine] 100 UNITS/ML SOLN No Conflict Check, 34 UNITS SC DAILY@1999, #30 DAYSX 3 28 Prov:SOURAV ARAUJO MD 11/19/18 Insulin Aspart* (Novolog Insulin Pen*) 100 Unit/Ml Soln, 18 UNIT SC WITH MEALS, #30 DAYSX 3 28 Prov:SOURAV ARAUJO MD 11/19/18 Reported Medications Levothyroxine Sodium* (Levothyroxine Sodium*) 75 Mcg Tablet, 75 MCG PO BEFORE BREAKFAST, #30 TAB 05/30/19 Gemfibrozil* (Gemfibrozil*) 600 Mg Tablet, 600 MG PO BID, TAB 05/30/19 Trazodone Hcl* (Desyrel*) 50 Mg Tab, 50 MG PO QHS, #30 TAB 05/30/19 Sertraline Hcl* (Sertraline Hcl*) 50 Mg Tablet, 50 MG PO DAILY, #30 TAB 05/30/19 Metformin Hcl* (Metformin Hcl*) 500 Mg Tablet, 500 MG PO WITH BREAKFAST DINNE, #60 TAB 11/14/18 Discontinued Scripts Pen Needle, Diabetic (Advocate Pen Needle) 1 Each Dis.needle, EACH MC, #30 Prov:SOURAV ARAUJO MD 11/19/18 Blood Glucose Strips-Dispmeter (Resolver Blood Glucose System) 1 Each Kit, EACH MC, #1 Prov:SOURAV ARAUJO MD 11/19/18 Follow-up Plan Follow-up with Dr.Rokaw Harvey, Zbigniew Jordan MD Specialty Endocrinology Comments Office Address [address] [place] [address], [address] [place] [address] Office Follow-up with primary care physician in 1 week Follow-up with Bailey Barillas,diabetic nurse at [facility] for more information of insulin pump Primary Care Provider Care Physician No Primary Pending Labs Laboratory Tests Test 06/01/19 12:45 06/01/19 14:40 06/01/19 17:42 06/01/19 20:16 Bedside 101 186 142 102 Glucose mg/dL (70-220) mg/dL (70-220) mg/dL (70-220) mg/dL (70-220) Test 06/01/19 21:22 06/02/19 04:28 06/02/19 08:17 06/02/19 10:46 Bedside 101 144 95 Glucose mg/dL (70-220) mg/dL (70-220) mg/dL (70-220) White Blood 5.2 Count 10^3/ul (4.8-1 0.8) Red Blood 3.92 Count 10^6/ul (4.20- 5.40) Hemoglobin 12.2 g/dl (12.0-16. 0) Hematocrit 34.6 % (37.0-47.0) Mean 88.3 Corpuscular fl (82.0-101.0 Volume ) Mean 31.1 Corpuscular pg (29.0-33.0) Hemoglobin Mean 35.3 Corpuscular g/dl (32.0-37. Hemoglobin Conc 0) ent Red Cell 14.1 Distribution % (11.5-14.5) Width Platelet Count 342 10^3/UL (140-4 15) Mean Platelet 10.1 Volume fl (7.4-10.4) Immature 0.600 Granulocytes % % (0.001-0.429 ) Neutrophils % 37.3 % (39.0-77.0) Lymphocytes % 42.6 % (15.0-51.0) Monocytes % 15.0 % (0.0-11.0) Eosinophils % 3.5 % (0.0-7.0) Basophils % 1.0 % (0.0-2.0) Nucleated Red 0.0 Blood Cells % /100WBC (0.0-0 .0) Immature 0.030 Granulocytes # 10^3/ul (0.0-0 .031) Neutrophils # 1.9 10^3/ul (1.6-7 .5) Lymphocytes # 2.2 10^3/ul (0.8-2 .9) Monocytes # 0.8 10^3/ul (0.3-0 .9) Eosinophils # 0.2 10^3/ul (0.0-0 .5) Basophils # 0.1 10^3/ul (0.0-0 .1) Nucleated Red 0.0 Blood Cells # 10^3/ul (0.0-0 .0) Test 06/02/19 12:13 Lab Scanned REFERENCE Report LAB [id number] LILIAN SZYMANSKI NP Jun 02, 2019 12:19
[2019-06-02 14:00] VITALS: BP 101/63; PULSE 79; RESP 18
[2019-06-02] MEDS ORDERED: INSULIN GLARGINE [LANTus] (100 UNITS/ML) SYG SC SCH (21:00)
== END 2019-06-02 18:47 | disposition home or self-care (01) | DRG 638 ==
LOC: E/R 18:32 → ICU 21:35 → 2NE 06-01 11:50
PROVIDERS: ADMIT Family Medicine; ATTEND Family Medicine
DX: E10.10 Type 1 diabetes mellitus with ketoacidosis without coma (principal); N30.01 Acute cystitis with hematuria; E87.6 Hypokalemia; E03.9 Hypothyroidism, unspecified; F39 Unspecified mood [affective] disorder; E78.5 Hyperlipidemia, unspecified; E78.2 Mixed hyperlipidemia
CPT/HCPCS: 36415; 71045; 74177; 80048; 80053; 80061; 81001; 81025; 82306; 82533; 82607; 82803; 82962; 83036; 83525; 83690; 83735; 84100; 84443; 84681; 85025; 86337; 86803; 87081; 87086; 87340; 94640; 94664; 96361; 96365; 96375; J0696; J1644; J1815; J2405; J3475; J3480; J7030; J7050; J7120; Q9967